=== PATIENT | male | born 1935 | race Caucasian/White ===

== ENCOUNTER → 2018-01-19 | Outpatient (CLI) | payer MEDICARE, BC ==
[2018-01-19 19:43] LABS: Protein, Total 7.3 g/dL (6.2-8.2); Rheumatoid Factor 72 IU/mL (0-15)
[2018-01-20 17:01] LABS: Hemoglobin A1C 5.8 % (4.0-6.0)
[2018-01-20 17:51] LABS: Gamma Globulin 1.04 g/dL (0.70-1.50)
== END | disposition home or self-care (01) ==
LOC: LABWHC1 13:29
PROVIDERS: ATTEND Psychiatry & Neurology Neurology
DX: G62.9 Polyneuropathy, unspecified (principal)
CPT/HCPCS: 36415; 82550; 83036; 84165; 85652; 86038; 86235; 86334; 86431

== ENCOUNTER 2022-11-09 16:01 | Inpatient (IN) | payer MEDICARE, BC ==
[2022-11-09] MEDS ORDERED: SODIUM CHLORIDE 0.9% 500 ML 500 ML IV STA (16:23)
--- NOTE | 2022-11-09 16:38 | ED ---
General Adult HPI - General Chief complaint: Altered Mental Status Stated complaint: Poss. sepsis Time Seen by Provider: 11/09/22 16:15 Source: patient, EMS, RN notes reviewed, old records reviewed Mode of arrival: EMS Limitations: altered mental status - History of Present Illness Initial comments: This is an 87-year-old male who presents to the emergency department from the long term they sent him because he was more lethargic than normal. They were concerned that he might have an infection but they did not indicate any possible source. Patient himself is a poor historian not giving us any history no family members or caregivers with the patient for any further history. - Related Data Home Medications Medication Instructions Recorded Confirmed Aspirin 81 mg PO DAILY@89912/09/13 11/09/22 Atenolol [Tenormin] 25 mg PO DAILY@89912/09/13 11/09/22 Finasteride 5 mg PO HS@209912/09/13 11/09/22 Cholecalciferol [Vitamin D3 (25 25 mcg PO DAILY@89911/09/22 11/09/22 Mcg = 1000 Iu)] EPINEPHrine (Auto Inject) [Epipen] 0.3 mg IM ONCE PRN 11/09/22 11/09/22 Famotidine [Pepcid] 20 mg PO DAILY@89911/09/22 11/09/22 Olanzapine Reconstituted 2.5 mg IM Q4H PRN 11/09/22 11/09/22 Simvastatin [Zocor] 20 mg PO HS@209911/09/22 11/09/22 Tamsulosin [Flomax] 0.4 mg PO HS@209911/09/22 11/09/22 risperiDONE [RisperDAL] 0.25 mg PO BID@0900,209911/09/22 11/09/22 Allergies Allergy/AdvReac Type Severity Reaction Status Date / Time acetaminophen [From Vicodin] Allergy Unknown Verified 11/09/22 16:56 atorvastatin [From Lipitor] Allergy Unknown, Verified 11/09/22 16:56 Information from [facility] [place] bee venom protein (honey bee) Allergy Unknown, Verified 11/09/22 16:56 Information from [facility] [place] ezetimibe [From Zetia] Allergy Unknown, Verified 11/09/22 16:56 Information from [facility] [place] hydrocodone bitartrate Allergy Unknown, Verified 11/09/22 16:56 [From Vicodin] Information from [facility] [place] metronidazole [From Flagyl] Allergy Unknown, Verified 11/09/22 16:56 Information from [facility] [place] nitrofurantoin Allergy Unknown, Verified 11/09/22 16:56 [From Macrodantin] Information from [facility] the [place] Review of Systems ROS Statement: Those systems with pertinent positive or pertinent negative responses have been documented in the HPI. ROS Other: All systems not noted in ROS Statement are negative. Past Medical History Past Medical History: Hyperlipidemia Additional Past Medical History / Comment(s): See Dr Weaver H&P,neuropathy, hx kidney stone History of Any Multi-Drug Resistant Organisms: None Reported Past Surgical History: Appendectomy, Heart Catheterization Past Anesthesia/Blood Transfusion Reactions: No Reported Reaction Past Psychological History: No Psychological Hx Reported Past Alcohol Use History: Occasional Past Drug Use History: None Reported - Past Family History Mother Family Medical History: Cancer General Exam - General Exam Comments Initial Comments: GENERAL: Patient is well-developed and well-nourished. Patient is nontoxic and well- hydrated and is in no acute distress. Patient is very fatigued. ENT: Neck is soft and supple. No significant lymphadenopathy is noted. Oropharynx is clear. Moist mucous membranes. Neck has full range of motion without eliciting any pain. EYES: The sclera were anicteric and conjunctiva were pink and moist. Extraocular movements were intact and pupils were equal round and reactive to light. Eyelids were unremarkable. PULMONARY: Unlabored respirations. Good breath sounds bilaterally. No audible rales rhonchi or wheezing was noted. CARDIOVASCULAR: There is a regular rate and rhythm without any murmurs gallops or rubs. ABDOMEN: Soft and nontender with normal bowel sounds. SKIN: Skin is clear with no lesions or rashes and otherwise unremarkable. NEUROLOGIC: Patient is alert and oriented 1. Cranial nerves II through XII are grossly intact. Motor and sensory are also intact. Normal speech, volume and content. Symmetrical smile. MUSCULOSKELETAL: Normal extremities with adequate strength and full range of motion. No lower extremity swelling or edema. No calf tenderness. LYMPHATICS: No significant lymphadenopathy is noted PSYCHIATRIC: Unable to assess Limitations: altered mental status Course Vital Signs 11/09/22 11/09/22 16:11 18:45 Temperature 98.3 F Pulse Rate 84 79 Respiratory 28 H 22 Rate Blood Pressure 88/54 95/50 O2 Sat by Pulse 96 95 Oximetry Medical Decision Making - Medical Decision Making EKG was interpreted by myself shows atrial fibrillation at 85 bpm QRS 101 Q-T intervals 443 QTC is 46. Patient's EKG shows no ST segment elevation or depression. Was pt. sent in by a medical professional or institution (, PA, HVAC INSTRUCTOR, urgent care, hospital, or long term...) When possible be specific @ -Patient was sent in by the long term Did you speak to anyone other than the patient for history (EMS, parent, family, police, friend...)? What history was obtained from this source @ -No Did you review nursing and triage notes (agree or disagree)? Why? @ -I reviewed and agree with nursing and triage notes Were old charts reviewed (outside hosp., previous admission, EMS record, old EKG, old radiological studies, urgent care reports/EKG's, long term records)? Report findings @ -I reviewed the long term charts lab work Differential Diagnosis (chest pain, altered mental status, abdominal pain women, abdominal pain men, vaginal bleeding, weakness, fever, dyspnea, syncope, headache, dizziness, GI bleed, back pain, seizure, CVA, palpatations, mental health, musculoskeletal)? @ -Differential Altered Mental Status: Hypoglycemia, DKA, hypercapnia, ETOH, overdose, CO poisoning, trauma, myxedema coma, HTN encephalopathy, infection, encephalitis, psychosis, intercranial hemorrhage, hepatic encephalopathy, meningitis, CVA, this is not meant to be an all-inclusive list EKG interpreted by me (3pts min.). @ -As above X-rays interpreted by me (1pt min.). @ -Chest x-ray showed no acute abnormality CT interpreted by me (1pt min.). @ -CT of the brain showed no acute abnormality U/S interpreted by me (1pt. min.). @ -None done What testing was considered but not performed or refused? (CT, X-rays, U/S, labs)? Why? @ -None What meds were considered but not given or refused? Why? @ -None Did you discuss the management of the patient with other professionals (professionals i.e. , ROSINA, HVAC INSTRUCTOR, lab, RT, psych nurse, social work case manager, cattle knocker, teacher, health promotion officer, case supervisor)? Give summary @ -I spoke with Dr. Almazan about this patient he agreed to admit the patient Was smoking cessation discussed for >3mins.? @ -No Was critical care preformed (if so, how long)? @ -No Were there social determinants of health that impacted care today? How? (Homelessness, low income, unemployed, alcoholism, drug addiction, transportation, low edu. Level, literacy, decrease access to med. care, senior living, rehab)? @ -No Was there de-escalation of care discussed even if they declined (Discuss DNR or withdrawal of care, Hospice)? DNR status @ -No What co-morbidities impacted this encounter? (DM, HTN, Smoking, COPD, CAD, Cancer, CVA, ARF, Chemo, Hep., AIDS, mental health diagnosis, sleep apnea, morbid obesity)? @ -None Was patient admitted / discharged? Hospital course, mention meds given and route, prescriptions, significant lab abnormalities, going to OR and other pertinent info. @ -Patient was started on antibiotics for the urinary tract infection patient will also have his Coumadin held troponin was mildly elevated at will be repeated. A hepatitis panel will be also added. Because the patient's bilirubin 6.6. Undiagnosed new problem with uncertain prognosis? @ -No Drug Therapy requiring intensive monitoring for toxicity (Heparin, Nitro, Insulin, Cardizem)? @ -No Were any procedures done? @ -No Diagnosis/symptom? @ -Urinary tract infection Acute, or Chronic, or Acute on Chronic? @ -Acute Uncomplicated (without systemic symptoms) or Complicated (systemic symptoms)? @ -Complicated Side effects of treatment? @ -No Exacerbation, Progression, or Severe Exacerbation? @ -No Poses a threat to life or bodily function? How? (Chest pain, USA, NC, pneumonia, PE, COPD, DKA, ARF, appy, cholecystitis, CVA, Diverticulitis, Homicidal, Suicidal, threat to staff... and all critical care pts) @ -Yes this could lead to sepsis and end organ dysfunction - Lab Data Result diagrams: 11/09/22 16:35 11/09/22 16:35 Lab Results 11/09/22 11/09/22 11/09/22 Range/Units 16:35 16:35 16:35 WBC 15.1 H (3.8-10.6) k/uL RBC 2.76 L (4.30-5.90) m/uL Hgb 8.9 L (13.0-17.5) gm/dL Hct 26.2 L (39.0-53.0) % MCV 94.8 (80.0-100.0) fL MCH 32.2 (25.0-35.0) pg MCHC 33.9 (31.0-37.0) g/dL RDW 14.3 (11.5-15.5) % Plt Count 266 (150-450) k/uL MPV 8.1 Neutrophils % 95 % Lymphocytes % 2 % Monocytes % 3 % Eosinophils % 0 % Basophils % 0 % Neutrophils # 14.3 H (1.3-7.7) k/uL Lymphocytes # 0.2 L (1.0-4.8) k/uL Monocytes # 0.4 (0-1.0) k/uL Eosinophils # 0.0 (0-0.7) k/uL Basophils # 0.0 (0-0.2) k/uL Hypochromasia Slight PT 46.0 H (9.0-12.0) sec INR 4.7 H (<1.2) APTT 32.0 H (22.0-30.0) sec Sodium 134 L (137-145) mmol/L Potassium 3.6 (3.5-5.1) mmol/L Chloride 107 (98-107) mmol/L Carbon Dioxide 16 L (22-30) mmol/L Anion Gap 11 mmol/L BUN 53 H (9-20) mg/dL Creatinine 1.73 H (0.66-1.25) mg/dL Est GFR (CKD-EPI)AfAm 40 (>60 ml/min/1.73 sqM) Est GFR (CKD-EPI)NonAf 35 (>60 ml/min/1.73 sqM) Glucose 162 H (74-99) mg/dL Plasma Lactic Acid Cameron (0.7-2.0) mmol/L Calcium 7.5 L (8.4-10.2) mg/dL Magnesium 2.1 (1.6-2.3) mg/dL Total Bilirubin 6.6 H (0.2-1.3) mg/dL AST 71 H (17-59) U/L ALT 35 (4-49) U/L Alkaline Phosphatase 86 (38-126) U/L Troponin I (0.000-0.034) ng/mL Total Protein 5.4 L (6.3-8.2) g/dL Albumin 2.4 L (3.5-5.0) g/dL Urine Color Urine Appearance (Clear) Urine pH (5.0-8.0) Ur Specific [place] (1.001-1.035) Urine Protein (Negative) Urine Glucose (UA) (Negative) Urine Ketones (Negative) Urine Blood (Negative) Urine Nitrite (Negative) Urine Bilirubin (Negative) Urine Urobilinogen (<2.0) mg/dL Ur Leukocyte Esterase (Negative) Urine RBC (0-5) /hpf Urine WBC (0-5) /hpf Urine Bacteria (None) /hpf Urine Mucus (None) /hpf 11/09/22 11/09/22 11/09/22 Range/Units 16:35 16:35 16:35 WBC (3.8-10.6) k/uL RBC (4.30-5.90) m/uL Hgb (13.0-17.5) gm/dL Hct (39.0-53.0) % MCV (80.0-100.0) fL MCH (25.0-35.0) pg MCHC (31.0-37.0) g/dL RDW (11.5-15.5) % Plt Count (150-450) k/uL MPV Neutrophils % % Lymphocytes % % Monocytes % % Eosinophils % % Basophils % % Neutrophils # (1.3-7.7) k/uL Lymphocytes # (1.0-4.8) k/uL Monocytes # (0-1.0) k/uL Eosinophils # (0-0.7) k/uL Basophils # (0-0.2) k/uL Hypochromasia PT (9.0-12.0) sec INR (<1.2) APTT (22.0-30.0) sec Sodium (137-145) mmol/L Potassium (3.5-5.1) mmol/L Chloride (98-107) mmol/L Carbon Dioxide (22-30) mmol/L Anion Gap mmol/L BUN (9-20) mg/dL Creatinine (0.66-1.25) mg/dL Est GFR (CKD-EPI)AfAm (>60 ml/min/1.73 sqM) Est GFR (CKD-EPI)NonAf (>60 ml/min/1.73 sqM) Glucose (74-99) mg/dL Plasma Lactic Acid Cameron 1.6 (0.7-2.0) mmol/L Calcium (8.4-10.2) mg/dL Magnesium (1.6-2.3) mg/dL Total Bilirubin (0.2-1.3) mg/dL AST (17-59) U/L ALT (4-49) U/L Alkaline Phosphatase (38-126) U/L Troponin I 0.037 H* (0.000-0.034) ng/mL Total Protein (6.3-8.2) g/dL Albumin (3.5-5.0) g/dL Urine Color Light [place] Urine Appearance Cloudy (Clear) Urine pH 5.5 (5.0-8.0) Ur Specific [place] 1.017 (1.001-1.035) Urine Protein 1+ H (Negative) Urine Glucose (UA) Negative (Negative) Urine Ketones Negative (Negative) Urine Blood Large H (Negative) Urine Nitrite Negative (Negative) Urine Bilirubin Negative (Negative) Urine Urobilinogen 3.0 (<2.0) mg/dL Ur Leukocyte Esterase Large H (Negative) Urine RBC 157 H (0-5) /hpf Urine WBC 74 H (0-5) /hpf Urine Bacteria Rare H (None) /hpf Urine Mucus Rare H (None) /hpf Disposition Clinical Impression: Urinary tract infection, Coagulopathy, Elevated troponin, Hyperbilirubinemia Disposition: ADMITTED IP TO THIS HOSP Referrals: Evan Strange MD [STAFF PHYSICIAN] - 1-2 days Time of Disposition: 20:25 Decision Time: 20:26
[2022-11-09 16:48] LABS: Basophils % (A) 0 %; Eosinophils % (A) 0 %; HCT 26.2 % (39.0-53.0); HGB 8.9 gm/dL (13.0-17.5); Hypochromasia Slight; Lymphocytes # (A) 0.2 k/uL (1.0-4.8); Lymphocytes % (A) 2 %; MCH 32.2 pg (25.0-35.0); MCHC 33.9 g/dL (31.0-37.0); MCV 94.8 fL (80.0-100.0); Mean Platelet Volume 8.1; Monocytes # (A) 0.4 k/uL (0-1.0); Monocytes % (A) 3 %; Neutrophils # (A) 14.3 k/uL (1.3-7.7); Neutrophils % (A) 95 %; Platelet Count 266 k/uL (150-450); RBC 2.76 m/uL (4.30-5.90); RDW 14.3 % (11.5-15.5); WBC 15.1 k/uL (3.8-10.6)
[2022-11-09 17:05] LABS: INR 4.7 (<1.2)
--- NOTE | 2022-11-09 17:20 | CT ---
EXAMINATION TYPE: CT brain wo con DATE OF EXAM: 11/09/2022 COMPARISON: None HISTORY: 87-year-old male weakness, fever TECHNIQUE: Examination was done in axial plane without intravenous contrast. Coronal and sagittal r econstructions performed. CT DLP: 1113.4 mGycm Automated exposure control for dose reduction was used. FINDINGS: There is no evidence of acute intracranial hemorrhage, acute ischemic changes, mass, mass-effect, or extra-axial fluid collection. There is no effacement of cerebral sulci or basal subarachnoid cister ns. There is no midline shift. Weems-white matter distinction is preserved. 1.0 cm mucosal retention cyst roof of the right maxillary sinus. Trace mucosal thickening ethmoid air cells. Mastoid air cells are well pneumatized. Orbits and globes are intact. There is moderate generalized supratentorial volume loss. Secondary mild prominence to the ventricula r system. Mild subinsular white matter hypodensity and postsurgical hemispheres. IMPRESSION: Moderate generalized atrophy and mild burden of chronic small vessel ischemic disease. No acute intra cranial abnormality seen.
--- NOTE | 2022-11-09 17:21 | XR ---
EXAMINATION TYPE: XR chest 2V DATE OF EXAM: 11/09/2022 COMPARISON: 12/16/2013 HISTORY: 87-year-old male with weakness TECHNIQUE: AP and lateral views FINDINGS: Left anterior chest wall pacemaker generator with right atrial and right ventricular leads. Heart upp er limits of normal in size. Mild interstitial prominence. Old healed right posterior rib fracture de formity fifth and sixth ribs. Chronic full-thickness rotator cuff tears on both sides. No consolidati on or pleural effusion. IMPRESSION: Chronic changes without acute cardiopulmonary process.
[2022-11-09 17:37] LABS: Appearance,Urine Cloudy (Clear); Bacteria,Urine Rare /hpf; Bilirubin,Urine Negative (Negative); Blood,Urine Large (Negative); Color,Urine Light Orange; Glucose,Urine (UA) Negative (Negative); Ketones,Urine Negative (Negative); Leukocyte Esterase,Urine Large (Negative); Mucus,Urine Rare /hpf; Nitrite,Urine Negative (Negative); PH, Urine 5.5 (5.0-8.0); Protein,Urine 1+ (Negative); RBC,Urine 157 /hpf (0-5); Specific Gravity,Urine 1.017 (1.001-1.035); WBC,Urine 74 /hpf (0-5)
[2022-11-09 17:51] LABS: ALT 35 U/L (4-49); AST 71 U/L (17-59); African American GFR (CKD) 40 (>60 ml/min/1.73 sqM); Albumin 2.4 g/dL (3.5-5.0); Alkaline Phosphatase 86 U/L (38-126); Anion Gap 11 mmol/L; Blood Urea Nitrogen 53 mg/dL (9-20); Calcium 7.5 mg/dL (8.4-10.2); Carbon Dioxide 16 mmol/L (22-30); Chloride 107 mmol/L (98-107); Glucose 162 mg/dL (74-99); Magnesium 2.1 mg/dL (1.6-2.3); Non-African American GFR(CKD) 35 (>60 ml/min/1.73 sqM); Sodium 134 mmol/L (137-145); Total Bilirubin 6.6 mg/dL (0.2-1.3); Total Protein 5.4 g/dL (6.3-8.2)
[2022-11-09 17:58] LABS: Potassium 3.6 mmol/L (3.5-5.1)
[2022-11-09] MEDS ORDERED: SODIUM CHLORIDE 0.9% 1,000 ML IV ONE (20:26)
[2022-11-09] MEDS: TAMSULOSIN 0.4 MG CAP.ER.24H PO SCH (22:44)
[2022-11-10] MEDS: FINASTERIDE 5 MG TAB PO SCH ×2 (00:44→21:09)
[2022-11-10] MEDS: NON FORMULARY DRUG (Simvastatin 20 MG Tab) PO SCH ×2 (00:45→20:09)
[2022-11-10] MEDS: risperiDONE 0.25 MG TAB PO SCH ×3 (00:45→21:10)
[2022-11-10] MEDS ORDERED: atenoloL 25 MG TAB PO SCH (09:00)
[2022-11-10] MEDS: FAMOTIDINE 20 MG TAB PO SCH (10:02)
[2022-11-10] MEDS: CHOLECALCIFEROL 25 MCG (1000 IU) TABLET PO SCH (10:02)
[2022-11-10] MEDS: ASPIRIN 81 MG PO SCH (10:02)
[2022-11-10] MEDS ORDERED: HYDROcodone/APAP 5-325MG 1 EACH TAB PO STA (12:48)
[2022-11-10] MEDS: SODIUM CHLORIDE 0.9% 1,000 ML IV SCH (17:07)
--- NOTE | 2022-11-10 17:41 | XR ---
EXAMINATION TYPE: XR shoulder complete BILAT DATE OF EXAM: 11/10/2022 COMPARISON: NONE HISTORY: 87-year-old male bilateral shoulder pain TECHNIQUE: 3 views each side FINDINGS: There are chronic full-thickness tears on both sides with abutment of the humeral heads to the unders urface of the acromion. Fragmentation of the left acromioclavicular degenerative chronic abutment str ess fracture. There is associated minimal joint osteoarthrosis with a marginal spurring. Moderate deg enerative change of the AC joints. Left anterior chest wall pacemaker generator noted. Old healed doug ateral rib fracture deformities. IMPRESSION: Bilateral chronic rotator cuff arthropathy. Possible chronic stress fracture left acromion from the o ngoing glenohumeral joint instability. Moderate bilateral AC joint OA.
--- NOTE | 2022-11-10 18:15 | P.HPIM ---
History of Present Illness H&P Date: 11/10/22 Chief Complaint: Tired 87-year-old patient, brought in from [facility] in the [place]/[facility]. Patient was noted by the nurses to have decreased mental status. 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 Was found to be more lethargic and difficult to arouse at times. EKG was paced rhythm. Initial blood pressure was 73/44. Pulse of 91. Pulse ox of 97%. Repeat blood pressure was 86/40. Patient himself is not able to give any much history. found a significant bruise in the left side of the body especially the flank going over the thigh. Patient is not sure if he hada fall. Patient not a good historian. Can only answer some simple questions. Nonambulatory. Weak in both the shoulders. Pain in the shoulder. Has a Tabares catheter with some blood in there. Review of systems: GEN.: Tired. Significant bruising on the left side EYES: None HEENT: None NECK: None RESPIRATORY: None CARDIOVASCULAR: None GASTROINTESTINAL: None GENITOURINARY: Only catheter MUSCULOSKELETAL: Joint pains LYMPHATICS: None HEMATOLOGICAL: None PSYCHIATRY: Forgetful NEUROLOGICAL: None Past medical history to include: Atrial fibrillation, stroke, hyperlipidemia, , kidney stones. 6 sinus syndrome with a pacemaker. Peripheral neuropathy Social history: Nonsmoker. Alcohol occasionally. Currently at [facility] in the [place] Physical examination: VITAL SIGNS: 98.3, 84, 26, 88/54, 96% room air upon presentation GENERAL: BMI 28.9, declining but awake not in distress. Significant bruising in the left flank going down to the left thigh. EYES: Pupils equal. Conjunctiva normal. HEENT: External appearance of nose and ears normal, oral cavity grossly normal. NECK: JVD not raised; masses not palpable. HEART: First and second heart sounds are normal; no edema. LUNGS: Respiratory rate normal; clear to auscultation. ABDOMEN: Soft, nontender, liver spleen not palpable, no masses palpable. PSYCH: Patient can't tell his name, he knows in the hospital. Does not know why he is here. Not sure about the season.l. MUSCULOSKELETAL: Very limited range of motion both the shoulders. Evidence of OA in other joints. NEUROLOGICAL: Cranial nerves grossly intact; no facial asymmetry, power and sensation grossly intact. LYMPHATICS: No lymph nodes palpable in the axilla and neck INVESTIGATIONS, reviewed in the clinical context: X-ray shoulders: Bilateral chronic rotator cuff arthropathy. Possible chronic stress fracture left acromion from the ongoing glenohumeral joint instability. 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 White count 15.1 hemoglobin 8.9 platelets 266 INR 4.7 sodium 134 potassium 3.6 BUN 53 creatinine 1.73 bicarb 16 Troponin I 0.037, 0.021 Total bilirubin 6.6 AST 71 ALT 35 UA: Blood: Large. Leukoesterase large. WBC 74. EKG tracing personally reviewed by me-atrial fibrillation. Rate 85 Chest x-ray film personally reviewed by me-some hyperinflation. Pacemaker. Possible chronic changes. Computed tomography scan brain without contrast: Moderate atrophy. Chronic small vessel ischemic changes. Assessment and plan: -Presented with increasing lethargy. Mental status changes. Likely metabolic encephalopathy. Exact cause unknown. Patient's creatinine is elevated. IV fluids. -Coumadin toxicity. No overt bleeding. significant bruising in the left flank going down to the left thigh. Rule out retroperitoneal bleed/bleeding around the source. Computed tomography scan abdomen and pelvis without contrast ordered. Vitamin K 2.5 mg by mouth. 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 Rate controlled. Stop atenolol for now follow blood pressure. We will use Lopressor 12.5 by mouth daily. Because of significant bruising stop Coumadin -Chronic medical debility -Abnormal renal function. Acute versus chronic. Urine showing 1+ protein. Order renal ultrasound. Consult nephrology. -Hypotension. Hold off atenolol. IV fluids -GERD Pepcid -BPH Finasteride 5 mg daily at bedtime. Flomax 0.4 mg daily at bedtime. -Bilateral shoulder very limited range of motion.Bilateral chronic rotator cuff arthropathy. Possible chronic stress fracture left acromion from the ongoing glenohumeral joint instability. 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 . Consult orthopedics. -DO NOT RESUSCITATE Past Medical History Past Medical History: Atrial Fibrillation, CVA/TIA, Hyperlipidemia Additional Past Medical History / Comment(s): See Dr Weaver H&P,neuropathy, hx kidney stone History of Any Multi-Drug Resistant Organisms: None Reported Past Surgical History: Appendectomy, Heart Catheterization Past Anesthesia/Blood Transfusion Reactions: No Reported Reaction Smoking Status: Never smoker - Past Family History Mother Family Medical History: Cancer Medications and Allergies Home Medications Medication Instructions Recorded Confirmed Type Aspirin 81 mg PO DAILY@89912/09/13 11/09/22 History Atenolol [Tenormin] 25 mg PO DAILY@89912/09/13 11/09/22 History Finasteride 5 mg PO HS@209912/09/13 11/09/22 History Cholecalciferol [Vitamin D3 (25 25 mcg PO DAILY@89911/09/22 11/09/22 History Mcg = 1000 Iu)] EPINEPHrine (Auto Inject) [Epipen] 0.3 mg IM ONCE PRN 11/09/22 11/09/22 History Famotidine [Pepcid] 20 mg PO DAILY@89911/09/22 11/09/22 History Olanzapine Reconstituted 2.5 mg IM Q4H PRN 11/09/22 11/09/22 History Simvastatin [Zocor] 20 mg PO HS@209911/09/22 11/09/22 History Tamsulosin [Flomax] 0.4 mg PO HS@209911/09/22 11/09/22 History risperiDONE [RisperDAL] 0.25 mg PO BID@0900,209911/09/22 11/09/22 History Allergies Allergy/AdvReac Type Severity Reaction Status Date / Time acetaminophen [From Vicodin] Allergy Unknown Verified 11/09/22 16:56 atorvastatin [From Lipitor] Allergy Unknown, Verified 11/09/22 16:56 Information from [facility] on the [place] bee venom protein (honey bee) Allergy Unknown, Verified 11/09/22 16:56 Information from [facility] [place] ezetimibe [From Zetia] Allergy Unknown, Verified 11/09/22 16:56 Information from [facility] on the [place] hydrocodone bitartrate Allergy Unknown, Verified 11/09/22 16:56 [From Vicodin] Information from [facility] [place] metronidazole [From Flagyl] Allergy Unknown, Verified 11/09/22 16:56 Information from [facility] on the [place] nitrofurantoin Allergy Unknown, Verified 11/09/22 16:56 [From Macrodantin] Information from [facility] on the [place] Physical Exam Vitals: Vital Signs Temp Pulse Pulse Resp BP BP Pulse Ox 11/10/22 12:01 100/59 07/16/23 11:57 97.5 F L 63 18 84/43 95 11/10/22 08:57 97.4 F L 79 18 109/62 96 11/10/22 08:36 98 11/10/22 04:00 97.8 F 68 18 97/54 98 11/10/22 01:59 68 18 11/09/22 23:40 97.4 F L 68 18 126/72 96 11/09/22 21:45 73 16 102/62 98 11/09/22 18:45 79 22 95/50 95 11/09/22 16:11 98.3 F 84 28 H 88/54 96 FiO2 11/10/22 12:01 11/10/22 11:57 11/10/22 08:57 11/10/22 08:36 21 11/10/22 04:00 11/10/22 01:59 11/09/22 23:40 11/09/22 21:45 11/09/22 18:45 11/09/22 16:11 Intake and Output 11/09/22 11/10/22 11/10/22 22:59 06:59 14:59 Output Total 1200 600 Balance -1200 -600 Output: Urine 1200 600 Other: Voiding Method Indwelling Catheter # Bowel Movements 1 Weight 86.183 kg 86.183 kg Results CBC & Chem 7: 11/09/22 16:35 11/09/22 16:35 Labs: Abnormal Lab Results - Last 24 Hours (Table) 11/09/22 11/09/22 11/09/22 Range/Units 16:35 16:35 16:35 WBC 15.1 H (3.8-10.6) k/uL RBC 2.76 L (4.30-5.90) m/uL Hgb 8.9 L (13.0-17.5) gm/dL Hct 26.2 L (39.0-53.0) % Neutrophils # 14.3 H (1.3-7.7) k/uL Lymphocytes # 0.2 L (1.0-4.8) k/uL PT 46.0 H (9.0-12.0) sec INR 4.7 H (<1.2) APTT 32.0 H (22.0-30.0) sec Sodium 134 L (137-145) mmol/L Carbon Dioxide 16 L (22-30) mmol/L BUN 53 H (9-20) mg/dL Creatinine 1.73 H (0.66-1.25) mg/dL Glucose 162 H (74-99) mg/dL Calcium 7.5 L (8.4-10.2) mg/dL Total Bilirubin 6.6 H (0.2-1.3) mg/dL AST 71 H (17-59) U/L Troponin I (0.000-0.034) ng/mL Total Protein 5.4 L (6.3-8.2) g/dL Albumin 2.4 L (3.5-5.0) g/dL Urine Protein (Negative) Urine Blood (Negative) Ur Leukocyte Esterase (Negative) Urine RBC (0-5) /hpf Urine WBC (0-5) /hpf Urine Bacteria (None) /hpf Urine Mucus (None) /hpf 11/09/22 11/09/22 Range/Units 16:35 16:35 WBC (3.8-10.6) k/uL RBC (4.30-5.90) m/uL Hgb (13.0-17.5) gm/dL Hct (39.0-53.0) % Neutrophils # (1.3-7.7) k/uL Lymphocytes # (1.0-4.8) k/uL PT (9.0-12.0) sec INR (<1.2) APTT (22.0-30.0) sec Sodium (137-145) mmol/L Carbon Dioxide (22-30) mmol/L BUN (9-20) mg/dL Creatinine (0.66-1.25) mg/dL Glucose (74-99) mg/dL Calcium (8.4-10.2) mg/dL Total Bilirubin (0.2-1.3) mg/dL AST (17-59) U/L Troponin I 0.037 H* (0.000-0.034) ng/mL Total Protein (6.3-8.2) g/dL Albumin (3.5-5.0) g/dL Urine Protein 1+ H (Negative) Urine Blood Large H (Negative) Ur Leukocyte Esterase Large H (Negative) Urine RBC 157 H (0-5) /hpf Urine WBC 74 H (0-5) /hpf Urine Bacteria Rare H (None) /hpf Urine Mucus Rare H (None) /hpf Thrombosis Risk Factor Assmnt - Choose All That Apply Any of the Below Risk Factors Present?: Yes Each Risk Factor Represents 3 Points: Age 75 years or older Thrombosis Risk Factor Assessment Total Risk Factor Score: 3 Thrombosis Risk Factor Assessment Level: Moderate Risk
[2022-11-10] MEDS ORDERED: PHYTONADIONE ORAL 5 MG/5 ML ORAL.SYRG PO STA (18:20)
--- NOTE | 2022-11-10 19:08 | CT ---
EXAMINATION TYPE: CT abdomen pelvis wo con DATE OF EXAM: 11/10/2022 COMPARISON: None HISTORY: 87-year-old male with pain, possible left retroperitoneal/retropsoas bleed CT DLP: 1073.7 mGycm. Automated exposure control for dose reduction was used. TECHNIQUE: Contiguous axial scanning of the abdomen and pelvis without IV contrast. Coronal and sagit mya reconstructions performed. FINDINGS: Right atrial and right ventricular pacer leads. Heart is borderline in size. No pericardial effusion. There are trace bilateral pleural effusions with adjacent atelectasis. Small hiatal hernia. Motion artifacts are present. Allowing for this limitation along with lack of IV contrast, the liver, adrenal glands, spleen, and p ancreas show no gross abnormality. The gallbladder is hydropic and 4.3 cm wide but without any surrounding inflammation, probably due to fasting state. Suspect extrarenal pelvis on both sides. Mild generalized anasarca change. No dilated small bowel, free fluid, or free air. No mesenteric retroperitoneal lymphadenopathy. There is a small indirect right inguinal hernia containing nonobstructed small bowel loops. No signif icant stool burden. Mild colonic diverticulosis. No pericolonic masses are seen. Moderate atherosclerotic calcification abdominal aorta and iliac arteries. Tabares catheter. Moderate circumferential bladder wall thickening. Prostate gland measures 6.3 cm wide . There is focal left inguinal perivascular hematoma or other fluid collection measuring 6.7 x 3.5 cm. Further Doppler ultrasound evaluation recommended to exclude pseudoaneurysm. Correlate for any cathet er procedure at the left groin. No pelvic lymphadenopathy. Bones: Moderate spondylotic change mid to lower cervical spine. IMPRESSION: 1. Focal left inguinal region heterogeneous soft tissue and fluid collection measuring 6.7 x 3.5 cm. Possible hematoma. Further Doppler ultrasound evaluation recommended to exclude pseudoaneurysm here. Correlate for any recent catheter procedure here. 2. Mild anasarca and trace pleural effusions. Correlate for third spacing. 3. Small right indirect hernia containing a couple nonobstructed small bowel loops. 4. Bilateral extra renal pelves. No danyell hydronephrosis. A Tabares catheter is present. Moderate irena dder wall thickening could represent chronic bladder wall hypertrophy or cystitis. Prostatomegaly/BPH at 6.3 cm wide.
--- NOTE | 2022-11-10 19:11 | US ---
EXAMINATION TYPE: US kidneys/renal and bladder DATE OF EXAM: 11/10/2022 COMPARISON: CT same day CLINICAL INDICATION: Male, 87 years old with history of Evaluate for CKD; UTI, CKD, patient is very c onfused EXAM MEASUREMENTS: Right Kidney: 11.3 x 5.7 x 6.7cm Left Kidney: 11.8 x 4.5 x 6.1cm Right Kidney: Dilation of the right renal pelvis. Left Kidney: No hydronephrosis or masses seen Bladder: umanzor There is no evidence for hydronephrosis at this point in time. No nephrolithiasis is seen. No rupesh s are identified. The urinary bladder is anechoic. Bilateral ureteral jets are seen. IMPRESSION: 1. Umanzor catheter in appropriate position. 2. Bilateral extrarenal pelves as seen on CT. No definitive hydronephrosis
[2022-11-10] MEDS: TAMSULOSIN 0.4 MG CAP.ER.24H PO SCH (21:08)
[2022-11-11] MEDS: SODIUM CHLORIDE 0.9% 1,000 ML IV SCH ×2 (07:03→15:49)
[2022-11-11] MEDS: risperiDONE 0.25 MG TAB PO SCH ×2 (08:54→20:52)
[2022-11-11] MEDS: FAMOTIDINE 20 MG TAB PO SCH (08:54)
[2022-11-11] MEDS: ASPIRIN 81 MG PO SCH (08:54)
[2022-11-11] MEDS: CHOLECALCIFEROL 25 MCG (1000 IU) TABLET PO SCH (08:54)
[2022-11-11 09:26] LABS: INR 1.7 (<1.2); Prothrombin Time 16.6 sec (9.0-12.0)
[2022-11-11 09:37] LABS: Basophils % (A) 0 %; Eosinophils % (A) 0 %; HCT 32.5 % (39.0-53.0); HGB 10.4 gm/dL (13.0-17.5); Hypochromasia Moderate; Lymphocytes # (A) 0.1 k/uL (1.0-4.8); Lymphocytes % (A) 1 %; MCH 30.6 pg (25.0-35.0); MCV 95.7 fL (80.0-100.0); Mean Platelet Volume 8.3; Monocytes # (A) 0.2 k/uL (0-1.0); Monocytes % (A) 2 %; Neutrophils # (A) 12.4 k/uL (1.3-7.7); Neutrophils % (A) 97 %; Platelet Count 177 k/uL (150-450); Poikilocytosis Slight; RBC 3.39 m/uL (4.30-5.90); RDW 14.2 % (11.5-15.5); WBC 12.9 k/uL (3.8-10.6)
[2022-11-11 10:06] LABS: African American GFR (CKD) >90 (>60 ml/min/1.73 sqM); Anion Gap 7 mmol/L; Blood Urea Nitrogen 33 mg/dL (9-20); Calcium 7.5 mg/dL (8.4-10.2); Carbon Dioxide 21 mmol/L (22-30); Chloride 114 mmol/L (98-107); Glucose 148 mg/dL (74-99); Non-African American GFR(CKD) 82 (>60 ml/min/1.73 sqM); Potassium 2.8 mmol/L (3.5-5.1); Sodium 142 mmol/L (137-145)
[2022-11-11] MEDS ORDERED: Potassium Replacement Protocol 1 EACH MISC MISCELLANE PRN (11:51)
[2022-11-11] MEDS ORDERED: POTASSIUM CHLORIDE 20 MEQ in WATER FOR INJECTION 1 100ML.BAG IVPB STA (11:51)
--- NOTE | 2022-11-11 12:16 | P.CNOR ---
History of Present Illness - [facility] Consult date: 11/11/22 Consult reason: joint pain (Bilateral shoulder pain) History of present illness: Patient is an 87-year-old male who was admitted to [facility] in hospital after being transferred from subacute rehab due to lethargy and altered mental status. Patient was found to have multiple lab abnormalities including very elevated INR. Patient was admitted to [facility] for further evaluation. 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 Patient was complaining of bilateral shoulder pain, x-rays were ordered. Our orthopedic team was then consulted. Patient was evaluated today at bedside, he is resting in his hospital bed. Obtaining a medical history and review of systems was difficult. Patient states that both shoulders have bothered him for a very long time, he denies any recent surgical intervention. Patient is unsure if he has had any recent falls. He notes most of the pain in the shoulders with movement. Review of Systems Constitutional: Reports as per [facility] Past Medical History Past Medical History: Atrial Fibrillation, CVA/TIA, Hyperlipidemia Additional Past Medical History / Comment(s): See Dr Weaver H&P,neuropathy, hx kidney stone History of Any Multi-Drug Resistant Organisms: None Reported Past Surgical History: Appendectomy, Heart Catheterization Past Anesthesia/Blood Transfusion Reactions: No Reported Reaction Smoking Status: Never smoker - Past Family History Mother Family Medical History: Cancer Medications and Allergies Home Medications Medication Instructions Recorded Confirmed Type Aspirin 81 mg PO DAILY@89912/09/13 11/09/22 History Atenolol [Tenormin] 25 mg PO DAILY@89912/09/13 11/09/22 History Finasteride 5 mg PO HS@2100 12/09/13 11/09/22 History Cholecalciferol [Vitamin D3 (25 25 mcg PO DAILY@89911/09/22 11/09/22 History Mcg = 1000 Iu)] EPINEPHrine (Auto Inject) [Epipen] 0.3 mg IM ONCE PRN 11/09/22 11/09/22 History Famotidine [Pepcid] 20 mg PO DAILY@89911/09/22 11/09/22 History Olanzapine Reconstituted 2.5 mg IM Q4H PRN 11/09/22 11/09/22 History Simvastatin [Zocor] 20 mg PO HS@2100 11/09/2211/09/23 History Tamsulosin [Flomax] 0.4 mg PO HS@209911/09/22 11/09/22 History risperiDONE [RisperDAL] 0.25 mg PO BID@09,209911/09/22 11/09/22 History Allergies Allergy/AdvReac Type Severity Reaction Status Date / Time acetaminophen [From Vicodin] Allergy Unknown Verified 11/09/22 16:56 atorvastatin [From Lipitor] Allergy Unknown, Verified 11/09/22 16:[address] [facility] on the [place] bee venom protein (honey bee) Allergy Unknown, Verified 11/09/22 16:[address] [facility] [place] ezetimibe [From Zetia] Allergy Unknown, Verified 11/09/22 16:[address] [facility] [place] hydrocodone bitartrate Allergy Unknown, Verified 11/09/22 16:56 [From Vicodin] Information from [facility] [place] metronidazole [From Flagyl] Allergy Unknown, Verified 11/09/22 16:[address] [facility] [place] nitrofurantoin Allergy Unknown, Verified 11/09/22 16:56 [From Macrodantin] Information from [facility] [place] Physical Examination Bilateral upper extremities: No obvious open lesions or sores are visualized throughout the extremity. There are multiple areas of ecchymosis throughout the bilateral upper extremities. Deformity is noted on the left shoulder compared to the right hand side with chronic migration of the humeral head Patient demonstrates obvious tenderness with palpation surrounding the shoulder, this including general joint line in the acromioclavicular joint. Patient is nontender with palpation throughout the elbow, and forearm. He does have some chronic deformities the right wrist which is painful surrounding. No tenderness with palpation surrounding the left elbow, left hand or wrist Range of motion of the shoulder is very limited due to pain, both actively and passively. Elbow extension and flexion both passively and actively reproduced minimal discomfort. Pain is reproduced with flexion and extension of the right wrist. Left wrist and hand have painless range of motion both actively and passively Strength testing was not assessed of the bilateral upper extremities Sensation to light touch throughout the extremity was intact bilaterally Radial nerve pulses are 2+ bilaterally Results - Labs Labs: Abnormal Lab Results - Last 24 Hours (Table) 11/11/22 11/11/22 11/11/22 Range/Units 08:49 08:49 08:49 WBC 12.9 H (3.8-10.6) k/uL RBC 3.39 L (4.30-5.90) m/uL Hgb 10.4 L (13.0-17.5) gm/dL Hct 32.5 L (39.0-53.0) % Neutrophils # 12.4 H (1.3-7.7) k/uL Lymphocytes # 0.1 L (1.0-4.8) k/uL PT 16.6 H (9.0-12.0) sec INR 1.7 H (<1.2) Potassium 2.8 L (3.5-5.1) mmol/L Chloride 114 H (98-107) mmol/L Carbon Dioxide 21 L (22-30) mmol/L BUN 33 H (9-20) mg/dL Glucose 148 H (74-99) mg/dL Calcium 7.5 L (8.4-10.2) mg/dL H & H 11/09/22 11/11/22 Range/Units 16:35 08:49 Hgb 8.9 L 10.4 L (13.0-17.5) gm/dL Hct 26.2 L 32.5 L (39.0-53.0) % Coagulation 11/09/22 11/11/22 Range/Units 16:35 08:49 INR 4.7 H 1.7 H (<1.2) Result Diagrams: 11/11/22 08:49 11/11/22 08:49 - Diagnostic results Shoulder x-ray: report reviewed, image reviewed (X-rays are reviewed of the bilateral shoulders. Chronic rotator cuff arthropathy noted bilaterally. S uperior migration of the humeral head noted of the bilateral shoulders. Osseous changes noted to the left acromion, this due to the rotator cuff arthropathy. No acute fractures or dislocations ) Assessment and Plan Assessment: Bilateral shoulder pain Bilateral shoulder rotator cuff arthropathy Chronic medical debility Other medical comorbidities Plan: I was able to discuss the case, was to include both physical exam findings and imaging studies my attending Dr. Wynn. No emergent orthopedic surgical intervention is recommended at this time Recommended conservative measures, this to include ice, Tylenol or NSAIDs, okay with low-dose narcotics due to the severity of both shoulders DVT prophylaxis per primary medical service Due to patient's current medical state, orthopedically he is not a candidate at this time for surgical intervention, patient would need bilateral reverse total shoulder arthroplasties. Please contact our service with any further questions regarding this patient Time with Patient: Less than 30
--- NOTE | 2022-11-11 12:17 | P.NPCON ---
History of Present Illness - Reason for Consult acute renal failure - History of Present Illness Patient is an 87-year-old male admitted from [facility] with history of decreased mentation. Patient does have previous history of CVA but there was deterioration of his mental status noted. On admission blood pressure was low with systolic at 73 mmHg. A Tabares catheter was placed with what appears to be 1200 mL of urine obtained on initial insertion. No significant hydronephrosis noted on ultrasound. Serum creatinine was 1.7 on initial admission and improved to 0.7 today. Currently maintained on IV fluids. Systolic blood pressure now 1 46 mmHg. Patient does not communicate much. Review of Systems As per HPI. Past Medical History Past Medical History: Atrial Fibrillation, CVA/TIA, Hyperlipidemia Additional Past Medical History / Comment(s): See Dr Weaver H&P,neuropathy, hx kidney stone History of Any Multi-Drug Resistant Organisms: None Reported Past Surgical History: Appendectomy, Heart Catheterization Past Anesthesia/Blood Transfusion Reactions: No Reported Reaction Smoking Status: Never smoker - Past Family History Mother Family Medical History: Cancer Medications and Allergies Home Medications Medication Instructions Recorded Confirmed Type Aspirin 81 mg PO DAILY@89912/09/13 11/09/22 History Atenolol [Tenormin] 25 mg PO DAILY@89912/09/13 11/09/22 History Finasteride 5 mg PO HS@209912/09/13 11/09/22 History Cholecalciferol [Vitamin D3 (25 25 mcg PO DAILY@89911/09/22 11/09/22 History Mcg = 1000 Iu)] EPINEPHrine (Auto Inject) [Epipen] 0.3 mg IM ONCE PRN 11/09/22 11/09/22 History Famotidine [Pepcid] 20 mg PO DAILY@89911/09/22 11/09/22 History Olanzapine Reconstituted 2.5 mg IM Q4H PRN 11/09/22 11/09/22 History Simvastatin [Zocor] 20 mg PO HS@209911/09/22 11/09/22 History Tamsulosin [Flomax] 0.4 mg PO HS@209911/09/22 11/09/22 History risperiDONE [RisperDAL] 0.25 mg PO BID@0900,209911/09/22 11/09/22 History Allergies Allergy/AdvReac Type Severity Reaction Status Date / Time acetaminophen [From Vicodin] Allergy Unknown Verified 11/09/22 16:56 atorvastatin [From Lipitor] Allergy Unknown, Verified 11/09/22 16:56 Information from [facility] [place] bee venom protein (honey bee) Allergy Unknown, Verified 11/09/22 16:56 Information from [facility] [place] ezetimibe [From Zetia] Allergy Unknown, Verified 11/09/22 16:56 Information from [facility] [place] hydrocodone bitartrate Allergy Unknown, Verified 11/09/22 16:56 [From Vicodin] Information from [facility] [place] metronidazole [From Flagyl] Allergy Unknown, Verified 11/09/22 16:56 Information from [facility] [place] nitrofurantoin Allergy Unknown, Verified 11/09/22 16:56 [From Macrodantin] Information from [facility] [place] Physical Exam Vitals: Vital Signs Temp Pulse Resp BP Pulse Ox FiO2 11/11/22 09:03 97 21 11/11/22 08:56 98.2 F 100 16 146/77 97 11/11/22 04:00 98.1 F 77 18 131/64 96 11/11/22 00:00 98.1 F 76 18 133/68 96 11/10/22 20:00 97.8 F 83 18 119/66 96 11/10/22 17:06 98.8 F 79 18 106/63 96 11/10/22 14:00 63 18 Intake and Output 11/10/22 11/11/22 11/11/22 22:59 06:59 14:59 Intake Total 0 35 Output Total 500 450 Balance -500 -450 35 Intake: IV 10 Invasive Line 1 10 Oral 0 25 Output: Urine 500 450 Other: Voiding Method Indwelling Catheter Indwelling Catheter Patient is awake, comfortable, no acute distress Examination of the heart S1 and S2 Examination the lungs decreased breath sounds at the bases Abdomen is soft mild tenderness noted Examination lower extremity shows no significant edema 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 He is able to move his upper extremities. Results - Lab Results Most recent lab results Calcium 7.5 mg/dL (8.4-10.2) L 11/11/22 08:49 Magnesium 2.1 mg/dL (1.6-2.3) 11/09/22 16:35 11/11/22 08:49 11/11/22 08:49 Assessment and Plan Assessment: 1. Acute kidney injury ATN secondary to low blood pressure as well as element of underlying urine retention. Currently with Tabares catheter and maintained on IV fluids with improved blood pressure. 2. Mental status changes secondary to volume depletion, metabolic encephalopathy. Patient has history of underlying dementia and previous history of CVA 3. Coumadin related coagulopathy 4. Chronic persistent A. fib 5. History of BPH 6. Hypokalemia secondary to decreased intake 7. Pyuria rule out underlying UTI Plan: Continue with Tabares catheter Continue with IV fluids Continue Flomax Check urine cultures Thank you for the consultation. We will continue to follow the patient with you during his hospitalization.
[2022-11-11] MEDS: POTASSIUM CHLORIDE 10 MEQ in WATER FOR INJECTION 1 100ML.BAG IVPB SCH ×9 (12:37→23:06)
[2022-11-11 12:51] LABS: Hepatitis A Antibody IgM Nonreactive; Hepatitis B Core IgM Nonreactive; Hepatitis B Surface Antigen Nonreactive; Hepatitis C IgG Antibody Nonreactive
[2022-11-11] MEDS: ACETAMINOPHEN TAB 325 MG TAB PO PRN (14:56)
--- NOTE | 2022-11-11 15:02 | P.PN ---
Subjective Progress Note Date: 11/11/22 87-year-old patient, brought in from [facility] [place]. Patient was noted by the nurses to have decreased mental status. 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 Was found to be more lethargic and difficult to arouse at times. EKG was paced rhythm. Initial blood pressure was 73/44. Pulse of 91. Pulse ox of 97%. Repeat blood pressure was 86/40. Patient himself is not able to give any much history. found a significant bruise in the left side of the body especially the flank going over the thigh. Patient is not sure if he hada fall. Patient not a good historian. Can only answer some simple questions. Nonambulatory. Weak in both the shoulders. Pain in the shoulder. Has a Tabares catheter with some blood in there. 11/11. Patient seen and examined. Patient is alert to self and person. Family at the bedside. PHYSICAL EXAMINATION: GENERAL: The patient is alert and oriented x1, not in any acute distress. Well developed, well nourished. HEENT: Pupils are round and equally reacting to light. EOMI. No scleral icterus. No conjunctival pallor. Normocephalic, atraumatic. No pharyngeal erythema. No thyromegaly. CARDIOVASCULAR: S1 and S2 present. No murmurs, rubs, or gallops. PULMONARY: Chest is clear to auscultation, no wheezing or crackles. ABDOMEN: Soft, nontender, nondistended, normoactive bowel sounds. No palpable organomegaly. MUSCULOSKELETAL: No joint swelling or deformity. EXTREMITIES: No cyanosis, clubbing, or pedal edema. NEUROLOGICAL: Gross neurological examination did not reveal any focal deficits. SKIN: Left sided bruising seen over the belly area Assessment and plan Acute metabolic encephalopathy. UTI Monitor vital signs Monitor CBC IV fluids. Continue Rocephin Consulted ID -Coumadin toxicity. 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 Rate controlled. Continue Lopressor 12.5 by mouth daily. Because of significant bruising stop Coumadin -Chronic medical debility -Abnormal renal function. Acute versus chronic. Urine showing 1+ protein. Follow-up in nephrology recommendations -Hypotension. Hold off atenolol. IV fluids -GERD Pepcid -BPH Finasteride 5 mg daily at bedtime. Flomax 0.4 mg daily at bedtime. -Bilateral shoulder very limited range of motion.Bilateral chronic rotator cuff arthropathy. Possible chronic stress fracture left acromion from the ongoing glenohumeral joint instability. 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 . Consult orthopedics. Labs and medication were reviewed.. Continue same treatment. Continue with symptomatic treatment. Resume home medication. Monitor labs and vitals. DVT and GI prophylaxis. Further recommendations as per clinical course of the patient Objective - Vital Signs Vital signs: Vital Signs Temp 98.2 F 11/11/22 08:56 Pulse 74 11/11/22 12:43 Resp 16 11/11/22 12:43 BP 116/53 11/11/22 12:43 Pulse Ox 97 11/11/22 12:43 FiO2 21 11/11/22 09:03 Intake & Output 11/10/22 11/11/22 11/11/22 18:59 06:59 18:59 Intake Total 50 145 Output Total 1000 550 Balance -950 -550 145 Intake: IV 20 Invasive Line 1 20 Oral 50 125 Output: Urine 1000 550 Other: Voiding Method Indwelling Catheter Indwelling Catheter Indwelling Catheter - Labs CBC & Chem 7: 11/11/22 08:49 11/11/22 08:49 Labs: Abnormal Lab Results - Last 24 Hours (Table) 11/11/22 11/11/22 11/11/22 Range/Units 08:49 08:49 08:49 WBC 12.9 H (3.8-10.6) k/uL RBC 3.39 L (4.30-5.90) m/uL Hgb 10.4 L (13.0-17.5) gm/dL Hct 32.5 L (39.0-53.0) % Neutrophils # 12.4 H (1.3-7.7) k/uL Lymphocytes # 0.1 L (1.0-4.8) k/uL PT 16.6 H (9.0-12.0) sec INR 1.7 H (<1.2) Potassium 2.8 L (3.5-5.1) mmol/L Chloride 114 H (98-107) mmol/L Carbon Dioxide 21 L (22-30) mmol/L BUN 33 H (9-20) mg/dL Glucose 148 H (74-99) mg/dL Calcium 7.5 L (8.4-10.2) mg/dL
[2022-11-11] MEDS: NON FORMULARY DRUG (Simvastatin 20 MG Tab) PO SCH (19:50)
--- NOTE | 2022-11-11 20:19 | P.CONS ---
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 patient was sent to the ER 2 days ago for evaluation of patient being more lethargic than normal and there was concern for possible infection patient on presentation to the hospital was lethargic and did not provide any reliable history patient was afebrile during this hospital stay patient was not tachycardic or hypoxic and is currently on room air patient did have a white count of 15.1 with a left shift empirically and has been mildly elevated patient did have a positive influenza RSV and COVID testing was negative patient did have a CT of the brain that was negative for any bleed chest x-ray with chronic changes without acute cardiopulmonary disease patient did have a abdominal bladder ultrasound bilateral extrarenal pelvis no definite hydronephrosis patient also have a CT of abdominal pelvis focal left inguinal region heterogeneous soft tissue and fluid collection possible hematoma mild anasarca bilateral extra renal pelvises moderate bladder wall thickening patient was started on Rocephin today infectious he was consulted for further management of antibiotic therapy, patient himself at the point of evaluation was lethargic she was arousable however did not answer any questions most information has been obtained from with the chart and talking to the nursing staff Past Medical History Past Medical History: Atrial Fibrillation, CVA/TIA, Hyperlipidemia Additional Past Medical History / Comment(s): See Dr Weaver H&P,neuropathy, hx kidney stone History of Any Multi-Drug Resistant Organisms: None Reported Past Surgical History: Appendectomy, Heart Catheterization Past Anesthesia/Blood Transfusion Reactions: No Reported Reaction Smoking Status: Never smoker - Past Family History Mother Family Medical History: Cancer Medications and Allergies Home Medications Medication Instructions Recorded Confirmed Type Aspirin 81 mg PO DAILY@89912/09/13 11/09/22 History Atenolol [Tenormin] 25 mg PO DAILY@89912/09/13 11/09/22 History Finasteride 5 mg PO HS@2100 12/09/13 11/09/22 History Cholecalciferol [Vitamin D3 (25 25 mcg PO DAILY@89911/09/22 11/09/22 History Mcg = 1000 Iu)] EPINEPHrine (Auto Inject) [Epipen] 0.3 mg IM ONCE PRN 11/09/22 11/09/22 History Famotidine [Pepcid] 20 mg PO DAILY@0900 11/09/22 11/09/22 History Olanzapine Reconstituted 2.5 mg IM Q4H PRN 11/09/22 11/09/22 History Simvastatin [Zocor] 20 mg PO HS@209911/09/22 11/09/22 History Tamsulosin [Flomax] 0.4 mg PO HS@209911/09/22 11/09/22 History risperiDONE [RisperDAL] 0.25 mg PO BID@0900,209911/09/22 11/09/22 History Allergies Allergy/AdvReac Type Severity Reaction Status Date / Time acetaminophen [From Vicodin] Allergy Unknown Verified 11/09/22 16:56 atorvastatin [From Lipitor] Allergy Unknown, Verified 11/09/22 16:56 Information from [facility] [place] bee venom protein (honey bee) Allergy Unknown, Verified 11/09/22 16:56 Information from [facility] [place] ezetimibe [From Zetia] Allergy Unknown, Verified 11/09/22 16:56 Information from [facility] [place] hydrocodone bitartrate Allergy Unknown, Verified 11/09/22 16:56 [From Vicodin] Information from [facility] [place] metronidazole [From Flagyl] Allergy Unknown, Verified 11/09/22 16:56 Information from [facility] [place] nitrofurantoin Allergy Unknown, Verified 11/09/22 16:56 [From Macrodantin] Information from [facility] [place] Physical Exam Vitals: Vital Signs Temp Pulse Resp BP Pulse Ox FiO2 11/11/22 15:19 71 16 115/55 97 11/11/22 15:02 101.4 F H 11/11/22 12:43 74 16 116/53 97 11/11/22 09:03 97 21 11/11/22 08:56 98.2 F 100 16 146/77 97 11/11/22 04:00 98.1 F 77 18 131/64 96 11/11/22 00:00 98.1 F 76 18 133/68 96 11/10/22 20:00 97.8 F 83 18 119/66 96 11/10/22 17:06 98.8 F 79 18 106/63 96 Intake and Output 11/11/22 11/11/22 11/11/22 06:59 14:59 22:59 Intake Total 145 Output Total 450 Balance -450 145 Intake: IV 20 Invasive Line 1 20 Oral 125 Output: Urine 450 Other: Voiding Method Indwelling Catheter Results CBC & Chem 7: 11/12/22 07:13 11/12/22 07:13 Labs: Abnormal Lab Results - Last 24 Hours (Table) 11/11/22 11/11/22 11/11/22 Range/Units 08:49 08:49 08:49 WBC 12.9 H (3.8-10.6) k/uL RBC 3.39 L (4.30-5.90) m/uL Hgb 10.4 L (13.0-17.5) gm/dL Hct 32.5 L (39.0-53.0) % Neutrophils # 12.4 H (1.3-7.7) k/uL Lymphocytes # 0.1 L (1.0-4.8) k/uL PT 16.6 H (9.0-12.0) sec INR 1.7 H (<1.2) Potassium 2.8 L (3.5-5.1) mmol/L Chloride 114 H (98-107) mmol/L Carbon Dioxide 21 L (22-30) mmol/L BUN 33 H (9-20) mg/dL Glucose 148 H (74-99) mg/dL Calcium 7.5 L (8.4-10.2) mg/dL Assessment and Plan Plan: 1patient was in the hospital with weakness lethargy which is likely multifactorial in this patient who did have evidence of cystitis bladder wall thickening on the CT also with a positive UA concerning for symptomatic urinary tract infection from what I gram-negative pathogen, patient also have a swelling seen to the groin area on the CT and concern for possible hematoma 2we will obtain blood cultures CRP and a procalcitonin 3continue with Rocephin 1 g daily while waiting for the culture to finalize We will follow on clinical condition and cultures to further adjust medication if needed Thank you for this consultation we will follow the patient along with you Dictation was produced using [employer] Softwareation software. please excuse any grammatical, word or spelling errors. Time with Patient: Greater than 30
[2022-11-11] MEDS: TAMSULOSIN 0.4 MG CAP.ER.24H PO SCH (20:52)
[2022-11-11] MEDS: FINASTERIDE 5 MG TAB PO SCH (20:52)
[2022-11-12] MEDS: POTASSIUM CHLORIDE 10 MEQ in WATER FOR INJECTION 1 100ML.BAG IVPB SCH (00:04)
[2022-11-12 07:33] LABS: Basophils % (A) 0 %; Eosinophils % (A) 0 %; HCT 30.3 % (39.0-53.0); HGB 9.8 gm/dL (13.0-17.5); Hypochromasia Slight; Lymphocytes # (A) 0.3 k/uL (1.0-4.8); Lymphocytes % (A) 3 %; MCH 30.1 pg (25.0-35.0); MCHC 32.2 g/dL (31.0-37.0); MCV 93.5 fL (80.0-100.0); Mean Platelet Volume 10.3; Monocytes # (A) 0.3 k/uL (0-1.0); Monocytes % (A) 3 %; Neutrophils # (A) 9.4 k/uL (1.3-7.7); Neutrophils % (A) 93 %; Platelet Count 121 k/uL (150-450); Poikilocytosis Slight; RBC 3.24 m/uL (4.30-5.90); RDW 14.7 % (11.5-15.5); WBC 10.1 k/uL (3.8-10.6)
[2022-11-12] MEDS: risperiDONE 0.25 MG TAB PO SCH ×2 (08:01→20:17)
[2022-11-12] MEDS: ACETAMINOPHEN TAB 325 MG TAB PO PRN (08:01)
[2022-11-12] MEDS: CHOLECALCIFEROL 25 MCG (1000 IU) TABLET PO SCH (08:01)
[2022-11-12] MEDS: ASPIRIN 81 MG PO SCH (08:01)
[2022-11-12] MEDS: FAMOTIDINE 20 MG TAB PO SCH (08:01)
[2022-11-12 09:21] LABS: Erythrocyte Sedimentation Rate 114 mm/hr (0-15)
[2022-11-12 09:27] LABS: ALT 23 U/L (4-49); AST 35 U/L (17-59); African American GFR (CKD) >90 (>60 ml/min/1.73 sqM); Albumin 1.9 g/dL (3.5-5.0); Alkaline Phosphatase 84 U/L (38-126); Anion Gap 5 mmol/L; Blood Urea Nitrogen 26 mg/dL (9-20); Calcium 7.4 mg/dL (8.4-10.2); Carbon Dioxide 21 mmol/L (22-30); Chloride 116 mmol/L (98-107); Glucose 119 mg/dL (74-99); Non-African American GFR(CKD) 84 (>60 ml/min/1.73 sqM); Potassium 3.7 mmol/L (3.5-5.1); Sodium 142 mmol/L (137-145); Total Protein 4.8 g/dL (6.3-8.2)
[2022-11-12 10:07] LABS: C Reactive Protein 31.2 mg/dL (<1.0)
--- NOTE | 2022-11-12 10:10 | US ---
EXAMINATION TYPE: US lower ext pseudo artery LT DATE OF EXAM: 11/12/2022 COMPARISON: NONE CLINICAL INDICATION: Male, 87 years old with history of left groin hematoma; R/O HEMATOMA EXAM PERFORMED: Grayscale and color Doppler duplex imaging performed of the groin, post cardiac christin ter to assess for pseudoaneurysm. SIDE PERFORMED: LT Color and Waveform Doppler performed to assess for the presence of pseudoaneurysm; Is there ultrasound evidence of a pseudoaneurysm: YES Is there evidence of AV shunting: YES Is there a fluid collection present: NO On the provided images, estimated size of the pseudoaneurysm is 3.9 x 3.0 x 2.0 cm. Narrowneck estima hortencia to measure 4 mm wide. IMPRESSION: Apparent left groin pseudoaneurysm measuring 3.9 x 2.0 x 2.0 cm. Short but narrow neck estimated at 4 mm wide.
[2022-11-12] MEDS: SODIUM CHLORIDE 0.9% 1,000 ML IV SCH (12:00)
--- NOTE | 2022-11-12 12:13 | P.GSCN ---
History of Present Illness Consult date: 11/12/22 Reason for Consult: Left groin hematoma Requesting physician: Lucio Logan History of present illness: This is a 87-year-old male who seems pleasantly confused with a history of dementia and hyperlipidemia who was brought in to the emergency department from the detention stating that patient was more lethargic and confused than normal. Patient is unable to give a history at this time. It was noted that the patient had bruising along the left flank and in his left groin. Nursing reports that they spoke to the patient's and last week he underwent carotid stenting through the left groin done at [facility]. Vascular surgery was consulted for concern of left groin hematoma. There was a CT of abdomen and pelvis without contrast that reported a focal left inguinal region heterogeneous soft tissue fluid collection measuring 6.7 x 3.5 cm possible hematoma. Further Doppler ultrasound evaluation recommended to exclude pseudoaneurysm here. Correlate for any recent catheter procedure here. Mild anasarca and trace pleural effusion. Correlate for third spacing. Small right indirect hernia containing a couple nonobstructed small bowel loops. Bilateral extrarenal pelves. No danyell hydronephrosis. Tabares catheter present. Moderate bladder wall thickening could represent chronic bladder wall hypertrophy or cystitis. Prostatomegaly/BPH at 6.3 cm wide Review of Systems ROS unobtainable: due to mental status Past Medical History Past Medical History: Atrial Fibrillation, CVA/TIA, Hyperlipidemia Additional Past Medical History / Comment(s): See Dr Weaver H&P,neuropathy, hx kidney stone History of Any Multi-Drug Resistant Organisms: None Reported Past Surgical History: Appendectomy, Heart Catheterization Past Anesthesia/Blood Transfusion Reactions: No Reported Reaction Smoking Status: Never smoker - Past Family History Mother Family Medical History: Cancer Medications and Allergies Home Medications Medication Instructions Recorded Confirmed Type Aspirin 81 mg PO DAILY@89912/09/13 11/09/22 History Atenolol [Tenormin] 25 mg PO DAILY@89912/09/13 11/09/22 History Finasteride 5 mg PO HS@2100 12/09/13 11/09/22 History Cholecalciferol [Vitamin D3 (25 25 mcg PO DAILY@89911/09/22 11/09/22 History Mcg = 1000 Iu)] EPINEPHrine (Auto Inject) [Epipen] 0.3 mg IM ONCE PRN 11/09/22 11/09/22 History Famotidine [Pepcid] 20 mg PO DAILY@0900 11/09/22 11/09/22 History Olanzapine Reconstituted 2.5 mg IM Q4H PRN 11/09/22 11/09/22 History Simvastatin [Zocor] 20 mg PO HS@2100 11/09/22 11/09/22 History Tamsulosin [Flomax] 0.4 mg PO HS@209911/09/22 11/09/22 History risperiDONE [RisperDAL] 0.25 mg PO BID@0900,2100 11/09/22 11/09/22 History Allergies Allergy/AdvReac Type Severity Reaction Status Date / Time acetaminophen [From Vicodin] Allergy Unknown Verified 11/09/22 16:56 atorvastatin [From Lipitor] Allergy Unknown, Verified 11/09/22 16:56 Information from [facility] [place] bee venom protein (honey bee) Allergy Unknown, Verified 11/09/22 16:56 Information from [facility] [place] ezetimibe [From Zetia] Allergy Unknown, Verified 11/09/22 16:56 Information from [facility] [place] hydrocodone bitartrate Allergy Unknown, Verified 11/09/22 16:56 [From Vicodin] Information from [facility] [place] metronidazole [From Flagyl] Allergy Unknown, Verified 11/09/22 16:56 Information from [facility] [place] nitrofurantoin Allergy Unknown, Verified 11/09/22 16:56 [From Macrodantin] Information from [facility] [place] Surgical - Exam Vital Signs Temp Pulse Resp BP Pulse Ox 98.3 F 84 28 H 88/54 96 11/09/22 16:11 11/09/22 16:11 11/09/22 16:11 11/09/22 16:11 11/09/22 16:11 General appearance: The patient is lethargic, appears in no acute distress. HET: Head is normocephalic and atraumatic. Neck: Supple. Heart: Regular. Lungs: Equal expansion, normal respiratory effort. Abdomen: Soft, nondistended. Left flank ecchymosis. Extremities: Left groin small palpable hematoma, with surrounding ecchymosis, no bleeding. Neurological: Lethargic, awakes with stimuli. Results - Labs 11/12/22 07:13 07/18/23 07:13 Abnormal Lab Results - Last 24 Hours (Table) 11/11/22 11/11/22 11/11/22 Range/Units 08:49 08:49 08:49 WBC 12.9 H (3.8-10.6) k/uL RBC 3.39 L (4.30-5.90) m/uL Hgb 10.4 L (13.0-17.5) gm/dL Hct 32.5 L (39.0-53.0) % Plt Count (150-450) k/uL Neutrophils # 12.4 H (1.3-7.7) k/uL Lymphocytes # 0.1 L (1.0-4.8) k/uL PT 16.6 H (9.0-12.0) sec INR 1.7 H (<1.2) Potassium 2.8 L (3.5-5.1) mmol/L Chloride 114 H (98-107) mmol/L Carbon Dioxide 21 L (22-30) mmol/L BUN 33 H (9-20) mg/dL Glucose 148 H (74-99) mg/dL Calcium 7.5 L (8.4-10.2) mg/dL 11/12/22 Range/Units 07:13 WBC (3.8-10.6) k/uL RBC 3.24 L (4.30-5.90) m/uL Hgb 9.8 L (13.0-17.5) gm/dL Hct 30.3 L (39.0-53.0) % Plt Count 121 L (150-450) k/uL Neutrophils # 9.4 H (1.3-7.7) k/uL Lymphocytes # 0.3 L (1.0-4.8) k/uL PT (9.0-12.0) sec INR (<1.2) Potassium (3.5-5.1) mmol/L Chloride (98-107) mmol/L Carbon Dioxide (22-30) mmol/L BUN (9-20) mg/dL Glucose (74-99) mg/dL Calcium (8.4-10.2) mg/dL Diabetes panel 11/11/22 Range/Units 08:49 Sodium 142 (137-145) mmol/L Potassium 2.8 L (3.5-5.1) mmol/L Chloride 114 H (98-107) mmol/L Carbon Dioxide 21 L (22-30) mmol/L BUN 33 H (9-20) mg/dL Creatinine 0.74 (0.66-1.25) mg/dL Glucose 148 H (74-99) mg/dL Calcium 7.5 L (8.4-10.2) mg/dL Calcium panel 11/11/22 Range/Units 08:49 Calcium 7.5 L (8.4-10.2) mg/dL Pituitary panel 11/11/22 Range/Units 08:49 Sodium 142 (137-145) mmol/L Potassium 2.8 L (3.5-5.1) mmol/L Chloride 114 H (98-107) mmol/L Carbon Dioxide 21 L (22-30) mmol/L BUN 33 H (9-20) mg/dL Creatinine 0.74 (0.66-1.25) mg/dL Glucose 148 H (74-99) mg/dL Calcium 7.5 L (8.4-10.2) mg/dL Adrenal panel 11/11/22 Range/Units 08:49 Sodium 142 (137-145) mmol/L Potassium 2.8 L (3.5-5.1) mmol/L Chloride 114 H (98-107) mmol/L Carbon Dioxide 21 L (22-30) mmol/L BUN 33 H (9-20) mg/dL Creatinine 0.74 (0.66-1.25) mg/dL Glucose 148 H (74-99) mg/dL Calcium 7.5 L (8.4-10.2) mg/dL Assessment and Plan Assessment: 1. Left groin pseudoaneurysm 2. Recent carotid stenting reportedly done last week at [facility] 3. Altered mental status changes 4. Coumadin toxicity 5. Urinary tract infection Plan: 1. Left lower extremity ultrasound ordered and reviewed for evaluation of pseudoaneurysm 2. Consult to interventional radiology for pseudoaneurysm compression, thrombin injection 3. Hold anticoagulation 4. Repeat daily CBC 5. Further recommendations forthcoming Thank you for this consultation, we will continue to follow. The impression and plan of care has been dictated as directed. I performed a history and examination of this patient, discussed the same with the dictator. I agree with the dictator's note ,documented as a scribe. Any additional findings or plans will be noted.
--- NOTE | 2022-11-12 12:53 | P.PN ---
Subjective Patient is seen for follow-up for acute kidney injury. Started on IV fluids and Tabares catheter was placed after admission. Serum creatinine has decreased to 0.7 mg/dL. It appears that patient did have urine retention. Patient is sleeping but arousable. No significant complaints today. UA shows significant pyuria Objective - Vital Signs Vital signs: Vital Signs Temp 98.5 F 11/12/22 11:24 Pulse 112 H 11/12/22 11:49 Resp 18 11/12/22 11:49 BP 116/75 11/12/22 11:49 Pulse Ox 96 11/12/22 11:49 FiO2 21 11/12/22 07:49 Intake & Output 11/11/22 11/12/22 11/12/22 18:59 06:59 18:59 Intake Total 145 10 Output Total 300 475 400 Balance -155 465 -400 Intake: IV 20 10 Invasive Line 1 20 10 Oral 125 Output: Urine 300 475 400 Other: Voiding Method Indwelling Catheter Indwelling Catheter Indwelling Catheter - Exam Patient is awake, comfortable, no acute distress Examination of the heart S1 and S2 Examination the lungs decreased breath sounds at the bases Abdomen is soft mild tenderness noted Examination lower extremity shows no significant edema PICK UP ATTENDANT exam shows patient does not communicate much. He is able to move his upper extremities. - Labs CBC & Chem 7: 11/12/22 07:13 11/12/22 07:13 Labs: Abnormal Lab Results - Last 24 Hours (Table) 11/12/22 11/12/22 Range/Units 07:13 07:13 RBC 3.24 L (4.30-5.90) m/uL Hgb 9.8 L (13.0-17.5) gm/dL Hct 30.3 L (39.0-53.0) % Plt Count 121 L (150-450) k/uL Neutrophils # 9.4 H (1.3-7.7) k/uL Lymphocytes # 0.3 L (1.0-4.8) k/uL ESR 114 H (0-15) mm/hr Chloride 116 H (98-107) mmol/L Carbon Dioxide 21 L (22-30) mmol/L BUN 26 H (9-20) mg/dL Glucose 119 H (74-99) mg/dL Calcium 7.4 L (8.4-10.2) mg/dL Total Bilirubin 4.0 H (0.2-1.3) mg/dL C-Reactive Protein 31.2 H (<1.0) mg/dL Total Protein 4.8 L (6.3-8.2) g/dL Albumin 1.9 L (3.5-5.0) g/dL Assessment and Plan Assessment: 1. Acute kidney injury ATN secondary to low blood pressure as well as element of underlying urine retention. Currently with Tabares catheter and maintained on IV fluids with improved blood pressure. 2. Mental status changes secondary to volume depletion, metabolic encephalopathy. Rule out underlying infection Patient has history of underlying dementia and previous history of CVA 3. Coumadin related coagulopathy 4. Chronic persistent A. fib 5. History of BPH 6. Hypokalemia secondary to decreased intake 7. Pyuria rule out underlying UTI Plan: Continue with Tabares catheter Continue with IV fluids Continue Flomax Check urine cultures
[2022-11-12] MEDS ORDERED: THROMBIN (BOVINE) 5,000 UNIT VIAL TOPICAL STA (13:16)
--- NOTE | 2022-11-12 14:05 | P.PN ---
Subjective Progress Note Date: 11/12/22 87-year-old patient, brought in from [facility] in the [place]. Patient was noted by the nurses to have decreased mental status. 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 Was found to be more lethargic and difficult to arouse at times. EKG was paced rhythm. Initial blood pressure was 73/44. Pulse of 91. Pulse ox of 97%. Repeat blood pressure was 86/40. Patient himself is not able to give any much history. found a significant bruise in the left side of the body especially the flank going over the thigh. Patient is not sure if he hada fall. Patient not a good historian. Can only answer some simple questions. Nonambulatory. Weak in both the shoulders. Pain in the shoulder. Has a Tabares catheter with some blood in there. 11/11. Patient seen and examined. Patient is alert to self and person. Family at the bedside. 11/12. Patient seen and examined. Hemoglobin this morning is 9.8, sodium 142, potassium 3.7, BUN 5, crit 26 PHYSICAL EXAMINATION: GENERAL: The patient is alert and oriented x1, not in any acute distress. Well developed, well nourished. HEENT: Pupils are round and equally reacting to light. EOMI. No scleral icterus. No conjunctival pallor. Normocephalic, atraumatic. No pharyngeal erythema. No thyromegaly. CARDIOVASCULAR: S1 and S2 present. No murmurs, rubs, or gallops. PULMONARY: Chest is clear to auscultation, no wheezing or crackles. ABDOMEN: Soft, nontender, nondistended, normoactive bowel sounds. No palpable organomegaly. MUSCULOSKELETAL: No joint swelling or deformity. EXTREMITIES: No cyanosis, clubbing, or pedal edema. NEUROLOGICAL: Gross neurological examination did not reveal any focal deficits. SKIN: Left sided bruising seen over the belly area Assessment and plan Acute metabolic encephalopathy. UTI Monitor vital signs Monitor CBC IV fluids. Continue Rocephin Follow-up in ID recommendations -Coumadin toxicity. 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 Rate controlled. Continue Lopressor 12.5 by mouth daily. Because of significant bruising and hematoma stop Coumadin -Chronic medical debility Acute kidney injury Strict I's and O's, daily weights Continue Tabares Continue IV fluids Follow-up in nephrology recommendations -Hypotension. Hold off atenolol. IV fluids -GERD Pepcid -BPH Finasteride 5 mg daily at bedtime. Flomax 0.4 mg daily at bedtime. -Bilateral shoulder very limited range of motion.Bilateral chronic rotator cuff arthropathy. Possible chronic stress fracture left acromion from the ongoing glenohumeral joint instability. 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 Orthopedic evaluated, no need for any surgical intervention Labs and medication were reviewed.. Continue same treatment. Continue with symptomatic treatment. Resume home medication. Monitor labs and vitals. DVT and GI prophylaxis. Further recommendations as per clinical course of the patient Objective - Vital Signs Vital signs: Vital Signs Temp 100.2 F H 11/12/22 10:10 Pulse 115 H 11/12/22 07:58 Resp 16 11/12/22 07:58 BP 115/67 11/12/22 07:58 Pulse Ox 95 11/12/22 07:58 FiO2 21 11/12/22 07:49 Intake & Output 11/11/22 11/12/22 11/12/22 18:59 06:59 18:59 Intake Total 145 10 Output Total 300 475 400 Balance -155 465 -400 Intake: IV 20 10 Invasive Line 1 20 10 Oral 125 Output: Urine 300 475 400 Other: Voiding Method Indwelling Catheter Indwelling Catheter Indwelling Catheter - Labs CBC & Chem 7: 11/12/22 07:13 11/12/22 07:13 Labs: Abnormal Lab Results - Last 24 Hours (Table) 11/12/22 11/12/22 Range/Units 07:13 07:13 RBC 3.24 L (4.30-5.90) m/uL Hgb 9.8 L (13.0-17.5) gm/dL Hct 30.3 L (39.0-53.0) % Plt Count 121 L (150-450) k/uL Neutrophils # 9.4 H (1.3-7.7) k/uL Lymphocytes # 0.3 L (1.0-4.8) k/uL ESR 114 H (0-15) mm/hr Chloride 116 H (98-107) mmol/L Carbon Dioxide 21 L (22-30) mmol/L BUN 26 H (9-20) mg/dL Glucose 119 H (74-99) mg/dL Calcium 7.4 L (8.4-10.2) mg/dL Total Bilirubin 4.0 H (0.2-1.3) mg/dL C-Reactive Protein 31.2 H (<1.0) mg/dL Total Protein 4.8 L (6.3-8.2) g/dL Albumin 1.9 L (3.5-5.0) g/dL
--- NOTE | 2022-11-12 15:48 | US ---
ULTRASOUND GUIDED LEFT GROIN PSEUDOANEURYSM THROMBIN INJECTION: CLINICAL HISTORY: Abnormal ultrasound demonstrating approximately 3 cm left groin pseudoaneurysm FINDINGS: The procedure was explained to the patient and patient's family. The risks, complications, benefits and alternatives were discussed and any questions were answered. Informed consent was obtained. Pat ient was placed supine on the ultrasound table and prepped and draped in the usual sterile fashion. Utilizing a 25 gauge needle, under direct ultrasound guidance access into the left pseudoaneurysm is achieved and there is injection of 100 cc of thrombin with complete thrombosis of the pseudoaneurysm. All pulses were unchanged before, during and postprocedure. Postprocedural imaging demonstrated wide patency of the common femoral artery and vein. Patient was stable throughout the procedure. Pathology is pending. All elements of maximal barrier sterile technique were utilized. IMPRESSION: 1. Successful ultrasound guided left groin thrombin pseudoaneurysm injection with complete thrombosi s post procedure..
--- NOTE | 2022-11-12 15:56 | P.PN ---
Subjective Progress Note Date: 11/12/22 Principal diagnosis: Urinary tract infection patient is a 87-[facility]-old male [facility] resident patient was sent to the ER for evaluation of patient being more lethargic than normal and there was concern for possible infection, patient did have elevated white count ad mission and he did spike a fever positive UA concerning for UTI and also have extensive bruising to the left groin and lower abdominal area being monitored by the vascular team and consult for possible pseudoaneurysm. On today's evaluation that is 11/12/2022, the patient did spike a fever of 101.4F yesterday afternoon and he did have a low-grade fever 100.2 this morning, the patient is currently lethargic though arousable and is breathing comfortably on room air did not provide any history and no vomiting or diarrhea has been noticed Objective - Vital Signs Vital signs: Vital Signs Temp 98.5 F 11/12/22 11:24 Pulse 112 H 11/12/22 11:49 Resp 18 11/12/22 11:49 BP 116/75 11/12/22 11:49 Pulse Ox 96 11/12/22 11:49 FiO2 21 11/12/22 07:49 Intake & Output 11/11/22 11/12/22 11/12/22 18:59 06:59 18:59 Intake Total 145 10 Output Total 300 475 400 Balance -155 -465 -400 Intake: IV 20 10 Invasive Line 1 20 10 Oral 125 Output: Urine 300 475 400 Other: Voiding Method Indwelling Catheter Indwelling Catheter Indwelling Catheter - Exam GENERAL DESCRIPTION: An elderly male lying in bed in no distress RESPIRATORY SYSTEM: Unlabored breathing , decreased breath sounds at bases HEART: S1 S2 regular rate and rhythm , ABDOMEN: Soft , no tenderness EXTREMITIES: Extensive bruising to the left lateral thigh and lower abdominal area no redness - Labs CBC & Chem 7: 11/12/22 07:13 11/12/22 07:13 Labs: Abnormal Lab Results - Last 24 Hours (Table) 11/12/22 11/12/22 Range/Units 07:13 07:13 RBC 3.24 L (4.30-5.90) m/uL Hgb 9.8 L (13.0-17.5) gm/dL Hct 30.3 L (39.0-53.0) % Plt Count 121 L (150-450) k/uL Neutrophils # 9.4 H (1.3-7.7) k/uL Lymphocytes # 0.3 L (1.0-4.8) k/uL ESR 114 H (0-15) mm/hr Chloride 116 H (98-107) mmol/L Carbon Dioxide 21 L (22-30) mmol/L BUN 26 H (9-20) mg/dL Glucose 119 H (74-99) mg/dL Calcium 7.4 L (8.4-10.2) mg/dL Total Bilirubin 4.0 H (0.2-1.3) mg/dL C-Reactive Protein 31.2 H (<1.0) mg/dL Total Protein 4.8 L (6.3-8.2) g/dL Albumin 1.9 L (3.5-5.0) g/dL Assessment and Plan (1) Fever Current Visit: Yes Status: Acute Code(s): R50.9 - FEVER, UNSPECIFIED SNOMED Code(s): 278716443 (2) Urinary tract infection Current Visit: Yes Status: Acute Code(s): N39.0 - URINARY TRACT INFECTION, SITE NOT SPECIFIED SNOMED Code(s): 60992666 Plan: 1patient was in the hospital with weakness lethargy which is likely multifactorial in this patient who did have evidence of cystitis bladder wall thickening on the CT also with a positive UA concerning for symptomatic urinary tract infection from enteric gram-negative pathogen, patient also have a swelling seen to the groin area on the CT and concern for possible hematoma, clinically behaving and cellulitis 2we will continue with Rocephin 1 g daily while waiting for the culture to fin eileen, marked the area of the bruise to the left lower abdominal and thigh area and watch his hemoglobin closely Family the bedside and multiple questions concerned were answered Dictation was produced using [employer]and[employer] software. please excuse any grammatical, word or spelling errors. Time with Patient: Less than 30
[2022-11-12] MEDS: NON FORMULARY DRUG (Simvastatin 20 MG Tab) PO SCH (20:11)
[2022-11-12] MEDS: FINASTERIDE 5 MG TAB PO SCH (20:17)
[2022-11-12] MEDS: TAMSULOSIN 0.4 MG CAP.ER.24H PO SCH (20:17)
[2022-11-13] MEDS: SODIUM CHLORIDE 0.9% 1,000 ML IV SCH ×3 (00:33→15:12)
[2022-11-13] MEDS: risperiDONE 0.25 MG TAB PO SCH ×2 (08:19→20:13)
[2022-11-13] MEDS: ASPIRIN 81 MG PO SCH (08:19)
[2022-11-13] MEDS: FAMOTIDINE 20 MG TAB PO SCH (08:19)
[2022-11-13] MEDS: CHOLECALCIFEROL 25 MCG (1000 IU) TABLET PO SCH (08:19)
--- NOTE | 2022-11-13 10:26 | P.CRDCN ---
History of Present Illness Consult date: 11/13/22 Consult reason: atrial fibrillation History of present illness: History of present illness: This is an 87-year-old male patient of Dr. Butler with past medical history of permanent atrial fibrillation, permanent pacemaker, hyperlipidemia, coronary artery disease. Patient underwent recent left carotid stent at [facility] was discharged to [facility] subsequently sent to [facility] due to mental status changes. Patient was brought into the hospital due to mental status changes and lethargy was diagnosed with acute metabolic encephalopathy and urinary tract infection as well as he presented with acute kidney injury, Coumadin toxicity with an initial INR 4.7. We have been asked to evaluate the patient for atrial fibrillation. Patient has been off Coumadin since arrival and INR today is at 1.7. Patient remains in atrial fibrillation with rate controlled in the 80s to low 100. Patient denies having any chest pain, shortness of breath, palpitations. Patient is somewhat confused. Patient was also found to have a pseudoaneurysm in the left groin is status post ultrasound-guided injection of thrombin with complete thrombosis. EKG atrial fibrillation with ventricular rate of 85 Chest x-ray: Chronic changes without acute cardiopulmonary process. CAT scan of the abdomen and pelvis revealed left inguinal region soft tissue collection possible hematoma. Mild anasarca and trace pleural effusions. Small right indirect hernia. Bilateral extrarenal pelvises no danyell hydronephrosis. Ultrasound of the left groin revealed left groin pseudoaneurysm measuring 3.9 x 2.0, 2.0. Initial WBC 15.1, now 10.1. Hemoglobin 9.8, platelet count 121. Sodium 142, potassium 3.7, chloride 116, CO2 21, BUN 26 and creatinine 0.71. Blood sugar 119. Troponin 0.037 and 0.0-1. Ammonia level less than 9. C-reactive protein 31.2. Albumin 1.9. Hepatitis panel negative. Blood culture positive for gram- positive cocci in clusters Home cardiac medications: Aspirin 81 mg daily, atenolol 25 mg daily, simvastatin 40 mg at bedtime. Echocardiogram 2018 revealed normal EF, mild MR, mild to moderate AR, mild TR. Wallace catheterization in 2002 revealed minimal coronary artery disease Lexiscan stress test in 2019 revealed normal EF, probably normal study. Review Of Systems: At the time of my evaluation: Constitutional: No fever, no chills. Noted weakness, and fatigue. EENT: No headache. No dizziness. Lungs: No shortness of breath, cough, no sputum production. No wheezing. Cardiovascular: No chest pain, no lower extremity edema. No palpitations. No paroxysmal nocturnal dyspnea. No orthopnea. No lightheadedness or dizziness. No syncopal episodes. Abdominal: No abdominal pain. No nausea, vomiting. No diarrhea. Genitourinary: umanzor Musculoskeletal: No myalgias. reported muscle weaknessIntegumentary: No wounds. No rash. Neurologic: Noted change in mentation. No head injury. No headache. Physical examination: Gen: This is an 87-year-old male patient resting in bed and appears to be comfortable. VS: reviewed. Blood pressure 136/79, heart rate in the 80s to 104. HEENT: Head is atraumatic, normocephalic. Pupils equal, round. Sclerae is anicteric. NECK: Supple. No JVD. . LUNGS: Clear to auscultation. No wheezes or rhonchi. No intercostal retractions. HEART: Irregular rate and rhythm. 2/6 systolic ejection murmur at the base. ABDOMEN: Soft No tenderness. EXTREMITIES: No pedal edema. No calf tenderness. NEUROLOGICAL: Patient is awake, alert, confused. Assessment: Permanent atrial fibrillation Hypercoagulopathy Hypokalemia Metabolic encephalopathy Acute urinary tract infection Right groin pseudoaneurysm status post thrombin injection Acute kidney injury ATN secondary to hypotension Nonobstructive coronary artery disease Permanent pacemaker Hyperlipidemia Plan: Continue patient's home cardiac medications Resume Coumadin if okay with vascular surgery Obtain 2-D echocardiogram and Doppler study to assess cardiac structure and function Obtain records from [facility] regarding left carotid stent Further recommendations to follow based upon clinical course Thank you kindly for this consultation. Nurse practitioner note has been reviewed, I agree with documented findings and plan of care. Patient was seen and examined. Past Medical History Past Medical History: Atrial Fibrillation, CVA/TIA, Hyperlipidemia Additional Past Medical History / Comment(s): See Dr Weaver H&P,neuropathy, hx kidney stone History of Any Multi-Drug Resistant Organisms: None Reported Past Surgical History: Appendectomy, Heart Catheterization Past Anesthesia/Blood Transfusion Reactions: No Reported Reaction Smoking Status: Never smoker - Past Family History Mother Family Medical History: Cancer Medications and Allergies Home Medications Medication Instructions Recorded Confirmed Type Aspirin 81 mg PO DAILY@0900 12/09/13 11/09/22 History Atenolol [Tenormin] 25 mg PO DAILY@0900 12/09/13 11/09/22 History Finasteride 5 mg PO HS@2100 12/09/13 11/09/22 History Cholecalciferol [Vitamin D3 (25 25 mcg PO DAILY@0900 11/09/22 11/09/22 History Mcg = 1000 Iu)] EPINEPHrine (Auto Inject) [Epipen] 0.3 mg IM ONCE PRN 11/09/22 11/09/22 History Famotidine [Pepcid] 20 mg PO DAILY@0900 11/09/22 11/09/22 History Olanzapine Reconstituted 2.5 mg IM Q4H PRN 11/09/22 11/09/22 History Simvastatin [Zocor] 20 mg PO HS@209911/09/22 11/09/22 History Tamsulosin [Flomax] 0.4 mg PO HS@209911/09/22 11/09/22 History risperiDONE [RisperDAL] 0.25 mg PO BID@0900,2100 11/09/22 11/09/22 History Allergies Allergy/AdvReac Type Severity Reaction Status Date / Time acetaminophen [From Vicodin] Allergy Unknown Verified 11/09/22 16:56 atorvastatin [From Lipitor] Allergy Unknown, Verified 11/09/22 16:56 Information from [facility] bee venom protein (honey bee) Allergy Unknown, Verified 11/09/22 16:56 Information from [facility] ezetimibe [From Zetia] Allergy Unknown, Verified 11/09/22 16:56 Information from [facility] hydrocodone bitartrate Allergy Unknown, Verified 11/09/22 16:56 [From Vicodin] Information from [facility] metronidazole [From Flagyl] Allergy Unknown, Verified 11/09/22 16:56 Information from [facility] nitrofurantoin Allergy Unknown, Verified 11/09/22 16:56 [From Macrodantin] Information from [facility] Physical Exam Vitals: Vital Signs Temp Pulse Resp BP Pulse Ox 11/13/22 04:00 94 16 136/79 94 L 11/13/22 02:00 84 18 11/13/22 00:00 84 18 166/82 97 11/12/22 20:00 98.1 F 104 H 16 151/80 96 11/12/22 17:17 98.8 F 111 H 18 115/64 96 11/12/22 15:51 102 H 114/56 97 11/12/22 15:37 107 H 16 128/59 96 11/12/22 15:22 104 H 114/58 97 11/12/22 15:07 99 18 121/56 95 11/12/22 11:49 112 H 18 116/75 96 11/12/22 11:24 98.5 F 11/12/22 10:10 100.2 F H Intake and Output 11/12/22 11/13/22 11/13/22 22:59 06:59 14:59 Intake Total 0 Output Total 475 0 Balance -475 0 0 Intake: Oral 0 Output: Urine 475 0 Other: Voiding Method Indwelling Catheter Indwelling Catheter Results 11/12/22 07:13 11/12/22 07:13 Cardiac Enzymes 11/12/22 Range/Units 07:13 AST 35 (17-59) U/L Comprehensive Metabolic Panel 11/12/22 Range/Units 07:13 Sodium 142 (137-145) mmol/L Potassium 3.7 (3.5-5.1) mmol/L Chloride 116 H (98-107) mmol/L Carbon Dioxide 21 L (22-30) mmol/L BUN 26 H (9-20) mg/dL Creatinine 0.71 (0.66-1.25) mg/dL Glucose 119 H (74-99) mg/dL Calcium 7.4 L (8.4-10.2) mg/dL AST 35 (17-59) U/L ALT 23 (4-49) U/L Alkaline Phosphatase 84 (38-126) U/L Total Protein 4.8 L (6.3-8.2) g/dL Albumin 1.9 L (3.5-5.0) g/dL Current Medications Generic Name Dose Route Start Last Admin Trade Name Freq PRN Reason Stop Dose Admin Acetaminophen 650 mg 11/11/22 14:36 11/12/22 08:01 Acetaminophen Tab 325 Mg Tab PO 650 mg Q6HR PRN Administration Fever and/ or Mild Pain Aspirin 81 mg 11/10/22 09:00 11/13/22 08:19 Aspirin 81 Mg PO 81 mg DAILY@0900 NOL[place] Administration Cholecalciferol 25 mcg 11/10/22 09:00 11/13/22 08:19 Cholecalciferol 25 Mcg (1000 Iu) Tablet PO 25 mcg DAILY@0900 N[place] Administration Famotidine 20 mg 11/10/22 09:00 11/13/22 08:19 Famotidine 20 Mg Tab PO 20 mg DAILY@0900 N[place] Administration Finasteride 5 mg 11/09/22 21:00 11/12/22 20:17 Finasteride 5 Mg Tab PO 5 mg HS@2100 N[place] Administration Sodium Chloride 1,000 mls @ 75 mls/hr 11/10/22 16:30 11/13/22 00:33 Saline 0.9% IV Not Given .[id number] N[place] Ceftriaxone Sodium 2 gm/ 50 mls @ 100 mls/hr 11/12/22 21:00 11/12/22 21:57 Sodium Chloride IVPB 100 mls/hr Q24HR@2100 N[place]A Administration Miscellaneous Information 1 each 11/11/22 11:51 Potassium Replacement Protocol 1 Each Misc MISCELLANE DAILY PRN Per Protocol Protocol Non-Formulary Medication 20 mg 11/09/22 21:00 11/12/22 20:11 Simvastatin PO Not Given HS@2100 N[place]A Risperidone 0.25 mg 11/09/22 21:00 11/13/22 08:19 Risperidone 0.25 Mg Tab PO 0.25 mg BID@0900,2100 [place] Administration Tamsulosin HCl 0.4 mg 11/09/22 21:00 11/12/22 20:17 Tamsulosin 0.4 Mg Cap.Er.24h PO 0.4 mg HS@2100 [place] Administration Intake and Output 11/12/22 11/13/22 11/13/22 22:59 06:59 14:59 Intake Total 0 Output Total 475 0 Balance -475 0 0 Intake: Oral 0 Output: Urine 475 0 Other: Voiding Method Indwelling Catheter Indwelling Catheter 11/12/22 07:13 11/12/22 07:13
--- NOTE | 2022-11-13 10:54 | P.PN ---
Subjective Progress Note Date: 11/13/22 Principal diagnosis: Pseudoaneurysm Patient was seen and examined today as follow-up. Yesterday he underwent pseudoaneurysm compression with thrombin with interventional radiology. They reported complete thrombosis post procedure. Patient denies any pain in the left hip or groin. Denies any acute changes through the night. Objective - Vital Signs Vital signs: Vital Signs Temp 98.1 F 11/12/22 20:00 Pulse 94 11/13/22 04:00 Resp 16 11/13/22 04:00 BP 136/79 11/13/22 04:00 Pulse Ox 94 L 11/13/22 04:00 FiO2 21 11/12/22 07:49 Intake & Output 11/12/22 11/13/22 11/13/22 18:59 06:59 18:59 Intake Total 0 Output Total 750 125 Balance -750 -125 0 Intake: Oral 0 Output: Urine 750 125 Other: Voiding Method Indwelling Catheter Indwelling Catheter - Exam General appearance: The patient is alert, oriented, appears in no acute distress. HET: Head is normocephalic and atraumatic. Neck: Supple. Abdomen: Soft, nontender, nondistended. Ecchymosis to left flank. Extremities: Normal skin color and turgor. Left groin with ecchymosis, small hematoma noted. Neurological: No focal deficits. - Labs CBC & Chem 7: 11/12/22 07:13 11/12/22 07:13 Labs: Abnormal Lab Results - Last 24 Hours (Table) 11/12/22 11/12/22 Range/Units 07:13 07:13 ESR 114 H (0-15) mm/hr Chloride 116 H (98-107) mmol/L Carbon Dioxide 21 L (22-30) mmol/L BUN 26 H (9-20) mg/dL Glucose 119 H (74-99) mg/dL Calcium 7.4 L (8.4-10.2) mg/dL Total Bilirubin 4.0 H (0.2-1.3) mg/dL C-Reactive Protein 31.2 H (<1.0) mg/dL Total Protein 4.8 L (6.3-8.2) g/dL Albumin 1.9 L (3.5-5.0) g/dL Microbiology - Last 24 Hours (Table) 11/11/22 20:29 Blood Culture Gram Stain - Preliminary Blood 11/09/22 16:35 Urine Culture - Preliminary Urine,Catheterized Presumptive Staph aureus Group D Enterococcus Assessment and Plan Assessment: 1. Left groin pseudoaneurysm status post thrombin injection with documented complete thrombosis 2. Recent carotid stenting reportedly done last week at [facility] 3. Altered mental status changes 4. Coumadin toxicity 5. Urinary tract infection Plan: 1. May resume anticoagulation 2. No indication for any further vascular surgical intervention Thank you for this consultation, we will sign off at this time. The impression and plan of care has been dictated as directed. Dr. Tabares I performed a history and examination of this patient, discussed the same with the dictator. I agree with the dictator's note ,documented as a scribe. Any additional findings or plans will be noted.
--- NOTE | 2022-11-13 13:06 | P.PN ---
Subjective Progress Note Date: 11/13/22 87-year-old patient, brought in from [facility] in the [place]. Patient was noted by the nurses to have decreased mental status. 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 Was found to be more lethargic and difficult to arouse at times. EKG was paced rhythm. Initial blood pressure was 73/44. Pulse of 91. Pulse ox of 97%. Repeat blood pressure was 86/40. Patient himself is not able to give any much history. found a significant bruise in the left side of the body especially the flank going over the thigh. Patient is not sure if he hada fall. Patient not a good historian. Can only answer some simple questions. Nonambulatory. Weak in both the shoulders. Pain in the shoulder. Has a Tabares catheter with some blood in there. 11/11. Patient seen and examined. Patient is alert to self and person. Family at the bedside. 11/12. Patient seen and examined. Hemoglobin this morning is 9.8, sodium 142, potassium 3.7, BUN 5, crit 26 11/13. Patient seen and examined. Still is confused. Does not look in acute distress PHYSICAL EXAMINATION: GENERAL: The patient is alert and oriented x1, not in any acute distress. Well developed, well nourished. HEENT: Pupils are round and equally reacting to light. EOMI. No scleral icterus. No conjunctival pallor. Normocephalic, atraumatic. No pharyngeal erythema. No thyromegaly. CARDIOVASCULAR: S1 and S2 present. No murmurs, rubs, or gallops. PULMONARY: Chest is clear to auscultation, no wheezing or crackles. ABDOMEN: Soft, nontender, nondistended, normoactive bowel sounds. No palpable organomegaly. MUSCULOSKELETAL: No joint swelling or deformity. EXTREMITIES: No cyanosis, clubbing, or pedal edema. NEUROLOGICAL: Gross neurological examination did not reveal any focal deficits. SKIN: Left sided bruising seen over the belly area Assessment and plan Acute metabolic encephalopathy. UTI Bacteremia Monitor vital signs Monitor CBC IV fluids. Continue Rocephin Follow-up in ID recommendations -Coumadin toxicity. 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 Rate controlled. Continue Lopressor 12.5 twice a day. Because of significant bruising and hematoma stop Coumadin Follow-up on cardiology recommendations -Chronic medical debility Acute kidney injury Strict I's and O's, daily weights Continue Tabares Continue IV fluids Follow-up in nephrology recommendations -Hypotension. Hold off atenolol. IV fluids -GERD Pepcid -BPH Finasteride 5 mg daily at bedtime. Flomax 0.4 mg daily at bedtime. -Bilateral shoulder very limited range of motion.Bilateral chronic rotator cuff arthropathy. Possible chronic stress fracture left acromion from the ongoing glenohumeral joint instability. 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 Orthopedic evaluated, no need for any surgical intervention Labs and medication were reviewed.. Continue same treatment. Continue with symptomatic treatment. Resume home medication. Monitor labs and vitals. DVT and GI prophylaxis. Further recommendations as per clinical course of the patient Objective - Vital Signs Vital signs: Vital Signs Temp 98.3 F 11/13/22 08:00 Pulse 99 11/13/22 08:00 Resp 18 11/13/22 08:00 BP 136/63 11/13/22 08:00 Pulse Ox 96 11/13/22 08:00 FiO2 21 11/12/22 07:49 Intake & Output 11/12/22 11/13/22 11/13/22 18:59 06:59 18:59 Intake Total 0 Output Total 750 125 Balance -750 -125 0 Intake: Oral 0 Output: Urine 750 125 Other: Voiding Method Indwelling Catheter Indwelling Catheter Indwelling Catheter - Labs CBC & Chem 7: 11/12/22 07:13 11/12/22 07:13 Labs: Microbiology - Last 24 Hours (Table) 11/11/22 20:29 Blood Culture Gram Stain - Preliminary Blood 11/09/22 16:35 Urine Culture - Preliminary Urine,Catheterized Presumptive Staph aureus Group D Enterococcus
[2022-11-13 15:08] LABS: INR 1.8 (<1.2); Prothrombin Time 17.6 sec (9.0-12.0)
[2022-11-13] MEDS ORDERED: WARFARIN 2.5 MG TAB PO ONE (18:30)
[2022-11-13] MEDS: FINASTERIDE 5 MG TAB PO SCH (20:13)
[2022-11-13] MEDS: METOPROLOL TARTRATE 12.5 MG TAB PO SCH (20:13)
[2022-11-13] MEDS: TAMSULOSIN 0.4 MG CAP.ER.24H PO SCH (20:13)
[2022-11-13] MEDS: NON FORMULARY DRUG (Simvastatin 20 MG Tab) PO SCH (20:14)
[2022-11-14] MEDS: CHOLECALCIFEROL 25 MCG (1000 IU) TABLET PO SCH (08:55)
[2022-11-14] MEDS: ASPIRIN 81 MG PO SCH (08:55)
[2022-11-14] MEDS: risperiDONE 0.25 MG TAB PO SCH ×2 (08:55→21:37)
[2022-11-14] MEDS: METOPROLOL TARTRATE 12.5 MG TAB PO SCH ×2 (08:55→20:01)
[2022-11-14] MEDS: FAMOTIDINE 20 MG TAB PO SCH (08:55)
[2022-11-14 09:11] LABS: Basophils % (A) 0 %; Eosinophils % (A) 0 %; HCT 33.1 % (39.0-53.0); HGB 10.4 gm/dL (13.0-17.5); Hypochromasia Moderate; Lymphocytes # (A) 0.5 k/uL (1.0-4.8); Lymphocytes % (A) 6 %; MCHC 31.5 g/dL (31.0-37.0); MCV 95.2 fL (80.0-100.0); Mean Platelet Volume 9.9; Monocytes # (A) 0.2 k/uL (0-1.0); Monocytes % (A) 3 %; Neutrophils # (A) 7.2 k/uL (1.3-7.7); Neutrophils % (A) 90 %; Platelet Count 139 k/uL (150-450); Poikilocytosis Slight; RBC 3.47 m/uL (4.30-5.90); RDW 15.1 % (11.5-15.5)
[2022-11-14 09:23] LABS: Prothrombin Time 19.6 sec (9.0-12.0)
[2022-11-14 09:34] LABS: ALT 21 U/L (4-49); AST 46 U/L (17-59); African American GFR (CKD) >90 (>60 ml/min/1.73 sqM); Albumin 1.9 g/dL (3.5-5.0); Alkaline Phosphatase 86 U/L (38-126); Anion Gap 8 mmol/L; Blood Urea Nitrogen 24 mg/dL (9-20); Calcium 7.2 mg/dL (8.4-10.2); Carbon Dioxide 19 mmol/L (22-30); Chloride 122 mmol/L (98-107); Glucose 112 mg/dL (74-99); Non-African American GFR(CKD) >90 (>60 ml/min/1.73 sqM); Potassium 2.8 mmol/L (3.5-5.1); Sodium 149 mmol/L (137-145); Total Bilirubin 2.2 mg/dL (0.2-1.3); Total Protein 4.7 g/dL (6.3-8.2)
[2022-11-14] MEDS ORDERED: Potassium Replacement Protocol 1 EACH MISC MISCELLANE PRN (09:55)
--- NOTE | 2022-11-14 10:00 | US ---
EXAMINATION TYPE: US lower ext pseudo artery LT DATE OF EXAM: 11/13/2022 COMPARISON: NONE CLINICAL INDICATION: Male, 87 years old with history of post thrombin injection; thrombin injection y EXAM PERFORMED: Grayscale and color Doppler duplex imaging performed of the groin, post cardiac christin ter to assess for pseudoaneurysm. SIDE PERFORMED: left Is there ultrasound evidence of a pseudoaneurysm: Appears to be thrombosed. IMPRESSION: Thrombosed pseudoaneurysm.
--- NOTE | 2022-11-14 12:30 | P.PN ---
Subjective Patient is seen for follow-up for acute kidney injury. Started on IV fluids and Tabares catheter was placed after admission. Noted to have significant urine retention Gulshan at Serum creatinine has decreased to 0.6 mg/dL. sodium increased to 149. P otassium was 2.8 Patient is awake but confused. Objective - Vital Signs Vital signs: Vital Signs Temp 98.1 F 11/14/22 08:55 Pulse 102 H 11/14/22 08:55 Resp 18 11/14/22 08:55 BP 119/91 11/14/22 08:55 Pulse Ox 97 11/14/22 08:55 FiO2 21 11/12/22 07:49 Intake & Output 11/13/22 11/14/22 11/14/22 18:59 06:59 18:59 Intake Total 270 Output Total 575 450 200 Balance -305 -450 -200 Intake: Oral 270 Output: Urine 575 450 200 Other: Voiding Method Indwelling Catheter Indwelling Catheter Indwelling Catheter - Exam Patient is awake, comfortable, no acute distress Examination of the heart S1 and S2 Examination the lungs decreased breath sounds at the bases Abdomen is soft mild tenderness noted Examination lower extremity shows no significant edema [employer] exam shows patient does not communicate much. He is able to move his upper extremities. - Labs CBC & Chem 7: 11/14/22 08:14 11/14/22 08:14 Labs: Abnormal Lab Results - Last 24 Hours (Table) 11/13/22 11/14/22 11/14/22 Range/Units 14:25 08:14 08:14 RBC 3.47 L (4.30-5.90) m/uL Hgb 10.4 L (13.0-17.5) gm/dL Hct 33.1 L (39.0-53.0) % Plt Count 139 L (150-450) k/uL Lymphocytes # 0.5 L (1.0-4.8) k/uL PT 17.6 H (9.0-12.0) sec INR 1.8 H (<1.2) Sodium 149 H (137-145) mmol/L Potassium 2.8 L (3.5-5.1) mmol/L Chloride 122 H (98-107) mmol/L Carbon Dioxide 19 L (22-30) mmol/L BUN 24 H (9-20) mg/dL Creatinine 0.60 L (0.66-1.25) mg/dL Glucose 112 H (74-99) mg/dL Calcium 7.2 L (8.4-10.2) mg/dL Total Bilirubin 2.2 H (0.2-1.3) mg/dL Total Protein 4.7 L (6.3-8.2) g/dL Albumin 1.9 L (3.5-5.0) g/dL 11/14/22 Range/Units 08:14 RBC (4.30-5.90) m/uL Hgb (13.0-17.5) gm/dL Hct (39.0-53.0) % Plt Count (150-450) k/uL Lymphocytes # (1.0-4.8) k/uL PT 19.6 H (9.0-12.0) sec INR 2.0 H (<1.2) Sodium (137-145) mmol/L Potassium (3.5-5.1) mmol/L Chloride (98-107) mmol/L Carbon Dioxide (22-30) mmol/L BUN (9-20) mg/dL Creatinine (0.66-1.25) mg/dL Glucose (74-99) mg/dL Calcium (8.4-10.2) mg/dL Total Bilirubin (0.2-1.3) mg/dL Total Protein (6.3-8.2) g/dL Albumin (3.5-5.0) g/dL Microbiology - Last 24 Hours (Table) 11/09/22 16:35 Urine Culture - Final Urine,Catheterized Staphylococcus aureus Enterococcus faecalis 11/11/22 20:29 Blood Culture Gram Stain - Preliminary Blood Blood Culture - Preliminary Presumptive Staph aureus Assessment and Plan Assessment: 1. Acute kidney injury ATN secondary to low blood pressure as well as urine retention. Currently with Tabares catheter and maintained on IV fluids with improved blood pressure. 2. Mental status changes secondary to volume depletion, metabolic encephalopathy. Rule out underlying infection. Patient has history of underlying dementia and previous history of CVA 3. Coumadin related coagulopathy 4. Chronic persistent A. fib 5. History of BPH 6. Hypokalemia secondary to decreased intake 7. UTI with urine culture growing staph aureus and Enterococcus faecalis. Being followed by ID. 8. Staph aureus bacteremia Plan: Continue with Tabares catheter Change IV fluids to D5W Continue Flomax Continue antibiotics as per ID Repeat labs in a.m.
[2022-11-14] MEDS: POTASSIUM CHLORIDE ER 20 MEQ TAB.ER PO SCH ×3 (12:42→15:46)
[2022-11-14] MEDS: DEXTROSE 5% IN WATER 1,000 ML IV SCH (12:43)
[2022-11-14 13:08] VITALS: BMI 28.8
--- NOTE | 2022-11-14 13:23 | P.PN ---
Subjective Progress Note Date: 11/14/22 87-year-old patient, brought in from [facility] in the [place]/[facility]. Patient was noted by the nurses to have decreased mental status. 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 Was found to be more lethargic and difficult to arouse at times. EKG was paced rhythm. Initial blood pressure was 73/44. Pulse of 91. Pulse ox of 97%. Repeat blood pressure was 86/40. Patient himself is not able to give any much history. found a significant bruise in the left side of the body especially the flank going over the thigh. Patient is not sure if he hada fall. Patient not a good historian. Can only answer some simple questions. Nonambulatory. Weak in both the shoulders. Pain in the shoulder. Has a Tabares catheter with some blood in there. 11/11. Patient seen and examined. Patient is alert to self and person. Family at the bedside. 11/12. Patient seen and examined. Hemoglobin this morning is 9.8, sodium 142, potassium 3.7, BUN 5, crit 26 11/13. Patient seen and examined. Still is confused. Does not look in acute distress 11/14. Patient seen and examined. Patient is alert, sodium level this morning is 149, potassium is 2.8. Patient resumed back on Coumadin per vascular surgery PHYSICAL EXAMINATION: GENERAL: The patient is alert and oriented x1, not in any acute distress. Well developed, well nourished. HEENT: Pupils are round and equally reacting to light. EOMI. No scleral icterus. No conjunctival pallor. Normocephalic, atraumatic. No pharyngeal erythema. No thyromegaly. CARDIOVASCULAR: S1 and S2 present. No murmurs, rubs, or gallops. PULMONARY: Chest is clear to auscultation, no wheezing or crackles. ABDOMEN: Soft, nontender, nondistended, normoactive bowel sounds. No palpable organomegaly. MUSCULOSKELETAL: No joint swelling or deformity. EXTREMITIES: No cyanosis, clubbing, or pedal edema. NEUROLOGICAL: Gross neurological examination did not reveal any focal deficits. SKIN: Left sided bruising seen over the belly area Assessment and plan Acute metabolic encephalopathy. UTI Bacteremia Monitor vital signs Monitor CBC IV fluids. Switch to D5 W Continue IV cefazolin Follow-up in ID recommendations -Coumadin toxicity. 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 Rate controlled. Continue Lopressor 12.5 twice a day. Continue pharmacy dose Coumadin Follow-up on cardiology recommendations -Chronic medical debility Acute kidney injury Strict I's and O's, daily weights Continue Tabares Continue IV fluids Follow-up in nephrology recommendations -Hypotension. Resolved -GERD Pepcid -BPH Finasteride 5 mg daily at bedtime. Flomax 0.4 mg daily at bedtime. -Bilateral shoulder very limited range of motion.Bilateral chronic rotator cuff arthropathy. Possible chronic stress fracture left acromion from the ongoing gl enohumeral joint instability. 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 Orthopedic evaluated, no need for any surgical intervention Labs and medication were reviewed.. Continue same treatment. Continue with symptomatic treatment. Resume home medication. Monitor labs and vitals. DVT and GI prophylaxis. Further recommendations as per clinical course of the patient Objective - Vital Signs Vital signs: Vital Signs Temp 98.3 F 11/14/22 12:40 Pulse 103 H 11/14/22 12:40 Resp 16 11/14/22 12:40 BP 120/74 11/14/22 12:40 Pulse Ox 98 11/14/22 12:40 FiO2 21 11/12/22 07:49 Intake & Output 11/13/22 11/14/22 11/14/22 18:59 06:59 18:59 Intake Total 270 Output Total 575 450 200 Balance -305 -450 -200 Weight 86.183 kg Intake: Oral 270 Output: Urine 575 450 200 Other: Voiding Method Indwelling Catheter Indwelling Catheter Indwelling Catheter - Labs CBC & Chem 7: 11/14/22 08:14 11/14/22 08:14 Labs: Abnormal Lab Results - Last 24 Hours (Table) 11/13/22 11/14/22 11/14/22 Range/Units 14:25 08:14 08:14 RBC 3.47 L (4.30-5.90) m/uL Hgb 10.4 L (13.0-17.5) gm/dL Hct 33.1 L (39.0-53.0) % Plt Count 139 L (150-450) k/uL Lymphocytes # 0.5 L (1.0-4.8) k/uL PT 17.6 H (9.0-12.0) sec INR 1.8 H (<1.2) Sodium 149 H (137-145) mmol/L Potassium 2.8 L (3.5-5.1) mmol/L Chloride 122 H (98-107) mmol/L Carbon Dioxide 19 L (22-30) mmol/L BUN 24 H (9-20) mg/dL Creatinine 0.60 L (0.66-1.25) mg/dL Glucose 112 H (74-99) mg/dL Calcium 7.2 L (8.4-10.2) mg/dL Total Bilirubin 2.2 H (0.2-1.3) mg/dL Total Protein 4.7 L (6.3-8.2) g/dL Albumin 1.9 L (3.5-5.0) g/dL 11/14/22 Range/Units 08:14 RBC (4.30-5.90) m/uL Hgb (13.0-17.5) gm/dL Hct (39.0-53.0) % Plt Count (150-450) k/uL Lymphocytes # (1.0-4.8) k/uL PT 19.6 H (9.0-12.0) sec INR 2.0 H (<1.2) Sodium (137-145) mmol/L Potassium (3.5-5.1) mmol/L Chloride (98-107) mmol/L Carbon Dioxide (22-30) mmol/L BUN (9-20) mg/dL Creatinine (0.66-1.25) mg/dL Glucose (74-99) mg/dL Calcium (8.4-10.2) mg/dL Total Bilirubin (0.2-1.3) mg/dL Total Protein (6.3-8.2) g/dL Albumin (3.5-5.0) g/dL Microbiology - Last 24 Hours (Table) 11/09/22 16:35 Urine Culture - Final Urine,Catheterized Staphylococcus aureus Enterococcus faecalis 11/11/22 20:29 Blood Culture Gram Stain - Preliminary Blood Blood Culture - Preliminary Presumptive Staph aureus
--- NOTE | 2022-11-14 14:49 | P.PN ---
Subjective Progress Note Date: 11/14/22 History of present illness: This is an 87-year-old male patient of Dr. Butler with past medical history of permanent atrial fibrillation, permanent pacemaker, hyperlipidemia, coronary artery disease. Patient underwent recent left carotid stent at [facility] was discharged to [facility] subsequently sent to [facility] due to mental status changes. Patient was brought into the hospital due to mental status changes and lethargy was diagnosed with acute metabolic encephalopathy and urinary tract infection as well as he presented with acute kidney injury, Coumadin toxicity with an initial INR 4.7. We have been asked to evaluate the patient for atrial fibrillation. Patient has been off Coumadin since arrival and INR today is at 1.7. Patient remains in atrial fibrillation with rate controlled in the 80s to low 100. Patient denies having any chest pain, shortness of breath, palpitations. Patient is somewhat confused. Patient was also found to have a pseudoaneurysm in the left groin is status post ultrasound-guided injection of thrombin with complete thrombosis. EKG atrial fibrillation with ventricular rate of 85 Chest x-ray: Chronic changes without acute cardiopulmonary process. CAT scan of the abdomen and pelvis revealed left inguinal region soft tissue collection possible hematoma. Mild anasarca and trace pleural effusions. Small right indirect hernia. Bilateral extrarenal pelvises no danyell hydronephrosis. Ultrasound of the left groin revealed left groin pseudoaneurysm measuring 3.9 x 2.0, 2.0. Initial WBC 15.1, now 10.1. Hemoglobin 9.8, platelet count 121. Sodium 142, potassium 3.7, chloride 116, CO2 21, BUN 26 and creatinine 0.71. Blood sugar 119. Troponin 0.037 and 0.0-1. Ammonia level less than 9. C-reactive protein 31.2. Albumin 1.9. Hepatitis panel negative. Blood culture positive for gram- positive cocci in clusters Home cardiac medications: Aspirin 81 mg daily, atenolol 25 mg daily, simvastatin 40 mg at bedtime. Echocardiogram 2018 revealed normal EF, mild MR, mild to moderate AR, mild TR. Wallace catheterization in 2001 revealed minimal coronary artery disease Lexiscan stress test in 2019 revealed normal EF, probably normal study. 11/14 Patient is seen today in follow-up. He remains in atrial fibrillation. Echocardiogram is pending. We did resume Coumadin yesterday as this was cleared by vascular surgery. INR is 2. Heart rate is 103, blood pressure 120/74, pulse ox 90% on room air. Repeat blood work reveals potassium of 2.8, BUN 24 creatinine 0.6. Potassium replacement has been ordered. Physical examination: Gen: This is an 87-year-old male patient resting in bed and appears to be comfortable. VS: reviewed. Blood pressure 136/79, heart rate in the 80s to 104. HEENT: Head is atraumatic, normocephalic. Pupils equal, round. Sclerae is anicteric. NECK: Supple. No JVD. . LUNGS: Clear to auscultation. No wheezes or rhonchi. No intercostal retractions. HEART: Irregular rate and rhythm. 2/6 systolic ejection murmur at the base. ABDOMEN: Soft No tenderness. EXTREMITIES: No pedal edema. No calf tenderness. NEUROLOGICAL: Patient is awake, alert, confused. Assessment: Permanent atrial fibrillation Hypercoagulopathy Hypokalemia Metabolic encephalopathy Acute urinary tract infection Right groin pseudoaneurysm status post thrombin injection Acute kidney injury ATN secondary to hypotension Nonobstructive coronary artery disease Permanent pacemaker Hyperlipidemia Plan: Continue patient's home cardiac medications Continue Coumadin Obtain 2-D echocardiogram and Doppler study to assess cardiac structure and function Obtain records from [facility] regarding left carotid stent Further recommendations to follow based upon clinical course Thank you kindly for this consultation. Nurse practitioner note has been reviewed, I agree with documented findings and plan of care. Patient was seen and examined. Objective - Vital Signs Vital signs: Vital Signs Temp 98.3 F 11/14/22 12:40 Pulse 103 H 11/14/22 12:40 Resp 16 11/14/22 12:40 BP 120/74 11/14/22 12:40 Pulse Ox 98 11/14/22 12:40 FiO2 21 11/12/22 07:49 Intake & Output 11/13/22 11/14/22 11/14/22 18:59 06:59 18:59 Intake Total 270 Output Total 575 450 200 Balance -305 -450 -200 Weight 86.183 kg Intake: Oral 270 Output: Urine 575 450 200 Other: Voiding Method Indwelling Catheter Indwelling Catheter Indwelling Catheter - Labs CBC & Chem 7: 11/14/22 08:14 11/14/22 08:14 Labs: Abnormal Lab Results - Last 24 Hours (Table) 11/13/22 11/14/22 11/14/22 Range/Units 14:25 08:14 08:14 RBC 3.47 L (4.30-5.90) m/uL Hgb 10.4 L (13.0-17.5) gm/dL Hct 33.1 L (39.0-53.0) % Plt Count 139 L (150-450) k/uL Lymphocytes # 0.5 L (1.0-4.8) k/uL PT 17.6 H (9.0-12.0) sec INR 1.8 H (<1.2) Sodium 149 H (137-145) mmol/L Potassium 2.8 L (3.5-5.1) mmol/L Chloride 122 H (98-107) mmol/L Carbon Dioxide 19 L (22-30) mmol/L BUN 24 H (9-20) mg/dL Creatinine 0.60 L (0.66-1.25) mg/dL Glucose 112 H (74-99) mg/dL Calcium 7.2 L (8.4-10.2) mg/dL Total Bilirubin 2.2 H (0.2-1.3) mg/dL Total Protein 4.7 L (6.3-8.2) g/dL Albumin 1.9 L (3.5-5.0) g/dL 11/14/22 Range/Units 08:14 RBC (4.30-5.90) m/uL Hgb (13.0-17.5) gm/dL Hct (39.0-53.0) % Plt Count (150-450) k/uL Lymphocytes # (1.0-4.8) k/uL PT 19.6 H (9.0-12.0) sec INR 2.0 H (<1.2) Sodium (137-145) mmol/L Potassium (3.5-5.1) mmol/L Chloride (98-107) mmol/L Carbon Dioxide (22-30) mmol/L BUN (9-20) mg/dL Creatinine (0.66-1.25) mg/dL Glucose (74-99) mg/dL Calcium (8.4-10.2) mg/dL Total Bilirubin (0.2-1.3) mg/dL Total Protein (6.3-8.2) g/dL Albumin (3.5-5.0) g/dL Microbiology - Last 24 Hours (Table) 11/09/22 16:35 Urine Culture - Final Urine,Catheterized Staphylococcus aureus Enterococcus faecalis 11/11/22 20:29 Blood Culture Gram Stain - Preliminary Blood Blood Culture - Preliminary Presumptive Staph aureus
[2022-11-14] MEDS ORDERED: WARFARIN 2.5 MG TAB PO ONE (18:00)
[2022-11-14] MEDS: NON FORMULARY DRUG (Simvastatin 20 MG Tab) PO SCH (19:59)
[2022-11-14] MEDS: FINASTERIDE 5 MG TAB PO SCH (20:01)
[2022-11-14] MEDS: TAMSULOSIN 0.4 MG CAP.ER.24H PO SCH (20:01)
--- NOTE | 2022-11-14 20:36 | P.PN ---
Subjective Progress Note Date: 11/13/22 Principal diagnosis: Urinary tract infection patient is a 87-year-old male [facility] resident patient was sent to the ER for evaluation of patient being more lethargic than normal and there was concern for possible infection, patient did have elevated white count ad mission and he did spike a fever positive UA concerning for UTI and also have extensive bruising to the left groin and lower abdominal area being monitored by the vascular team and consult for possible pseudoaneurysm. On today's evaluation that is 11/13/2022 the patient is afebrile today the patient is breathing comfortably on room air patient remains to be lethargic and not a very good historian no vomiting diarrhea or any other changes reported by the family at the bedside Objective - Vital Signs Vital signs: Vital Signs Temp 98.3 F 11/13/22 08:00 Pulse 99 11/13/22 08:00 Resp 18 11/13/22 08:00 BP 136/63 11/13/22 08:00 Pulse Ox 96 11/13/22 08:00 FiO2 21 11/12/22 07:49 Intake & Output 11/12/22 11/13/22 11/13/22 18:59 06:59 18:59 Intake Total 240 Output Total 750 125 300 Balance -750 -125 -60 Intake: Oral 240 Output: Urine 750 125 300 Other: Voiding Method Indwelling Catheter Indwelling Catheter Indwelling Catheter - Exam GENERAL DESCRIPTION: An elderly male lying in bed in no distress RESPIRATORY SYSTEM: Unlabored breathing , decreased breath sounds at bases HEART: S1 S2 regular rate and rhythm , ABDOMEN: Soft , no tenderness EXTREMITIES: Extensive bruising to the left lateral thigh and lower abdominal area no redness - Labs CBC & Chem 7: 11/14/22 08:14 11/14/22 08:14 Labs: Microbiology - Last 24 Hours (Table) 11/11/22 20:29 Blood Culture Gram Stain - Preliminary Blood Blood Culture - Preliminary Presumptive Staph aureus 11/09/22 16:35 Urine Culture - Preliminary Urine,Catheterized Presumptive Staph aureus Group D Enterococcus Assessment and Plan (1) Fever Current Visit: Yes Status: Acute Code(s): R50.9 - FEVER, UNSPECIFIED SNOMED Code(s): 665897371 (2) Urinary tract infection Current Visit: Yes Status: Acute Code(s): N39.0 - URINARY TRACT INFECTION, SITE NOT SPECIFIED SNOMED Code(s): 84429753 Plan: 1patient was in the hospital with weakness lethargy which is likely multifactorial in this patient who did have evidence of cystitis bladder wall thickening on the CT also with a positive UA concerning for symptomatic urinary tract infection from enteric gram-negative pathogen, patient also have a swell ing seen to the groin area on the CT and concern for possible hematoma, clinically behaving and cellulitis 2Patient did have a positive blood culture with MSSA psoas source possibly urinary we will discontinue Rocephin and start the patient on cefazolin 2 g every 8 hours blood culture repeated to document clearance of his bacteremia Family at the bedside questions were answered Dictation was produced using [employer] dictation software. please excuse any grammatical, word or spelling errors. Time with Patient: Less than 30
--- NOTE | 2022-11-14 20:37 | P.PN ---
Subjective Progress Note Date: 11/14/22 Principal diagnosis: Urinary tract infection patient is a 87-year-old male assisted resident patient was sent to the ER for evaluation of patient being more lethargic than normal and there was concern for possible infection, patient did have elevated white count ad mission and he did spike a fever positive UA concerning for UTI and also have extensive bruising to the left groin and lower abdominal area being monitored by the vascular team and consult for possible pseudoaneurysm. On today's evaluation that is 11/14/2022 patient continues to be afebrile and has a patient is breathing comfortably on room air patient slightly more awake but not a very good historian no vomiting diarrhea or any other changes reported Objective - Vital Signs Vital signs: Vital Signs Temp 98.3 F 11/14/22 12:40 Pulse 106 H 11/14/22 15:50 Resp 18 11/14/22 15:50 BP 118/85 11/14/22 15:50 Pulse Ox 98 11/14/22 15:50 FiO2 21 11/12/22 07:49 Intake & Output 11/14/22 11/14/22 11/15/22 06:59 18:59 06:59 Output Total 450 500 Balance -450 -500 Weight 86.183 kg Output: Urine 450 500 Other: Voiding Method Indwelling Catheter Indwelling Catheter - Exam GENERAL DESCRIPTION: An elderly male lying in bed in no distress RESPIRATORY SYSTEM: Unlabored breathing , decreased breath sounds at bases HEART: S1 S2 regular rate and rhythm , ABDOMEN: Soft , no tenderness EXTREMITIES: Extensive bruising to the left lateral thigh and lower abdominal area no redness - Labs CBC & Chem 7: 11/14/22 08:14 11/14/22 08:14 Labs: Abnormal Lab Results - Last 24 Hours (Table) 11/14/22 11/14/22 11/14/22 Range/Units 08:14 08:14 08:14 RBC 3.47 L (4.30-5.90) m/uL Hgb 10.4 L (13.0-17.5) gm/dL Hct 33.1 L (39.0-53.0) % Plt Count 139 L (150-450) k/uL Lymphocytes # 0.5 L (1.0-4.8) k/uL PT 19.6 H (9.0-12.0) sec INR 2.0 H (<1.2) Sodium 149 H (137-145) mmol/L Potassium 2.8 L (3.5-5.1) mmol/L Chloride 122 H (98-107) mmol/L Carbon Dioxide 19 L (22-30) mmol/L BUN 24 H (9-20) mg/dL Creatinine 0.60 L (0.66-1.25) mg/dL Glucose 112 H (74-99) mg/dL Calcium 7.2 L (8.4-10.2) mg/dL Total Bilirubin 2.2 H (0.2-1.3) mg/dL Total Protein 4.7 L (6.3-8.2) g/dL Albumin 1.9 L (3.5-5.0) g/dL Microbiology - Last 24 Hours (Table) 11/11/22 20:29 Blood Culture Gram Stain - Final Blood Blood Culture - Final Staphylococcus aureus 11/09/22 16:35 Urine Culture - Final Urine,Catheterized Staphylococcus aureus Enterococcus faecalis Assessment and Plan (1) Fever Current Visit: Yes Status: Acute Code(s): R50.9 - FEVER, UNSPECIFIED SNOMED Code(s): 185162845 (2) Urinary tract infection Current Visit: Yes Status: Acute Code(s): N39.0 - URINARY TRACT INFECTION, SITE NOT SPECIFIED SNOMED Code(s): 45851496 (3) Bacteremia due to methicillin susceptible Staphylococcus aureus (MSSA) Current Visit: Yes Status: Acute Code(s): R78.81 - BACTEREMIA; B95.61 - METHICILLIN SUSCEP STAPH INFCT CAUSING DIS CLASSD [id number] SNOMED Code(s): 292745000 Plan: Patient presented to the hospital with weakness noticed to have positive UA now with evidence of MSSA bacteremia possible urinary source patient to continue with cefazolin blood culture repeated to be document clearance of bacteremia CT abdominal pelvis done on admission did not show any hydronephrosis or structural damage to the kidneys Time with Patient: Less than 30
[2022-11-15] MEDS: DEXTROSE 5% IN WATER 1,000 ML IV SCH ×2 (06:26→23:11)
[2022-11-15 07:24] LABS: INR 2.8 (<1.2); Prothrombin Time 27.2 sec (9.0-12.0)
[2022-11-15 07:50] LABS: ALT 24 U/L (4-49); AST 76 U/L (17-59); African American GFR (CKD) >90 (>60 ml/min/1.73 sqM); Albumin 1.8 g/dL (3.5-5.0); Alkaline Phosphatase 89 U/L (38-126); Anion Gap 7 mmol/L; Blood Urea Nitrogen 27 mg/dL (9-20); Calcium 7.4 mg/dL (8.4-10.2); Carbon Dioxide 19 mmol/L (22-30); Chloride 123 mmol/L (98-107); Glucose 161 mg/dL (74-99); Non-African American GFR(CKD) >90 (>60 ml/min/1.73 sqM); Potassium 3.2 mmol/L (3.5-5.1); Sodium 149 mmol/L (137-145)
[2022-11-15 07:56] LABS: Basophils % (A) 0 %; Eosinophils % (A) 0 %; HCT 31.8 % (39.0-53.0); HGB 10.5 gm/dL (13.0-17.5); Hypochromasia Marked; Lymphocytes # (A) 0.6 k/uL (1.0-4.8); Lymphocytes % (A) 7 %; MCV 97.1 fL (80.0-100.0); Mean Platelet Volume 9.9; Monocytes # (A) 0.3 k/uL (0-1.0); Monocytes % (A) 3 %; Neutrophils # (A) 7.3 k/uL (1.3-7.7); Neutrophils % (A) 88 %; Platelet Count 156 k/uL (150-450); Poikilocytosis Slight; RBC 3.27 m/uL (4.30-5.90); RDW 15.2 % (11.5-15.5); WBC 8.3 k/uL (3.8-10.6)
[2022-11-15] MEDS: CHOLECALCIFEROL 25 MCG (1000 IU) TABLET PO SCH (09:25)
[2022-11-15] MEDS: METOPROLOL TARTRATE 12.5 MG TAB PO SCH ×2 (09:26→20:24)
[2022-11-15] MEDS: FAMOTIDINE 20 MG TAB PO SCH (09:26)
[2022-11-15] MEDS: ASPIRIN 81 MG PO SCH (09:26)
[2022-11-15] MEDS: POTASSIUM CHLORIDE ER 20 MEQ TAB.ER PO SCH ×2 (09:26→11:24)
[2022-11-15] MEDS: risperiDONE 0.25 MG TAB PO SCH ×2 (09:26→20:24)
--- NOTE | 2022-11-15 14:39 | P.PN ---
Subjective Progress Note Date: 11/15/22 87-year-old patient, brought in from [facility] in the [place]/[facility]. Patient was noted by the nurses to have decreased mental status. 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 Was found to be more lethargic and difficult to arouse at times. EKG was paced rhythm. Initial blood pressure was 73/44. Pulse of 91. Pulse ox of 97%. Repeat blood pressure was 86/40. Patient himself is not able to give any much history. found a significant bruise in the left side of the body especially the flank going over the thigh. Patient is not sure if he hada fall. Patient not a good historian. Can only answer some simple questions. Nonambulatory. Weak in both the shoulders. Pain in the shoulder. Has a Tabares catheter with some blood in there. 11/11. Patient seen and examined. Patient is alert to self and person. Family at the bedside. 11/12. Patient seen and examined. Hemoglobin this morning is 9.8, sodium 142, potassium 3.7, BUN 5, crit 26 11/13. Patient seen and examined. Still is confused. Does not look in acute distress 11/14. Patient seen and examined. Patient is alert, sodium level this morning is 149, potassium is 2.8. Patient resumed back on Coumadin per vascular surgery 11/15. Patient seen and examined with hemoglobin this morning is 10.5, sodium is 149, potassium is 3.2, BUN is 27, creatinine 0.59,. Patient continues to have poor appetite, discussed with patient's and daughter regarding alternative form of nutrition, PHYSICAL EXAMINATION: GENERAL: The patient is alert and oriented x1, not in any acute distress. Well developed, well nourished. HEENT: Pupils are round and equally reacting to light. EOMI. No scleral icterus. No conjunctival pallor. Normocephalic, atraumatic. No pharyngeal erythema. No thyromegaly. CARDIOVASCULAR: S1 and S2 present. No murmurs, rubs, or gallops. PULMONARY: Chest is clear to auscultation, no wheezing or crackles. ABDOMEN: Soft, nontender, nondistended, normoactive bowel sounds. No palpable organomegaly. MUSCULOSKELETAL: No joint swelling or deformity. EXTREMITIES: 1Plus pitting edema lower extremities bilaterally NEUROLOGICAL: Gross neurological examination did not reveal any focal deficits. SKIN: Left sided bruising seen over the belly area Assessment and plan Acute metabolic encephalopathy. UTI Bacteremia Monitor vital signs Monitor CBC Continue D5 W Continue IV cefazolin Follow-up in ID recommendations -Coumadin toxicity. 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 Rate controlled. Continue Lopressor 12.5 twice a day. Continue pharmacy dose Coumadin Follow-up on cardiology recommendations -Chronic medical debility Acute kidney injury Strict I's and O's, daily weights Continue Tabraes Continue IV fluids Follow-up in nephrology recommendations -Hypotension. Resolved -GERD Pepcid -BPH Finasteride 5 mg daily at bedtime. Flomax 0.4 mg daily at bedtime. -Bilateral shoulder very limited range of motion.Bilateral chronic rotator cuff arthropathy. Possible chronic stress fracture left acromion from the ongoing glenohumeral joint instability. 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 Orthopedic evaluated, no need for any surgical intervention Labs and medication were reviewed.. Continue same treatment. Continue with symptomatic treatment. Resume home medication. Monitor labs and vitals. DVT and GI prophylaxis. Further recommendations as per clinical course of the patient Objective - Vital Signs Vital signs: Vital Signs Temp 98.3 F 11/14/22 12:40 Pulse 94 11/15/22 09:25 Resp 16 11/15/22 09:25 BP 133/65 11/15/22 09:25 Pulse Ox 97 11/15/22 09:25 FiO2 21 11/12/22 07:49 Intake & Output 11/14/22 11/15/22 11/15/22 18:59 06:59 18:59 Output Total 500 875 Balance -500 -875 Weight 86.183 kg Output: Urine 500 875 Other: Voiding Method Indwelling Catheter Indwelling Catheter Indwelling Catheter - Labs CBC & Chem 7: 11/15/22 07:00 11/15/22 07:00 Labs: Abnormal Lab Results - Last 24 Hours (Table) 0711/15/22 11/15/22 Range/Units 07:00 07:00 07:00 RBC 3.27 L (4.30-5.90) m/uL Hgb 10.5 L (13.0-17.5) gm/dL Hct 31.8 L (39.0-53.0) % Lymphocytes # 0.6 L (1.0-4.8) k/uL PT 27.2 H (9.0-12.0) sec INR 2.8 H (<1.2) Sodium 149 H (137-145) mmol/L Potassium 3.2 L (3.5-5.1) mmol/L Chloride 123 H (98-107) mmol/L Carbon Dioxide 19 L (22-30) mmol/L BUN 27 H (9-20) mg/dL Creatinine 0.59 L (0.66-1.25) mg/dL Glucose 161 H (74-99) mg/dL Calcium 7.4 L (8.4-10.2) mg/dL Total Bilirubin 2.0 H (0.2-1.3) mg/dL AST 76 H (17-59) U/L Total Protein 5.0 L (6.3-8.2) g/dL Albumin 1.8 L (3.5-5.0) g/dL Microbiology - Last 24 Hours (Table) 11/11/22 20:29 Blood Culture Gram Stain - Final Blood Blood Culture - Final Staphylococcus aureus
--- NOTE | 2022-11-15 15:49 | P.PN ---
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 On today's evaluation that is 11/15/2022 patient remains to be afebrile and has a patient is breathing comfortably on room air , the patient is more awake and alert today and is being fed by the family denies any chest pain or cough no abdominal pain and no diarrhea has been reported Objective - Vital Signs Vital signs: Vital Signs Temp 98.3 F 11/14/22 12:40 Pulse 101 H 11/15/22 11:24 Resp 16 11/15/22 11:24 BP 115/83 11/15/22 11:24 Pulse Ox 97 11/15/22 11:24 FiO2 21 11/12/22 07:49 Intake & Output 11/14/22 11/15/22 11/15/22 18:59 06:59 18:59 Output Total 500 875 Balance -500 -875 Weight 86.183 kg 86.183 kg Output: Urine 500 875 Other: Voiding Method Indwelling Catheter Indwelling Catheter Indwelling Catheter - Exam GENERAL DESCRIPTION: An elderly male lying in bed in no distress RESPIRATORY SYSTEM: Unlabored breathing , decreased breath sounds at bases HEART: S1 S2 regular rate and rhythm , ABDOMEN: Soft , no tenderness EXTREMITIES: Extensive bruising to the left lateral thigh and lower abdominal area no redness - Labs CBC & Chem 7: 11/15/22 07:00 11/15/22 14:09 Labs: Abnormal Lab Results - Last 24 Hours (Table) 11/15/22 11/15/22 11/15/22 Range/Units 07:00 07:00 07:00 RBC 3.27 L (4.30-5.90) m/uL Hgb 10.5 L (13.0-17.5) gm/dL Hct 31.8 L (39.0-53.0) % Lymphocytes # 0.6 L (1.0-4.8) k/uL PT 27.2 H (9.0-12.0) sec INR 2.8 H (<1.2) Sodium 149 H (137-145) mmol/L Potassium 3.2 L (3.5-5.1) mmol/L Chloride 123 H (98-107) mmol/L Carbon Dioxide 19 L (22-30) mmol/L BUN 27 H (9-20) mg/dL Creatinine 0.59 L (0.66-1.25) mg/dL Glucose 161 H (74-99) mg/dL Calcium 7.4 L (8.4-10.2) mg/dL Total Bilirubin 2.0 H (0.2-1.3) mg/dL AST 76 H (17-59) U/L Total Protein 5.0 L (6.3-8.2) g/dL Albumin 1.8 L (3.5-5.0) g/dL Microbiology - Last 24 Hours (Table) 11/11/22 20:29 Blood Culture Gram Stain - Final Blood Blood Culture - Final Staphylococcus aureus Assessment and Plan (1) Fever Current Visit: Yes Status: Acute Code(s): R50.9 - FEVER, UNSPECIFIED SNOMED Code(s): 217853017 (2) Urinary tract infection Current Visit: Yes Status: Acute Code(s): N39.0 - URINARY TRACT INFECTION, SITE NOT SPECIFIED SNOMED Code(s): 78530425 (3) Bacteremia due to methicillin susceptible Staphylococcus aureus (MSSA) Current Visit: Yes Status: Acute Code(s): R78.81 - BACTEREMIA; B95.61 - METHICILLIN SUSCEP STAPH INFCT CAUSING DIS CLASSD [id number] SNOMED Code(s): 428979905 Plan: Patient presented to the hospital with weakness noticed to have positive UA now with evidence of MSSA bacteremia possible urinary source, blood culture has been repeated to document clearance of bacteremia seeded abdominal pelvis did not show any obstructive uropathy or abscess 2-we will continue the patient on cefazolin and monitor clinical course closely Time with Patient: Less than 30
--- NOTE | 2022-11-15 15:49 | P.PN ---
Subjective Progress Note Date: 11/15/22 History of present illness: This is an 87-year-old male patient of Dr. Butler with past medical history of permanent atrial fibrillation, permanent pacemaker, hyperlipidemia, coronary artery disease. Patient underwent recent left carotid stent at [facility] was discharged to [facility] subsequently sent to [facility] due to mental status changes. Patient was brought into the hospital due to mental status changes and lethargy was diagnosed with acute metabolic encephalopathy and urinary tract infection as well as he presented with acute kidney injury, Coumadin toxicity with an initial INR 4.7. We have been asked to evaluate the patient for atrial fibrillation. Patient has been off Coumadin since arrival and INR today is at 1.7. Patient remains in atrial fibrillation with rate controlled in the 80s to low 100. Patient denies having any chest pain, shortness of breath, palpitations. Patient is somewhat confused. Patient was also found to have a pseudoaneurysm in the left groin is status post ultrasound-guided injection of thrombin with complete thrombosis. EKG atrial fibrillation with ventricular rate of 85 Chest x-ray: Chronic changes without acute cardiopulmonary process. CAT scan of the abdomen and pelvis revealed left inguinal region soft tissue collection possible hematoma. Mild anasarca and trace pleural effusions. Small right indirect hernia. Bilateral extrarenal pelvises no danyell hydronephrosis. Ultrasound of the left groin revealed left groin pseudoaneurysm measuring 3.9 x 2.0, 2.0. Initial WBC 15.1, now 10.1. Hemoglobin 9.8, platelet count 121. Sodium 142, potassium 3.7, chloride 116, CO2 21, BUN 26 and creatinine 0.71. Blood sugar 119. Troponin 0.037 and 0.0-1. Ammonia level less than 9. C-reactive protein 31.2. Albumin 1.9. Hepatitis panel negative. Blood culture positive for gram- positive cocci in clusters Home cardiac medications: Aspirin 81 mg daily, atenolol 25 mg daily, simvastatin 40 mg at bedtime. Echocardiogram 2018 revealed normal EF, mild MR, mild to moderate AR, mild TR. Wallace catheterization in 2001 revealed minimal coronary artery disease Lexiscan stress test in 2019 revealed normal EF, probably normal study. 11/14 Patient is seen today in follow-up. He remains in atrial fibrillation. Echocardiogram is pending. We did resume Coumadin yesterday as this was cleared by vascular surgery. INR is 2. Heart rate is 103, blood pressure 120/74, pulse ox 90% on room air. Repeat blood work reveals potassium of 2.8, BUN 24 creatinine 0.6. Potassium replacement has been ordered. 11/15 Patient denies having any chest pain or shortness of breath. Repeat blood work reveals uterus 2.8. Patient's been resumed on Coumadin and managed by pharmacy. Sodium 149, potassium 3.2 and repeat 3.5, BUN 27 creatinine 0.59. Patient is [facility] 60-65%, mild AR. Physical examination: Gen: This is an 87-year-old male patient resting in bed and appears to be comfortable. VS: reviewed. HEENT: Head is atraumatic, normocephalic. Pupils equal, round. Sclerae is anicteric. NECK: Supple. No JVD. . LUNGS: Clear to auscultation. No wheezes or rhonchi. No intercostal retractions. HEART: Irregular rate and rhythm. 2/6 systolic ejection murmur at the base. ABDOMEN: Soft No tenderness. EXTREMITIES: No pedal edema. No calf tenderness. NEUROLOGICAL: Patient is awake, alert, confused. Assessment: Permanent atrial fibrillation Hypercoagulopathy Hypokalemia Metabolic encephalopathy Acute urinary tract infection Right groin pseudoaneurysm status post thrombin injection Acute kidney injury ATN secondary to hypotension Nonobstructive coronary artery disease Permanent pacemaker Hyperlipidemia Plan: Continue patient's home cardiac medications Continue Coumadin Cardiology will sign off this case and follow on an as-needed basis. Please reconsult for any new concerns. Patient may follow-up in the office in one to 2 weeks. Nurse practitioner note has been reviewed, I agree with documented findings and plan of care. Patient was seen and examined. Objective - Vital Signs Vital signs: Vital Signs Temp 98.3 F 11/14/22 12:40 Pulse 101 H 11/15/22 11:24 Resp 16 11/15/22 11:24 BP 115/83 11/15/22 11:24 Pulse Ox 97 11/15/22 11:24 FiO2 21 11/12/22 07:49 Intake & Output 11/14/22 11/15/22 11/15/22 18:59 06:59 18:59 Output Total 500 875 Balance -500 -875 Weight 86.183 kg 86.183 kg Output: Urine 500 875 Other: Voiding Method Indwelling Catheter Indwelling Catheter Indwelling Catheter - Labs CBC & Chem 7: 11/15/22 07:00 11/15/22 14:09 Labs: Abnormal Lab Results - Last 24 Hours (Table) 11/15/22 11/15/22 11/15/22 Range/Units 07:00 07:00 07:00 RBC 3.27 L (4.30-5.90) m/uL Hgb 10.5 L (13.0-17.5) gm/dL Hct 31.8 L (39.0-53.0) % Lymphocytes # 0.6 L (1.0-4.8) k/uL PT 27.2 H (9.0-12.0) sec INR 2.8 H (<1.2) Sodium 149 H (137-145) mmol/L Potassium 3.2 L (3.5-5.1) mmol/L Chloride 123 H (98-107) mmol/L Carbon Dioxide 19 L (22-30) mmol/L BUN 27 H (9-20) mg/dL Creatinine 0.59 L (0.66-1.25) mg/dL Glucose 161 H (74-99) mg/dL Calcium 7.4 L (8.4-10.2) mg/dL Total Bilirubin 2.0 H (0.2-1.3) mg/dL AST 76 H (17-59) U/L Total Protein 5.0 L (6.3-8.2) g/dL Albumin 1.8 L (3.5-5.0) g/dL Microbiology - Last 24 Hours (Table) 11/11/22 20:29 Blood Culture Gram Stain - Final Blood Blood Culture - Final Staphylococcus aureus
--- NOTE | 2022-11-15 16:10 | CDI ---
Documentation Clarification Form Date: 11/15/2022 03:50:16 PM From: Isatu Edgar RN CCDS Phone: [phone] Admit Date: 11/09/2022 08:26:00 PM Patient Name: Agustín Bryan Visit Number: [id number] Discharge Date: ATTENTION: The Clinical Documentation Specialists (CDI) and [facility] Coding Staff appreciate your assistance in clarifying documentation. Please respond to the clarification below the line at the bottom and electronically sign. The CDI & [facility] Coding staff will review the response and follow-up if needed. Please note: Queries are made part of the Legal Health Record. If you have any questions, please contact the author of this message via ITS. Dr. Lucio Logan There is documentation of bacteremia is noted in the Medicine progress note, 11/13. Bacteremia is considered a lab finding. Additional clarification regarding bacteremia is requested. Patient history/risk factors: 87-year-old male presents to the ED from [facility] for concerns of being more lethargic then normal and possible infection. Medical History: Atrial Fibrillation, CVA/TIA and HLD. Consult ID, 11/11. Clinical Indicators: WBC, 11/09: 15.1 Neutrophils, 11/09: 14.3 VSS, 11/09 16:11 : B/P 88/54; HR 84; Temp 98.3F Axillary; RR 28; SpO2 96% room air Temperature, 11/11 15:02: 101.4F Axillary; 17:24 99.0 F Oral; 11/12 07:58 100.1F Oral Blood Culture, 11/11: Staphylococcus aureus Urine Culture, 11/09: Staphylococcus aureus Enterococcus faecalis Consult:ID, 11/14, Note: Patient presented to the hospital with weakness noticed to have positive UA now with evidence of MSSA bacteremia possible urinary source. Treatment: 11/09 0.9NS 500cc IV bolus; Antibiotics: 11/11 11/12 Ceftriaxone IVPB Q24HR; 11/13 Cefazolin IVPB Q8HR Please provide additional clarification regarding the etiology/cause and/or clinical significance of the bacteremia: [ x ] Sepsis with bacteremia due to Staphylococcus aureus UTI [ ] Other, please specify [ ] Unable to determine (Template Last Revised: June 2020) MTDD
--- NOTE | 2022-11-15 16:59 | P.PN ---
Subjective Patient is seen for follow-up for acute kidney injury. Started on IV fluids and Tabares catheter was placed after admission. Noted to have significant urine retention Gulshan at Serum creatinine has decreased to 0.59 mg/dL. sodium was elevated at 149 and started on D5W yesterday. It is 149 today as well. Patient is sleeping but arousable. Objective - Vital Signs Vital signs: Vital Signs Temp 98.3 F 11/14/22 12:40 Pulse 101 H 11/15/22 15:54 Resp 18 11/15/22 15:54 BP 122/66 11/15/22 15:54 Pulse Ox 99 11/15/22 15:54 FiO2 21 11/12/22 07:49 Intake & Output 11/14/22 11/15/22 11/15/22 18:59 06:59 18:59 Output Total 500 875 Balance -500 -875 Weight 86.183 kg 86.183 kg Output: Urine 500 875 Other: Voiding Method Indwelling Catheter Indwelling Catheter Indwelling Catheter - Exam Patient is sleeping but arousable, comfortable, no acute distress Examination of the heart S1 and S2 Examination the lungs decreased breath sounds at the bases Abdomen is soft mild tenderness noted Examination lower extremity shows no significant edema [employer] exam shows patient does not communicate much. He is able to move his upper extremities. - Labs CBC & Chem 7: 11/15/22 07:00 11/15/22 14:09 Labs: Abnormal Lab Results - Last 24 Hours (Table) 11/15/22 11/15/22 11/15/22 Range/Units 07:00 07:00 07:00 RBC 3.27 L (4.30-5.90) m/uL Hgb 10.5 L (13.0-17.5) gm/dL Hct 31.8 L (39.0-53.0) % Lymphocytes # 0.6 L (1.0-4.8) k/uL PT 27.2 H (9.0-12.0) sec INR 2.8 H (<1.2) Sodium 149 H (137-145) mmol/L Potassium 3.2 L (3.5-5.1) mmol/L Chloride 123 H (98-107) mmol/L Carbon Dioxide 19 L (22-30) mmol/L BUN 27 H (9-20) mg/dL Creatinine 0.59 L (0.66-1.25) mg/dL Glucose 161 H (74-99) mg/dL Calcium 7.4 L (8.4-10.2) mg/dL Total Bilirubin 2.0 H (0.2-1.3) mg/dL AST 76 H (17-59) U/L Total Protein 5.0 L (6.3-8.2) g/dL Albumin 1.8 L (3.5-5.0) g/dL Microbiology - Last 24 Hours (Table) 11/11/22 20:29 Blood Culture Gram Stain - Final Blood Blood Culture - Final Staphylococcus aureus Assessment and Plan Assessment: 1. Acute kidney injury ATN secondary to low blood pressure as well as urine retention. Currently with Tabares catheter and maintained on IV fluids with improved blood pressure. 2. Mental status changes secondary to volume depletion, metabolic encephalopathy from underlying underlying infection. Patient has history of underlying dementia and previous history of CVA 3. Coumadin related coagulopathy 4. Chronic persistent A. fib 5. History of BPH 6. Hypokalemia secondary to decreased intake 7. UTI with urine culture growing staph aureus and Enterococcus faecalis. Being followed by ID. 8. Staph aureus bacteremia Plan: Continue with Tabares catheter [id number] to 75ml/hr Continue Flomax Continue antibiotics as per ID Repeat labs in a.m.
[2022-11-15] MEDS ORDERED: WARFARIN 0.5 MG TAB PO ONE (18:00)
[2022-11-15] MEDS: TAMSULOSIN 0.4 MG CAP.ER.24H PO SCH (20:24)
[2022-11-15] MEDS: FINASTERIDE 5 MG TAB PO SCH (20:24)
[2022-11-15] MEDS: NON FORMULARY DRUG (Simvastatin 20 MG Tab) PO SCH (20:25)
[2022-11-16] MEDS: CHOLECALCIFEROL 25 MCG (1000 IU) TABLET PO SCH (08:04)
[2022-11-16] MEDS: ASPIRIN 81 MG PO SCH (08:04)
[2022-11-16] MEDS: risperiDONE 0.25 MG TAB PO SCH ×2 (08:05→20:07)
[2022-11-16] MEDS: METOPROLOL TARTRATE 12.5 MG TAB PO SCH ×2 (08:05→20:07)
[2022-11-16] MEDS: FAMOTIDINE 20 MG TAB PO SCH (08:05)
[2022-11-16 08:47] LABS: Basophils % (A) 0 %; Eosinophils # (A) 0.1 k/uL (0-0.7); Eosinophils % (A) 1 %; HCT 30.8 % (39.0-53.0); Hypochromasia Marked; Lymphocytes # (A) 0.7 k/uL (1.0-4.8); Lymphocytes % (A) 8 %; MCH 31.4 pg (25.0-35.0); MCHC 32.5 g/dL (31.0-37.0); MCV 96.6 fL (80.0-100.0); Mean Platelet Volume 10.3; Monocytes # (A) 0.2 k/uL (0-1.0); Monocytes % (A) 2 %; Neutrophils # (A) 7.3 k/uL (1.3-7.7); Neutrophils % (A) 88 %; Platelet Count 188 k/uL (150-450); Poikilocytosis Slight; RBC 3.18 m/uL (4.30-5.90); RDW 14.9 % (11.5-15.5); WBC 8.4 k/uL (3.8-10.6)
[2022-11-16 08:49] LABS: INR 3.2 (<1.2); Prothrombin Time 30.8 sec (9.0-12.0)
[2022-11-16 09:04] LABS: ALT 22 U/L (4-49); AST 73 U/L (17-59); African American GFR (CKD) >90 (>60 ml/min/1.73 sqM); Albumin 1.8 g/dL (3.5-5.0); Alkaline Phosphatase 93 U/L (38-126); Anion Gap 5 mmol/L; Blood Urea Nitrogen 22 mg/dL (9-20); Calcium 7.1 mg/dL (8.4-10.2); Carbon Dioxide 22 mmol/L (22-30); Chloride 121 mmol/L (98-107); Glucose 124 mg/dL (74-99); Non-African American GFR(CKD) >90 (>60 ml/min/1.73 sqM); Potassium 3.3 mmol/L (3.5-5.1); Sodium 148 mmol/L (137-145); Total Bilirubin 1.3 mg/dL (0.2-1.3); Total Protein 4.7 g/dL (6.3-8.2)
[2022-11-16] MEDS: DEXTROSE 5% IN WATER 1,000 ML IV SCH (09:30)
[2022-11-16] MEDS ORDERED: POTASSIUM CHLORIDE ER 20 MEQ TAB.ER PO STA (11:32)
--- NOTE | 2022-11-16 13:26 | P.PN ---
Subjective Patient is seen for follow-up for acute kidney injury. Started on IV fluids and Tabares catheter was placed after admission. Noted to have significant urine retention. Serum creatinine has decreased to 0.59 mg/dL. sodium was elevated at [address] arted on D5W Patient is awake and able to communicate quite well today. Family is present at bedside. Objective - Vital Signs Vital signs: Vital Signs Temp 98.4 F 11/16/22 12:00 Pulse 101 H 11/16/22 12:00 Resp 18 11/16/22 12:00 BP 109/65 11/16/22 12:00 Pulse Ox 99 11/16/22 12:00 FiO2 21 11/12/22 07:49 Intake & Output 11/15/22 11/16/22 11/16/22 18:59 06:59 18:59 Intake Total 240 Output Total 400 300 Balance -160 -300 Weight 86.183 kg Intake: Oral 240 Output: Urine 400 300 Other: Voiding Method Indwelling Catheter Indwelling Catheter Indwelling Catheter - Exam Patient is awake, comfortable, no acute distress Able to communicate fairly well today Examination of the heart S1 and S2 Examination the lungs decreased breath sounds at the bases Abdomen is soft mild tenderness noted Examination lower extremity shows no significant edema No gross motor deficits noted. - Labs CBC & Chem 7: 11/16/22 07:50 11/16/22 07:50 Labs: Abnormal Lab Results - Last 24 Hours (Table) 11/16/22 11/16/22 11/16/22 Range/Units 07:50 07:50 07:50 RBC 3.18 L (4.30-5.90) m/uL Hgb 10.0 L (13.0-17.5) gm/dL Hct 30.8 L (39.0-53.0) % Lymphocytes # 0.7 L (1.0-4.8) k/uL PT 30.8 H (9.0-12.0) sec INR 3.2 H (<1.2) Sodium 148 H (137-145) mmol/L Potassium 3.3 L (3.5-5.1) mmol/L Chloride 121 H (98-107) mmol/L BUN 22 H (9-20) mg/dL Creatinine 0.53 L (0.66-1.25) mg/dL Glucose 124 H (74-99) mg/dL Calcium 7.1 L (8.4-10.2) mg/dL AST 73 H (17-59) U/L Total Protein 4.7 L (6.3-8.2) g/dL Albumin 1.8 L (3.5-5.0) g/dL Microbiology - Last 24 Hours (Table) 11/15/22 07:00 Blood Culture Gram Stain - Preliminary Blood 11/14/22 21:14 Blood Culture Gram Stain - Preliminary Blood Blood Culture - Preliminary Presumptive Staph aureus Assessment and Plan Assessment: 1. Acute kidney injury ATN secondary to low blood pressure as well as urine retention. Currently with Tabares catheter and maintained on IV fluids with improved blood pressure. 2. Mental status changes secondary to volume depletion, metabolic encephalopathy from underlying underlying infection. Patient has history of underlying dementia and previous history of CVA 3. Coumadin related coagulopathy 4. Chronic persistent A. fib 5. History of BPH 6. Hypokalemia secondary to decreased intake 7. UTI with urine culture growing staph aureus and Enterococcus faecalis. Being followed by ID. 8. Staph aureus bacteremia Plan: Continue with Tabares catheter Continue D5W Continue Flomax Continue antibiotics as per ID Repeat labs in a.m. Replace potassium
--- NOTE | 2022-11-16 13:40 | P.PN ---
Subjective Progress Note Date: 11/16/22 87-year-old patient, brought in from [facility] in the [place]. Patient was noted by the nurses to have decreased mental status. 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 Was found to be more lethargic and difficult to arouse at times. EKG was paced rhythm. Initial blood pressure was 73/44. Pulse of 91. Pulse ox of 97%. Repeat blood pressure was 86/40. Patient himself is not able to give any much history. found a significant bruise in the left side of the body especially the flank going over the thigh. Patient is not sure if he hada fall. Patient not a good historian. Can only answer some simple questions. Nonambulatory. Weak in both the shoulders. Pain in the shoulder. Has a Tabares catheter with some blood in there. 11/11. Patient seen and examined. Patient is alert to self and person. Family at the bedside. 11/12. Patient seen and examined. Hemoglobin this morning is 9.8, sodium 142, potassium 3.7, BUN 5, crit 26 11/13. Patient seen and examined. Still is confused. Does not look in acute distress 11/14. Patient seen and examined. Patient is alert, sodium level this morning is 149, potassium is 2.8. Patient resumed back on Coumadin per vascular surgery 11/15. Patient seen and examined with hemoglobin this morning is 10.5, sodium is 149, potassium is 3.2, BUN is 27, creatinine 0.59,. Patient continues to have poor appetite, discussed with patient's and daughter regarding alternative form of nutrition, 11/16. Patient seen and examined. Labs done this morning, sodium 148, potassium 3.3, BUN 22, creatinine 0.53, glucose 124. Family at the bedside, states he is doing better today PHYSICAL EXAMINATION: GENERAL: The patient is alert and oriented x1, not in any acute distress. Well developed, well nourished. HEENT: Pupils are round and equally reacting to light. EOMI. No scleral icterus. No conjunctival pallor. Normocephalic, atraumatic. No pharyngeal erythema. No thyromegaly. CARDIOVASCULAR: S1 and S2 present. No murmurs, rubs, or gallops. PULMONARY: Chest is clear to auscultation, no wheezing or crackles. ABDOMEN: Soft, nontender, nondistended, normoactive bowel sounds. No palpable organomegaly. MUSCULOSKELETAL: No joint swelling or deformity. EXTREMITIES: 1Plus pitting edema lower extremities bilaterally NEUROLOGICAL: Gross neurological examination did not reveal any focal deficits. SKIN: Left sided bruising seen over the belly area Assessment and plan Acute metabolic encephalopathy. UTI Bacteremia Monitor vital signs Monitor CBC Continue D5 W Continue IV cefazolin Follow-up in ID recommendations -Coumadin toxicity. 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 Rate controlled. Continue Lopressor 12.5 twice a day. Continue pharmacy dose Coumadin Follow-up on cardiology recommendations -Chronic medical debility Acute kidney injury Strict I's and O's, daily weights Continue Tabares Continue IV fluids Follow-up in nephrology recommendations -Hypotension. Resolved -GERD Pepcid -BPH Finasteride 5 mg daily at bedtime. Flomax 0.4 mg daily at bedtime. -Bilateral shoulder very limited range of motion.Bilateral chronic rotator cuff arthropathy. Possible chronic stress fracture left acromion from the ongoing glenohumeral joint instability. 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 Orthopedic evaluated, no need for any surgical intervention Labs and medication were reviewed.. Continue same treatment. Continue with symptomatic treatment. Resume home medication. Monitor labs and vitals. DVT and GI prophylaxis. Further recommendations as per clinical course of the patient Objective - Vital Signs Vital signs: Vital Signs Temp 98.6 F 11/16/22 08:00 Pulse 81 11/16/22 08:00 Resp 16 11/16/22 08:00 BP 112/65 11/16/22 08:00 Pulse Ox 97 11/16/22 08:00 FiO2 21 11/12/22 07:49 Intake & Output 11/15/22 11/16/22 11/16/22 18:59 06:59 18:59 Intake Total 240 Output Total 400 300 Balance -160 -300 Weight 86.183 kg Intake: Oral 240 Output: Urine 400 300 Other: Voiding Method Indwelling Catheter Indwelling Catheter Indwelling Catheter - Labs CBC & Chem 7: 11/16/22 07:50 11/16/22 07:50 Labs: Abnormal Lab Results - Last 24 Hours (Table) 11/16/22 11/16/22 11/16/22 Range/Units 07:50 07:50 07:50 RBC 3.18 L (4.30-5.90) m/uL Hgb 10.0 L (13.0-17.5) gm/dL Hct 30.8 L (39.0-53.0) % Lymphocytes # 0.7 L (1.0-4.8) k/uL PT 30.8 H (9.0-12.0) sec INR 3.2 H (<1.2) Sodium 148 H (137-145) mmol/L Potassium 3.3 L (3.5-5.1) mmol/L Chloride 121 H (98-107) mmol/L BUN 22 H (9-20) mg/dL Creatinine 0.53 L (0.66-1.25) mg/dL Glucose 124 H (74-99) mg/dL Calcium 7.1 L (8.4-10.2) mg/dL AST 73 H (17-59) U/L Total Protein 4.7 L (6.3-8.2) g/dL Albumin 1.8 L (3.5-5.0) g/dL Microbiology - Last 24 Hours (Table) 11/14/22 21:14 Blood Culture Gram Stain - Preliminary Blood Blood Culture - Preliminary Presumptive Staph aureus
--- NOTE | 2022-11-16 16:01 | P.PN ---
Subjective Progress Note Date: 11/16/22 Principal diagnosis: Urinary tract infection patient is a 87-year-old male assisted resident patient was sent to the ER for evaluation of patient being more lethargic than normal and there was concern for possible infection, patient did have elevated white count ad mission and he did spike a fever positive UA concerning for UTI and also have extensive bruising to the left groin and lower abdominal area being monitored by the vascular team and consult for possible pseudoaneurysm. On today's evaluation that is 11/16/2022 patient continues to be afebrile and has a patient is breathing comfortably on room air , the patient is sleepy lethargic and did not answer any question or vomiting diarrhea or any other changes reported by the nursing staff Patient white count has normalized however the patient did have a positive blood culture from 11/14/2022 as well as 11/15/2022 Objective - Vital Signs Vital signs: Vital Signs Temp 98.4 F 11/16/22 12:00 Pulse 101 H 11/16/22 14:00 Resp 18 11/16/22 14:00 BP 109/65 11/16/22 12:00 Pulse Ox 99 11/16/22 12:00 FiO2 21 11/12/22 07:49 Intake & Output 11/15/22 11/16/22 11/16/22 18:59 06:59 18:59 Intake Total 240 180 Output Total 400 300 Balance -160 -300 180 Weight 86.183 kg Intake: Oral 240 180 Output: Urine 400 300 Other: Voiding Method Indwelling Catheter Indwelling Catheter Indwelling Catheter - Exam GENERAL DESCRIPTION: An elderly male lying in bed in no distress RESPIRATORY SYSTEM: Unlabored breathing , decreased breath sounds at bases HEART: S1 S2 regular rate and rhythm , ABDOMEN: Soft , no tenderness EXTREMITIES: Extensive bruising to the left lateral thigh and lower abdominal area no redness - Labs CBC & Chem 7: 11/16/22 07:50 11/16/22 07:50 Labs: Abnormal Lab Results - Last 24 Hours (Table) 11/16/22 11/16/22 11/16/22 Range/Units 07:50 07:50 07:50 RBC 3.18 L (4.30-5.90) m/uL Hgb 10.0 L (13.0-17.5) gm/dL Hct 30.8 L (39.0-53.0) % Lymphocytes # 0.7 L (1.0-4.8) k/uL PT 30.8 H (9.0-12.0) sec INR 3.2 H (<1.2) Sodium 148 H (137-145) mmol/L Potassium 3.3 L (3.5-5.1) mmol/L Chloride 121 H (98-107) mmol/L BUN 22 H (9-20) mg/dL Creatinine 0.53 L (0.66-1.25) mg/dL Glucose 124 H (74-99) mg/dL Calcium 7.1 L (8.4-10.2) mg/dL AST 73 H (17-59) U/L Total Protein 4.7 L (6.3-8.2) g/dL Albumin 1.8 L (3.5-5.0) g/dL Microbiology - Last 24 Hours (Table) 11/15/22 07:00 Blood Culture Gram Stain - Preliminary Blood 11/14/22 21:14 Blood Culture Gram Stain - Preliminary Blood Blood Culture - Preliminary Presumptive Staph aureus Assessment and Plan (1) Fever Current Visit: Yes Status: Acute Code(s): R50.9 - FEVER, UNSPECIFIED SNOMED Code(s): 770515322 (2) Urinary tract infection Current Visit: Yes Status: Acute Code(s): N39.0 - URINARY TRACT INFECTION, SITE NOT SPECIFIED SNOMED Code(s): 78768872 (3) Bacteremia due to methicillin susceptible Staphylococcus aureus (MSSA) Current Visit: Yes Status: Acute Code(s): R78.81 - BACTEREMIA; B95.61 - METHICILLIN SUSCEP STAPH INFCT CAUSING DIS CLASSD ELSWHR SNOMED Code(s): 905535085 Plan: Patient presented to the hospital with weakness noticed to have positive UA now with evidence of MSSA bacteremia possible urinary source, blood culture has been repeated to document clearance of bacteremia seeded abdominal pelvis did not show any obstructive uropathy or abscess 2-patient did have evidence of persistent bacteremia concerning for possible endovascular source echocardiogram will be ordered 3-we will repeat blood cultures to document clearance of his bacteremia 4-discontinue cefazolin and start the patient on naficilin and monitor clinical course closely
[2022-11-16] MEDS: NAFCILLIN 2 GM in DEXTROSE 5% IN WATER 100 ML IVPB SCH ×6 (17:01→23:54)
[2022-11-16] MEDS ORDERED: WARFARIN 0.5 MG TAB PO ONE (18:00)
[2022-11-16] MEDS: NON FORMULARY DRUG (Simvastatin 20 MG Tab) PO SCH (19:57)
[2022-11-16] MEDS: FINASTERIDE 5 MG TAB PO SCH (20:07)
[2022-11-16] MEDS: TAMSULOSIN 0.4 MG CAP.ER.24H PO SCH (20:07)
[2022-11-17] MEDS: NAFCILLIN 2 GM in DEXTROSE 5% IN WATER 100 ML IVPB SCH ×12 (04:39→23:26)
[2022-11-17] MEDS: DEXTROSE 5% IN WATER 1,000 ML IV SCH ×3 (06:23→21:01)
[2022-11-17] MEDS: risperiDONE 0.25 MG TAB PO SCH ×2 (10:30→21:00)
[2022-11-17] MEDS: ASPIRIN 81 MG PO SCH (10:30)
[2022-11-17] MEDS: FAMOTIDINE 20 MG TAB PO SCH (10:30)
[2022-11-17] MEDS: CHOLECALCIFEROL 25 MCG (1000 IU) TABLET PO SCH (10:30)
[2022-11-17] MEDS: METOPROLOL TARTRATE 12.5 MG TAB PO SCH ×2 (10:30→21:00)
--- NOTE | 2022-11-17 10:50 | P.PN ---
Subjective Patient is seen for follow-up for acute kidney injury. Started on IV fluids and Tabares catheter was placed after admission. Noted to have significant urine retention. Serum creatinine has decreased to 0.59 mg/dL. sodium was elevated at [address] arted on D5W. It was down to 148 yesterday. Labs are pending from today. Patient is sleeping but arousable today. No significant complaints. Objective - Vital Signs Vital signs: Vital Signs Temp 98.4 F 11/17/22 08:00 Pulse 96 11/17/22 08:00 Resp 16 11/17/22 08:00 BP 104/58 11/17/22 08:00 Pulse Ox 96 11/17/22 08:00 FiO2 21 11/12/22 07:49 Intake & Output 11/16/22 11/17/22 11/17/22 18:59 06:59 18:59 Intake Total 180 Output Total 325 600 300 Balance -145 -600 -300 Intake: Oral 180 Output: Urine 325 600 300 Uretheral (Tabares) 300 300 Other: Voiding Method Indwelling Catheter Indwelling Catheter Indwelling Catheter - Exam Patient is awake, comfortable, no acute distress Able to communicate fairly well Examination of the heart S1 and S2 Examination the lungs decreased breath sounds at the bases Abdomen is soft mild tenderness noted Examination lower extremity shows no significant edema No gross motor deficits noted. - Labs CBC & Chem 7: 11/16/22 07:50 11/16/22 07:50 Labs: Microbiology - Last 24 Hours (Table) 11/15/22 07:00 Blood Culture Gram Stain - Preliminary Blood 11/14/22 21:14 Blood Culture Gram Stain - Preliminary Blood Blood Culture - Preliminary Presumptive Staph aureus Assessment and Plan Assessment: 1. Acute kidney injury ATN secondary to low blood pressure as well as urine retention. Currently with Tabares catheter and maintained on IV fluids with improved renal function. 2. Mental status changes secondary to volume depletion, metabolic encephalopathy from underlying underlying infection. Patient has history of underlying dementia and previous history of CVA 3. Coumadin related coagulopathy 4. Chronic persistent A. fib 5. History of BPH 6. Hypokalemia secondary to decreased intake 7. UTI with urine culture growing staph aureus and Enterococcus faecalis. Being followed by ID. 8. Staph aureus bacteremia Plan: Continue with Tabares catheter Continue D5W Continue Flomax Continue antibiotics as per ID Repeat labs in a.m. Replace potassium Follow-up on labs from today
[2022-11-17 13:04] LABS: ALT 20 U/L (4-49); AST 60 U/L (17-59); African American GFR (CKD) >90 (>60 ml/min/1.73 sqM); Albumin 1.7 g/dL (3.5-5.0); Alkaline Phosphatase 96 U/L (38-126); Anion Gap 4 mmol/L; Blood Urea Nitrogen 24 mg/dL (9-20); Calcium 7.1 mg/dL (8.4-10.2); Carbon Dioxide 19 mmol/L (22-30); Chloride 123 mmol/L (98-107); Glucose 120 mg/dL (74-99); Non-African American GFR(CKD) 82 (>60 ml/min/1.73 sqM); Potassium 3.4 mmol/L (3.5-5.1); Prothrombin Time 49.7 sec (9.0-12.0); Sodium 146 mmol/L (137-145); Total Bilirubin 2.2 mg/dL (0.2-1.3); Total Protein 4.6 g/dL (6.3-8.2)
[2022-11-17 14:55] LABS: HCT 30.9 % (39.0-53.0); HGB 9.9 gm/dL (13.0-17.5); Hypochromasia Marked; MCH 31.2 pg (25.0-35.0); MCV 97.3 fL (80.0-100.0); Mean Platelet Volume 9.8; Platelet Count 156 k/uL (150-450); Poikilocytosis Slight; RBC 3.18 m/uL (4.30-5.90); WBC 7.5 k/uL (3.8-10.6)
[2022-11-17 15:34] LABS: Band Neutrophils % 1 %; Lymphocytes # (M) 0.45 k/uL (1.0-4.8); Monocytes # (M) 0.23 k/uL (0-1.0); Myelocytes # (M) 0.08 k/uL (0); Myelocytes % 1 %; Neutrophils % (M) 91 %; Nucleated Red Blood Cells 0 /100 WBC (0-0); Total Cells Counted 200
--- NOTE | 2022-11-17 16:08 | P.PN ---
Subjective Progress Note Date: 11/17/22 Principal diagnosis: Urinary tract infection patient is a 87-year-old male correction resident patient was sent to the ER for evaluation of patient being more lethargic than normal and there was concern for possible infection, patient did have elevated white count ad mission and he did spike a fever positive UA concerning for UTI and also have extensive bruising to the left groin and lower abdominal area being monitored by the vascular team and consult for possible pseudoaneurysm. On today's evaluation that is 11/17/2022 patient remains to be afebrile and has a patient is breathing comfortably on room air , the patient is slightly more awake and alert today patient denies any chest pain or cough no abdominal pain and no diarrhea has been reported Objective - Vital Signs Vital signs: Vital Signs Temp 98.1 F 11/17/22 14:57 Pulse 84 11/17/22 14:57 Resp 18 11/17/22 14:57 BP 105/55 11/17/22 14:57 Pulse Ox 98 11/17/22 14:57 FiO2 21 11/12/22 07:49 Intake & Output 11/16/22 11/17/22 11/17/22 18:59 06:59 18:59 Intake Total 180 Output Total 325 600 600 Balance -145 -600 -600 Intake: Oral 180 Output: Urine 325 600 600 Uretheral (Tabares) 300 600 Other: Voiding Method Indwelling Catheter Indwelling Catheter Indwelling Catheter - Exam GENERAL DESCRIPTION: An elderly male lying in bed in no distress RESPIRATORY SYSTEM: Unlabored breathing , decreased breath sounds at bases HEART: S1 S2 regular rate and rhythm , ABDOMEN: Soft , no tenderness EXTREMITIES: Extensive bruising to the left lateral thigh and lower abdominal area no redness - Labs CBC & Chem 7: 11/17/22 12:07 11/17/22 12:07 Labs: Abnormal Lab Results - Last 24 Hours (Table) 11/17/22 11/17/22 11/17/22 Range/Units 12:07 12:07 12:07 RBC 3.18 L (4.30-5.90) m/uL Hgb 9.9 L (13.0-17.5) gm/dL Hct 30.9 L (39.0-53.0) % PT 49.7 H (9.0-12.0) sec INR 5.0 H (<1.2) Sodium 146 H (137-145) mmol/L Potassium 3.4 L (3.5-5.1) mmol/L Chloride 123 H (98-107) mmol/L Carbon Dioxide 19 L (22-30) mmol/L BUN 24 H (9-20) mg/dL Glucose 120 H (74-99) mg/dL Calcium 7.1 L (8.4-10.2) mg/dL Total Bilirubin 2.2 H (0.2-1.3) mg/dL AST 60 H (17-59) U/L Total Protein 4.6 L (6.3-8.2) g/dL Albumin 1.7 L (3.5-5.0) g/dL Microbiology - Last 24 Hours (Table) 11/15/22 07:00 Blood Culture Gram Stain - Final Blood Blood Culture - Final Staphylococcus aureus 11/14/22 21:14 Blood Culture Gram Stain - Final Blood Blood Culture - Final Staphylococcus aureus Assessment and Plan (1) Fever Current Visit: Yes Status: Acute Code(s): R50.9 - FEVER, UNSPECIFIED SNOMED Code(s): 825457639 (2) Urinary tract infection Current Visit: Yes Status: Acute Code(s): N39.0 - URINARY TRACT INFECTION, SITE NOT SPECIFIED SNOMED Code(s): 75826569 (3) Bacteremia due to methicillin susceptible Staphylococcus aureus (MSSA) Current Visit: Yes Status: Acute Code(s): R78.81 - BACTEREMIA; B95.61 - METHICILLIN SUSCEP STAPH INFCT CAUSING DIS CLASSD ELSWHR SNOMED Code(s): 985294283 Plan: Patient presented to the hospital with weakness noticed to have positive UA now with evidence of MSSA bacteremia possible urinary source, blood culture has been repeated to document clearance of bacteremia seeded abdominal pelvis did not show any obstructive uropathy or abscess 2-patient did have evidence of persistent bacteremia concerning for possible endovascular source echocardiogram has been ordered 3- blood cultures will be repeated daily to document clearance of his bacteremia 4Continue the patient on naficilin and monitor clinical course closely
--- NOTE | 2022-11-17 16:21 | P.PN ---
Subjective Progress Note Date: 11/17/22 87-year-old patient, brought in from [facility] in the [place]. Patient was noted by the nurses to have decreased mental status. 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 Was found to be more lethargic and difficult to arouse at times. EKG was paced rhythm. Initial blood pressure was 73/44. Pulse of 91. Pulse ox of 97%. Repeat blood pressure was 86/40. Patient himself is not able to give any much history. found a significant bruise in the left side of the body especially the flank going over the thigh. Patient is not sure if he hada fall. Patient not a good historian. Can only answer some simple questions. Nonambulatory. Weak in both the shoulders. Pain in the shoulder. Has a Tabares catheter with some blood in there. 11/11. Patient seen and examined. Patient is alert to self and person. Family at the bedside. 11/12. Patient seen and examined. Hemoglobin this morning is 9.8, sodium 142, potassium 3.7, BUN 5, crit 26 11/13. Patient seen and examined. Still is confused. Does not look in acute distress 11/14. Patient seen and examined. Patient is alert, sodium level this morning is 149, potassium is 2.8. Patient resumed back on Coumadin per vascular surgery 11/15. Patient seen and examined with hemoglobin this morning is 10.5, sodium is 149, potassium is 3.2, BUN is 27, creatinine 0.59,. Patient continues to have poor appetite, discussed with patient's and daughter regarding alternative form of nutrition, 11/16. Patient seen and examined. Labs done this morning, sodium 148, potassium 3.3, BUN 22, creatinine 0.53, glucose 124. Family at the bedside, states he is doing better today 11/17. Patient seen and examined. Sodium this morning is 146, potassium 3.4, BUN 24, creatinine 0.75. INR was 5 PHYSICAL EXAMINATION: GENERAL: The patient is alert and oriented x1, not in any acute distress. Well developed, well nourished. HEENT: Pupils are round and equally reacting to light. EOMI. No scleral icterus. No conjunctival pallor. Normocephalic, atraumatic. No pharyngeal erythema. No thyromegaly. CARDIOVASCULAR: S1 and S2 present. No murmurs, rubs, or gallops. PULMONARY: Chest is clear to auscultation, no wheezing or crackles. ABDOMEN: Soft, nontender, nondistended, normoactive bowel sounds. No palpable organomegaly. MUSCULOSKELETAL: No joint swelling or deformity. EXTREMITIES: 1Plus pitting edema lower extremities bilaterally NEUROLOGICAL: Gross neurological examination did not reveal any focal deficits. SKIN: Left sided bruising seen over the belly area Assessment and plan Acute metabolic encephalopathy. UTI Bacteremia Monitor vital signs Monitor CBC Continue D5 W Continue IV nafcillin Follow-up in ID recommendations -Coumadin toxicity. 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 Rate controlled. Continue Lopressor 12.5 twice a day. Continue pharmacy dose Coumadin, hold Coumadin for today Follow-up on cardiology recommendations -Chronic medical debility Acute kidney injury Strict I's and O's, daily weights Continue Tabares Continue IV fluids Follow-up in nephrology recommendations -Hypotension. Resolved -GERD Pepcid -BPH Finasteride 5 mg daily at bedtime. Flomax 0.4 mg daily at bedtime. -Bilateral shoulder very limited range of motion.Bilateral chronic rotator cuff arthropathy. Possible chronic stress fracture left acromion from the ongoing glenohumeral joint instability. 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 Orthopedic evaluated, no need for any surgical intervention Labs and medication were reviewed.. Continue same treatment. Continue with symptomatic treatment. Resume home medication. Monitor labs and vitals. DVT and GI prophylaxis. Further recommendations as per clinical course of the patient Objective - Vital Signs Vital signs: Vital Signs Temp 98.1 F 11/17/22 14:57 Pulse 84 11/17/22 14:57 Resp 18 11/17/22 14:57 BP 105/55 11/17/22 14:57 Pulse Ox 98 11/17/22 14:57 FiO2 21 11/12/22 07:49 Intake & Output 11/16/22 11/17/22 11/17/22 18:59 06:59 18:59 Intake Total 180 Output Total 325 600 600 Balance -145 -600 -600 Intake: Oral 180 Output: Urine 325 600 600 Uretheral (Tabares) 300 600 Other: Voiding Method Indwelling Catheter Indwelling Catheter Indwelling Catheter - Labs CBC & Chem 7: 11/17/22 12:07 11/17/22 12:07 Labs: Abnormal Lab Results - Last 24 Hours (Table) 11/17/22 11/17/22 11/17/22 Range/Units 12:07 12:07 12:07 RBC 3.18 L (4.30-5.90) m/uL Hgb 9.9 L (13.0-17.5) gm/dL Hct 30.9 L (39.0-53.0) % Lymphocytes # (Manual) 0.45 L (1.0-4.8) k/uL Myelocytes # (Manual) 0.08 H (0) k/uL PT 49.7 H (9.0-12.0) sec INR 5.0 H (<1.2) Sodium 146 H (137-145) mmol/L Potassium 3.4 L (3.5-5.1) mmol/L Chloride 123 H (98-107) mmol/L Carbon Dioxide 19 L (22-30) mmol/L BUN 24 H (9-20) mg/dL Glucose 120 H (74-99) mg/dL Calcium 7.1 L (8.4-10.2) mg/dL Total Bilirubin 2.2 H (0.2-1.3) mg/dL AST 60 H (17-59) U/L Total Protein 4.6 L (6.3-8.2) g/dL Albumin 1.7 L (3.5-5.0) g/dL Microbiology - Last 24 Hours (Table) 11/15/22 07:00 Blood Culture Gram Stain - Final Blood Blood Culture - Final Staphylococcus aureus 11/14/22 21:14 Blood Culture Gram Stain - Final Blood Blood Culture - Final Staphylococcus aureus
[2022-11-17 17:01] LABS: Basophils % (A) 0 %; Eosinophils % (A) 1 %; HGB 10.4 gm/dL (13.0-17.5); Hypochromasia Moderate; Lymphocytes # (A) 0.7 k/uL (1.0-4.8); Lymphocytes % (A) 8 %; MCH 31.5 pg (25.0-35.0); MCHC 32.6 g/dL (31.0-37.0); MCV 96.6 fL (80.0-100.0); Mean Platelet Volume 9.6; Monocytes # (A) 0.3 k/uL (0-1.0); Monocytes % (A) 3 %; Neutrophils # (A) 6.8 k/uL (1.3-7.7); Neutrophils % (A) 87 %; Platelet Count 178 k/uL (150-450); Poikilocytosis Slight; RBC 3.31 m/uL (4.30-5.90); RDW 15.2 % (11.5-15.5); WBC 7.8 k/uL (3.8-10.6)
[2022-11-17] MEDS ORDERED: WARFARIN 0.5 MG TAB PO ONE (18:00)
[2022-11-17] MEDS: FINASTERIDE 5 MG TAB PO SCH (21:00)
[2022-11-17] MEDS: NON FORMULARY DRUG (Simvastatin 20 MG Tab) PO SCH (21:00)
[2022-11-17] MEDS: TAMSULOSIN 0.4 MG CAP.ER.24H PO SCH (21:01)
[2022-11-18] MEDS: NAFCILLIN 2 GM in DEXTROSE 5% IN WATER 100 ML IVPB SCH ×12 (04:06→23:13)
[2022-11-18 08:10] LABS: Prothrombin Time 68.5 sec (9.0-12.0)
[2022-11-18 08:13] LABS: HCT 30.7 % (39.0-53.0); HGB 9.8 gm/dL (13.0-17.5); Hypochromasia Marked; MCHC 31.9 g/dL (31.0-37.0); Mean Platelet Volume 9.6; Platelet Count 191 k/uL (150-450); RBC 3.17 m/uL (4.30-5.90); RDW 14.9 % (11.5-15.5); WBC 8.2 k/uL (3.8-10.6)
[2022-11-18 08:31] LABS: INR 6.8 (<1.2)
[2022-11-18] MEDS: METOPROLOL TARTRATE 12.5 MG TAB PO SCH ×2 (09:34→20:28)
[2022-11-18] MEDS: ASPIRIN 81 MG PO SCH (09:34)
[2022-11-18] MEDS: risperiDONE 0.25 MG TAB PO SCH ×2 (09:34→20:28)
[2022-11-18] MEDS: FAMOTIDINE 20 MG TAB PO SCH (09:34)
[2022-11-18] MEDS: CHOLECALCIFEROL 25 MCG (1000 IU) TABLET PO SCH (09:34)
[2022-11-18 10:02] LABS: Band Neutrophils % 1 %; Eosinophils # (M) 0.08 k/uL (0-0.7); Lymphocytes # (M) 0.74 k/uL (1.0-4.8); Metamyelocytes # (M) 0.08 k/uL (0); Metamyelocytes % 1 %; Monocytes # (M) 0.08 k/uL (0-1.0); Neutrophils % (M) 89 %; Nucleated Red Blood Cells 0 /100 WBC (0-0); Total Cells Counted 200
[2022-11-18] MEDS ORDERED: PHYTONADIONE ORAL 5 MG/5 ML ORAL.SYRG PO STA (12:44)
--- NOTE | 2022-11-18 12:55 | P.PN ---
Subjective Patient is seen in follow-up for acute kidney injury and hypernatremia. GFR back to baseline. Sodium level CXLVI yesterday. Receiving D5W. On dysphagia 3 chopped diet. Blood pressure stable. Nonoliguric. Vital signs are stable. General: No acute distress. HEENT: Head exam is unremarkable. LUNGS: No audible rhonchi or wheezes. HEART: Rate and Rhythm are regular. ABDOMEN: Nontender. EXTREMITITES: No edema. Objective - Vital Signs Vital signs: Vital Signs Temp 98 F 11/18/22 08:00 Pulse 100 11/18/22 08:00 Resp 18 11/18/22 08:00 BP 106/65 11/18/22 08:00 Pulse Ox 97 11/18/22 08:00 FiO2 21 11/12/22 07:49 Intake & Output 11/17/22 11/18/22 11/18/22 18:59 06:59 18:59 Intake Total 120 Output Total 600 1550 300 Balance -600 -1550 -180 Intake: Oral 120 Output: Urine 600 1550 300 Uretheral (Tabares) 600 Other: Voiding Method Indwelling Catheter Indwelling Catheter Indwelling Catheter - Labs CBC & Chem 7: 11/18/22 07:15 11/17/22 12:07 Labs: Abnormal Lab Results - Last 24 Hours (Table) 11/17/22 11/17/22 11/17/22 Range/Units 12:07 12:07 12:07 RBC 3.18 L (4.30-5.90) m/uL Hgb 9.9 L (13.0-17.5) gm/dL Hct 30.9 L (39.0-53.0) % Lymphocytes # (1.0-4.8) k/uL Lymphocytes # (Manual) 0.45 L (1.0-4.8) k/uL Metamyelocytes # (Man) (0) k/uL Myelocytes # (Manual) 0.08 H (0) k/uL PT 49.7 H (9.0-12.0) sec INR 5.0 H (<1.2) Sodium 146 H (137-145) mmol/L Potassium 3.4 L (3.5-5.1) mmol/L Chloride 123 H (98-107) mmol/L Carbon Dioxide 19 L (22-30) mmol/L BUN 24 H (9-20) mg/dL Glucose 120 H (74-99) mg/dL Calcium 7.1 L (8.4-10.2) mg/dL Total Bilirubin 2.2 H (0.2-1.3) mg/dL AST 60 H (17-59) U/L Total Protein 4.6 L (6.3-8.2) g/dL Albumin 1.7 L (3.5-5.0) g/dL 11/17/22 11/18/22 11/18/22 Range/Units 16:36 07:15 07:15 RBC 3.31 L 3.17 L (4.30-5.90) m/uL Hgb 10.4 L 9.8 L (13.0-17.5) gm/dL Hct 32.0 L 30.7 L (39.0-53.0) % Lymphocytes # 0.7 L (1.0-4.8) k/uL Lymphocytes # (Manual) 0.74 L (1.0-4.8) k/uL Metamyelocytes # (Man) 0.08 H (0) k/uL Myelocytes # (Manual) (0) k/uL PT 68.5 H (9.0-12.0) sec INR 6.8 H* (<1.2) Sodium (137-145) mmol/L Potassium (3.5-5.1) mmol/L Chloride (98-107) mmol/L Carbon Dioxide (22-30) mmol/L BUN (9-20) mg/dL Glucose (74-99) mg/dL Calcium (8.4-10.2) mg/dL Total Bilirubin (0.2-1.3) mg/dL AST (17-59) U/L Total Protein (6.3-8.2) g/dL Albumin (3.5-5.0) g/dL Microbiology - Last 24 Hours (Table) 11/15/22 07:00 Blood Culture Gram Stain - Final Blood Blood Culture - Final Staphylococcus aureus 11/14/22 21:14 Blood Culture Gram Stain - Final Blood Blood Culture - Final Staphylococcus aureus Assessment and Plan Plan: Assessment: 1. Acute kidney injury secondary to ATN secondary to hypotension and urinary retention. Resolved. 2. Staph aureus and enterococcus UTI and staph bacteremia on antibiotics. ID following. 3. Urinary retention. On Flomax. Has Tabares catheter. 4. Hypernatremia from lack of oral water intake. On D5W. 5. Hypokalemia from poor intake. Rule out magnesium deficiency. Plan: Maintain D5W. Follow-up morning labs. Check magnesium level. Follow-up echocardiogram.
[2022-11-18 13:25] LABS: African American GFR (CKD) 85 (>60 ml/min/1.73 sqM); Anion Gap 4 mmol/L; Blood Urea Nitrogen 27 mg/dL (9-20); Calcium 6.9 mg/dL (8.4-10.2); Carbon Dioxide 21 mmol/L (22-30); Chloride 120 mmol/L (98-107); Glucose 115 mg/dL (74-99); Magnesium 2.3 mg/dL (1.6-2.3); Non-African American GFR(CKD) 73 (>60 ml/min/1.73 sqM); Potassium 3.1 mmol/L (3.5-5.1); Sodium 145 mmol/L (137-145)
[2022-11-18] MEDS: POTASSIUM CHLORIDE ER 20 MEQ TAB.ER PO SCH ×2 (13:32→15:39)
[2022-11-18] MEDS: DEXTROSE 5% IN WATER 1,000 ML IV SCH (15:39)
[2022-11-18] MEDS ORDERED: WARFARIN 0.5 MG TAB PO ONE (18:00)
[2022-11-18] MEDS: FINASTERIDE 5 MG TAB PO SCH (20:28)
[2022-11-18] MEDS: TAMSULOSIN 0.4 MG CAP.ER.24H PO SCH (20:28)
[2022-11-18] MEDS: NON FORMULARY DRUG (Simvastatin 20 MG Tab) PO SCH (21:43)
[2022-11-19] MEDS: NAFCILLIN 2 GM in DEXTROSE 5% IN WATER 100 ML IVPB SCH ×12 (03:41→23:25)
[2022-11-19] MEDS: DEXTROSE 5% IN WATER 1,000 ML IV SCH ×2 (05:55→23:33)
--- NOTE | 2022-11-19 06:02 | P.PN ---
Subjective Progress Note Date: 11/18/22 87-year-old patient, brought in from [facility] in the [place]/[facility]. Patient was noted by the nurses to have decreased mental status. 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 Was found to be more lethargic and difficult to arouse at times. EKG was paced rhythm. Initial blood pressure was 73/44. Pulse of 91. Pulse ox of 97%. Repeat blood pressure was 86/40. Patient himself is not able to give any much history. found a significant bruise in the left side of the body especially the flank going over the thigh. Patient is not sure if he hada fall. Patient not a good historian. Can only answer some simple questions. Nonambulatory. Weak in both the shoulders. Pain in the shoulder. Has a Tabares catheter with some blood in there. 11/11. Patient seen and examined. Patient is alert to self and person. Family at the bedside. 11/12. Patient seen and examined. Hemoglobin this morning is 9.8, sodium 142, potassium 3.7, BUN 5, crit 26 11/13. Patient seen and examined. Still is confused. Does not look in acute distress 11/14. Patient seen and examined. Patient is alert, sodium level this morning is 149, potassium is 2.8. Patient resumed back on Coumadin per vascular surgery 11/15. Patient seen and examined with hemoglobin this morning is 10.5, sodium is 149, potassium is 3.2, BUN is 27, creatinine 0.59,. Patient continues to have poor appetite, discussed with patient's and daughter regarding alternative form of nutrition, 11/16. Patient seen and examined. Labs done this morning, sodium 148, potassium 3.3, BUN 22, creatinine 0.53, glucose 124. Family at the bedside, states he is doing better today 11/17. Patient seen and examined. Sodium this morning is 146, potassium 3.4, BUN 24, creatinine 0.75. INR was 5 11/18/2022 Patient seen and evaluated and follow-up lethargic although arousable. Patient's INR elevated at 6.8 and will give a dose of vitamin K and recommend holding Coumadin. Multiple medical consultations following including infectious disease and patient is maintained on IV antibiotics for MSSA bacteremia and will continue nafcillin. 2-D echo has been ordered and pending read at this time. Culture showing staph aureus and will discuss further with infectious disease about antibiotic treatment for discharge. Patient is currently afebrile with no reported chest pain or shortness of breath. Dietitian following recommending speech evaluation as patient was cheeking foods and is high risk for aspiration. Recommend aspiration precautions. PHYSICAL EXAMINATION: GENERAL: The patient is alert and oriented x1, not in any acute distress. Well developed, appears ill and elderly HEENT: Pupils are round and equally reacting to light. EOMI. No scleral icterus. No conjunctival pallor. Normocephalic, atraumatic. No pharyngeal erythema. No thyromegaly. CARDIOVASCULAR: S1 and S2 muffled PULMONARY: Diminished breath sounds bilaterally to auscultation, no wheezing or crackles. Coarse rhonchi noted. ABDOMEN: Soft, thin, nontender, nondistended, normoactive bowel sounds. No palpable organomegaly. MUSCULOSKELETAL: No joint swelling or deformity. EXTREMITIES: 1Plus pitting edema lower extremities bilaterally NEUROLOGICAL: Gross neurological examination did not reveal any focal deficits. Diffusely weak SKIN: Left sided bruising seen over the belly area Assessment: Acute urinary tract infection with bacteremia with staph aureus, present on admission Urinary retention requiring indwelling Tabares catheter Acute kidney injury, acute tubular necrosis, improving Acute metabolic encephalopathy possibly secondary to UTI Coumadin toxicity. 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 Currently Rate controlled. Chronic medical debility Hypotension, resolved GERD BPH History of Bilateral chronic rotator cuff arthropathy. Possible chronic stress fracture left acromion from the ongoing glenohumeral joint instability. Moderate bilateral AC joint OA. GI prophylaxis DVT prophylaxis No code Plan: Recommend continue with current medications and management with multiple medical consultations following. Infectious disease following an culture showing MSSA bacteremia staph aureus. Awaiting repeat blood cultures for clearance of bacteremia Recommend continue with indwelling Tabares catheter and nephrology following as well Patient is high risk for aspiration and would recommend aspiration precautions with head of the bed elevated 30-45 at all times and supervision with meals Speech therapy consulted as dietitian feels patient is pocketing foods and will await evaluation. Recommend repeat labs in the a.m. Plans are for going to ECF once cleared by consultations in stabilized Vascular surgery has evaluated the patient recommending resuming Coumadin although INR is 6.8 today and will give a dose of vitamin K and follow-up with repeat labs Patient with significant comorbidities The impression and plan of care has been dictated by Michelle Nash, Nurse Practitioner as directed. Dr. Yonathan MD I have performed a history and examination and MDM of this patient, discussed the same with the dictator, and agree with the dictator's assessment and plan as written ,documented as a scribe. Based on total visit time, I have performed more than 50% of the visit. Objective - Vital Signs Vital signs: Vital Signs Temp 98.7 F 11/18/22 04:15 Pulse 95 11/18/22 04:15 Resp 16 11/18/22 04:15 BP 112/65 11/18/22 04:15 Pulse Ox 96 11/18/22 04:15 FiO2 21 11/12/22 07:49 Intake & Output 11/17/22 11/18/22 11/18/22 18:59 06:59 18:59 Output Total 600 1550 Balance -600 -1550 Output: Urine 600 1550 Uretheral (Tabares) 600 Other: Voiding Method Indwelling Catheter Indwelling Catheter - Labs CBC & Chem 7: 11/18/22 07:15 11/18/22 07:15 Labs: Abnormal Lab Results - Last 24 Hours (Table) 11/17/22 11/17/22 11/17/22 Range/Units 12:07 12:07 12:07 RBC 3.18 L (4.30-5.90) m/uL Hgb 9.9 L (13.0-17.5) gm/dL Hct 30.9 L (39.0-53.0) % Lymphocytes # (1.0-4.8) k/uL Lymphocytes # (Manual) 0.45 L (1.0-4.8) k/uL Metamyelocytes # (Man) (0) k/uL Myelocytes # (Manual) 0.08 H (0) k/uL PT 49.7 H (9.0-12.0) sec INR 5.0 H (<1.2) Sodium 146 H (137-145) mmol/L Potassium 3.4 L (3.5-5.1) mmol/L Chloride 123 H (98-107) mmol/L Carbon Dioxide 19 L (22-30) mmol/L BUN 24 H (9-20) mg/dL Glucose 120 H (74-99) mg/dL Calcium 7.1 L (8.4-10.2) mg/dL Total Bilirubin 2.2 H (0.2-1.3) mg/dL AST 60 H (17-59) U/L Total Protein 4.6 L (6.3-8.2) g/dL Albumin 1.7 L (3.5-5.0) g/dL 11/17/22 11/18/22 11/18/22 Range/Units 16:36 07:15 07:15 RBC 3.31 L 3.17 L (4.30-5.90) m/uL Hgb 10.4 L 9.8 L (13.0-17.5) gm/dL Hct 32.0 L 30.7 L (39.0-53.0) % Lymphocytes # 0.7 L (1.0-4.8) k/uL Lymphocytes # (Manual) 0.74 L (1.0-4.8) k/uL Metamyelocytes # (Man) 0.08 H (0) k/uL Myelocytes # (Manual) (0) k/uL PT 68.5 H (9.0-12.0) sec INR 6.8 H* (<1.2) Sodium (137-145) mmol/L Potassium (3.5-5.1) mmol/L Chloride (98-107) mmol/L Carbon Dioxide (22-30) mmol/L BUN (9-20) mg/dL Glucose (74-99) mg/dL Calcium (8.4-10.2) mg/dL Total Bilirubin (0.2-1.3) mg/dL AST (17-59) U/L Total Protein (6.3-8.2) g/dL Albumin (3.5-5.0) g/dL Microbiology - Last 24 Hours (Table) 11/15/22 07:00 Blood Culture Gram Stain - Final Blood Blood Culture - Final Staphylococcus aureus 11/14/22 21:14 Blood Culture Gram Stain - Final Blood Blood Culture - Final Staphylococcus aureus
--- NOTE | 2022-11-19 07:17 | P.PN ---
Subjective Progress Note Date: 11/18/22 Principal diagnosis: Urinary tract infection patient is a 87-year-old male half-way resident patient was sent to the ER for evaluation of patient being more lethargic than normal and there was concern for possible infection, patient did have elevated white count ad mission and he did spike a fever positive UA concerning for UTI and also have extensive bruising to the left groin and lower abdominal area being monitored by the vascular team and consult for possible pseudoaneurysm. On today's evaluation that is 11/18/2022 patient continues to be afebrile and has a patient is breathing comfortably on room air , the patient is awake and alert today patient denies any chest pain or cough no abdominal pain and no diarrhea has been reported by the nursing staff Objective - Vital Signs Vital signs: Vital Signs Temp 98 F 11/18/22 08:00 Pulse 100 11/18/22 08:00 Resp 18 11/18/22 08:00 BP 106/65 11/18/22 08:00 Pulse Ox 97 11/18/22 08:00 FiO2 21 11/12/22 07:49 Intake & Output 11/17/22 11/18/22 11/18/22 18:59 06:59 18:59 Intake Total 120 Output Total 600 1550 300 Balance -600 -1550 -180 Intake: Oral 120 Output: Urine 600 1550 300 Uretheral (Tabares) 600 Other: Voiding Method Indwelling Catheter Indwelling Catheter Indwelling Catheter - Exam GENERAL DESCRIPTION: An elderly male lying in bed in no distress RESPIRATORY SYSTEM: Unlabored breathing , decreased breath sounds at bases HEART: S1 S2 regular rate and rhythm , ABDOMEN: Soft , no tenderness EXTREMITIES: Extensive bruising to the left lateral thigh and lower abdominal area no redness - Labs CBC & Chem 7: 11/18/22 07:15 11/18/22 07:15 Labs: Abnormal Lab Results - Last 24 Hours (Table) 11/17/22 11/17/22 11/17/22 Range/Units 12:07 12:07 12:07 RBC 3.18 L (4.30-5.90) m/uL Hgb 9.9 L (13.0-17.5) gm/dL Hct 30.9 L (39.0-53.0) % Lymphocytes # (1.0-4.8) k/uL Lymphocytes # (Manual) 0.45 L (1.0-4.8) k/uL Metamyelocytes # (Man) (0) k/uL Myelocytes # (Manual) 0.08 H (0) k/uL PT 49.7 H (9.0-12.0) sec INR 5.0 H (<1.2) Sodium 146 H (137-145) mmol/L Potassium 3.4 L (3.5-5.1) mmol/L Chloride 123 H (98-107) mmol/L Carbon Dioxide 19 L (22-30) mmol/L BUN 24 H (9-20) mg/dL Glucose 120 H (74-99) mg/dL Calcium 7.1 L (8.4-10.2) mg/dL Total Bilirubin 2.2 H (0.2-1.3) mg/dL AST 60 H (17-59) U/L Total Protein 4.6 L (6.3-8.2) g/dL Albumin 1.7 L (3.5-5.0) g/dL 11/17/22 11/18/22 11/18/22 Range/Units 16:36 07:15 07:15 RBC 3.31 L 3.17 L (4.30-5.90) m/uL Hgb 10.4 L 9.8 L (13.0-17.5) gm/dL Hct 32.0 L 30.7 L (39.0-53.0) % Lymphocytes # 0.7 L (1.0-4.8) k/uL Lymphocytes # (Manual) 0.74 L (1.0-4.8) k/uL Metamyelocytes # (Man) 0.08 H (0) k/uL Myelocytes # (Manual) (0) k/uL PT 68.5 H (9.0-12.0) sec INR 6.8 H* (<1.2) Sodium (137-145) mmol/L Potassium (3.5-5.1) mmol/L Chloride (98-107) mmol/L Carbon Dioxide (22-30) mmol/L BUN (9-20) mg/dL Glucose (74-99) mg/dL Calcium (8.4-10.2) mg/dL Total Bilirubin (0.2-1.3) mg/dL AST (17-59) U/L Total Protein (6.3-8.2) g/dL Albumin (3.5-5.0) g/dL Microbiology - Last 24 Hours (Table) 11/15/22 07:00 Blood Culture Gram Stain - Final Blood Blood Culture - Final Staphylococcus aureus 11/14/22 21:14 Blood Culture Gram Stain - Final Blood Blood Culture - Final Staphylococcus aureus Assessment and Plan (1) Fever Current Visit: Yes Status: Acute Code(s): R50.9 - FEVER, UNSPECIFIED SNOMED Code(s): 050975646 (2) Urinary tract infection Current Visit: Yes Status: Acute Code(s): N39.0 - URINARY TRACT INFECTION, SITE NOT SPECIFIED SNOMED Code(s): 84842888 (3) Bacteremia due to methicillin susceptible Staphylococcus aureus (MSSA) Current Visit: Yes Status: Acute Code(s): R78.81 - BACTEREMIA; B95.61 - METHICILLIN SUSCEP STAPH INFCT CAUSING DIS CLASSD ELSWHR SNOMED Code(s): 897621265 Plan: Patient presented to the hospital with weakness noticed to have positive UA now with evidence of MSSA bacteremia possible urinary source, blood culture has been repeated to document clearance of bacteremia seeded abdominal pelvis did not show any obstructive uropathy or abscess 2-patient did have evidence of persistent bacteremia concerning for possible endovascular source echocardiogram has been taken on 11/16/2022 however report is still pending 3- blood cultures repeat are currently pending to document clearance of his bacteremia 4Continue the patient on naficilin and monitor clinical course closely at the bedside questions were answered Time with Patient: Less than 30
[2022-11-19] MEDS: METOPROLOL TARTRATE 12.5 MG TAB PO SCH ×2 (08:51→21:07)
[2022-11-19] MEDS: CHOLECALCIFEROL 25 MCG (1000 IU) TABLET PO SCH (08:51)
[2022-11-19] MEDS: ASPIRIN 81 MG PO SCH (08:51)
[2022-11-19] MEDS: FAMOTIDINE 20 MG TAB PO SCH (08:51)
[2022-11-19] MEDS: risperiDONE 0.25 MG TAB PO SCH ×2 (08:52→21:07)
[2022-11-19 10:06] LABS: Basophils % (A) 0 %; Eosinophils # (A) 0.1 k/uL (0-0.7); Eosinophils % (A) 1 %; HCT 32.1 % (39.0-53.0); HGB 10.4 gm/dL (13.0-17.5); Hypochromasia Moderate; Lymphocytes # (A) 0.7 k/uL (1.0-4.8); Lymphocytes % (A) 9 %; MCH 31.2 pg (25.0-35.0); MCHC 32.5 g/dL (31.0-37.0); MCV 96.3 fL (80.0-100.0); Monocytes # (A) 0.2 k/uL (0-1.0); Monocytes % (A) 2 %; Neutrophils # (A) 7.2 k/uL (1.3-7.7); Neutrophils % (A) 88 %; Platelet Count 252 k/uL (150-450); RBC 3.33 m/uL (4.30-5.90); RDW 14.9 % (11.5-15.5); WBC 8.2 k/uL (3.8-10.6)
[2022-11-19 10:09] LABS: INR 1.5 (<1.2)
[2022-11-19 10:23] LABS: African American GFR (CKD) 69 (>60 ml/min/1.73 sqM); Anion Gap 6 mmol/L; Blood Urea Nitrogen 28 mg/dL (9-20); Carbon Dioxide 20 mmol/L (22-30); Chloride 118 mmol/L (98-107); Glucose 135 mg/dL (74-99); Magnesium 2.3 mg/dL (1.6-2.3); Non-African American GFR(CKD) 60 (>60 ml/min/1.73 sqM); Potassium 3.1 mmol/L (3.5-5.1); Sodium 144 mmol/L (137-145)
--- NOTE | 2022-11-19 10:23 | CA ---
Transthoracic Echo Report Name: Agustín Bryan Age: 87 Gender: M : 1935 Exam Date: 11/18/2022 11:13 Exam Location: [facility] Ht (in): 68 Wt (lb): 190 Ordering Physician: Juan Antonio Malagon MD Attending/Referring Phys: Director Of Web Marketing Marko Hough Procedure CPT: Indications: bacteremia Cardiac Hx: Technical Quality: Technically difficult study Contrast 1: Lumason Total Dose (mL): 5 Contrast 2: Total Dose (mL): MEASUREMENTS (Male / Female) Normal Values 2D ECHO LV Diastolic Diameter PLAX 5.0 cm 4.2 - 5.9 / 3.9 - 5.3 cm LV Systolic Diameter PLAX 3.4 cm IVS Diastolic Thickness 1.0 cm 0.6 - 1.0 / 0.6 - 0.9 cm LVPW Diastolic Thickness 1.1 cm 0.6 - 1.0 / 0.6 - 0.9 cm LV Relative Wall Thickness 0.4 RV Internal Dim ED PLAX 3.0 cm LVOT Diameter 2.5 cm Aortic Root Diameter 3.3 cm LA Systolic Diameter LX 1.9 cm 3.0 - 4.0 / 2.7 - 3.8 cm LV Diastolic Volume MOD 4C 78.3 cm??? LV Systolic Volume MOD 4C 43.4 cm??? LV Ejection Fraction MOD 4C 44.6 % LV Cardiac Index MOD 4C 1615.2 cm???/min???m??? LV Diastolic Length 4C 7.2 cm LV Systolic Length 4C 5.9 cm DOPPLER AV Peak Velocity 125.9 cm/s AV Peak Gradient 6.3 mmHg LVOT Peak Velocity 70.2 cm/s LVOT Peak Gradient 2.0 mmHg AV Area Cont Eq pk 2.7 cm??? MV Peak Velocity 71.4 cm/s MV Peak Gradient 2.0 mmHg MV Mean Velocity 41.3 cm/s MV Mean Gradient 0.8 mmHg MV Velocity Time Integral 25.0 cm Mitral E Point Velocity 61.7 cm/s Mitral A Point Velocity 49.7 cm/s Mitral E to A Ratio 1.2 MV Deceleration Time 317.7 ms MV E' Velocity 3.8 cm/s Mitral E to MV E' Ratio 16.4 TR Peak Velocity 212.9 cm/s TR Peak Gradient 18.1 mmHg Right Ventricular Systolic Press 23.5 mmHg FINDINGS Left Ventricle Normal size and wall thickness. Left ventricular ejection fraction is estimated at 55-60 %. Right Ventricle Normal right ventricular size. RVSP= 29mmhg. Right Atrium Normal right atrial size. Left Atrium Normal left atrial size. Mitral Valve Mild MV calcification.no mitral regurgitation. No mitral stenosis. Aortic Valve Aortic valve not well visualized. Tricuspid Valve Tricuspid valve not well visualized. Trace TR. Pulmonic Valve Pulmonic valve not well visualized. Pericardium Not well visualized. Grossly normal. Aorta Normal size aortic root and proximal ascending aorta. CONCLUSIONS Technically difficult with limited views.lumason ECHO contrast used for improved visualization of the endocardial borders (inadequate visualization of two or more contiguous segments). Normal left ventricle size and systolic function Valvular structures were not well visualized Previewed by: Dr. Andrew Butler MD (Electronically Signed) Final Date: 19 November 2022 10:23
[2022-11-19] MEDS ORDERED: POTASSIUM CHLORIDE ER 20 MEQ TAB.ER PO STA (11:17)
--- NOTE | 2022-11-19 11:17 | P.PN ---
Subjective Patient is seen in follow-up for acute kidney injury and hypernatremia. GFR fairly stable. Sodium level 144 today. Potassium low. Receiving D5W. On dysphagia 3 chopped diet. Blood pressure stable. Nonoliguric. Vital signs are stable. General: No acute distress. HEENT: Head exam is unremarkable. LUNGS: No audible rhonchi or wheezes. HEART: Rate and Rhythm are regular. ABDOMEN: Nontender. EXTREMITITES: No edema. Objective - Vital Signs Vital signs: Vital Signs Temp 97.9 F 11/19/22 08:10 Pulse 91 11/19/22 08:10 Resp 17 11/19/22 08:10 BP 122/64 11/19/22 08:10 Pulse Ox 97 11/19/22 08:10 FiO2 21 11/12/22 07:49 Intake & Output 11/18/22 11/19/22 11/19/22 18:59 06:59 18:59 Intake Total 360 Output Total 650 750 Balance -290 -750 Weight 86.183 kg Intake: Oral 360 Output: Urine 650 750 Other: Voiding Method Indwelling Catheter Indwelling Catheter Indwelling Catheter - Labs CBC & Chem 7: 11/19/22 09:32 11/19/22 09:32 Labs: Abnormal Lab Results - Last 24 Hours (Table) 11/18/22 11/19/22 11/19/22 Range/Units 07:15 09:32 09:32 RBC (4.30-5.90) m/uL Hgb (13.0-17.5) gm/dL Hct (39.0-53.0) % Lymphocytes # (1.0-4.8) k/uL PT 15.0 H (9.0-12.0) sec INR 1.5 H (<1.2) Potassium 3.1 L 3.1 L (3.5-5.1) mmol/L Chloride 120 H 118 H (98-107) mmol/L Carbon Dioxide 21 L 20 L (22-30) mmol/L BUN 27 H 28 H (9-20) mg/dL Glucose 115 H 135 H (74-99) mg/dL Calcium 6.9 L 7.0 L (8.4-10.2) mg/dL 11/19/22 Range/Units 09:32 RBC 3.33 L (4.30-5.90) m/uL Hgb 10.4 L (13.0-17.5) gm/dL Hct 32.1 L (39.0-53.0) % Lymphocytes # 0.7 L (1.0-4.8) k/uL PT (9.0-12.0) sec INR (<1.2) Potassium (3.5-5.1) mmol/L Chloride (98-107) mmol/L Carbon Dioxide (22-30) mmol/L BUN (9-20) mg/dL Glucose (74-99) mg/dL Calcium (8.4-10.2) mg/dL Assessment and Plan Plan: Assessment: 1. Acute kidney injury secondary to ATN secondary to hypotension and urinary retention. Creatinine 1.1 today. 2. Staph aureus and enterococcus UTI and staph bacteremia on antibiotics. ID following. 3. Urinary retention. On Flomax. Has Tabares catheter. 4. Hypernatremia from lack of oral water intake. On D5W. 5. Hypokalemia from poor intake. Magnesium normal. 6. Severe protein calorie malnutrition. Albumin 1.7. Plan: Maintain D5W. Preserved EF noted on echo. 25 g IV albumin 2 doses today. Continue to monitor renal function and urine output. Replace potassium.
[2022-11-19] MEDS ORDERED: ALBUMIN HUMAN 25% 50 ML in EMPTY BAG 1 BAG IVPB SCH (11:30)
--- NOTE | 2022-11-19 13:53 | P.PN ---
Subjective Progress Note Date: 11/19/22 Principal diagnosis: Urinary tract infection patient is a 87-year-old male skilled nursing resident patient was sent to the ER for evaluation of patient being more lethargic than normal and there was concern for possible infection, patient did have elevated white count ad mission and he did spike a fever positive UA concerning for UTI and also have extensive bruising to the left groin and lower abdominal area being monitored by the vascular team and consult for possible pseudoaneurysm. On today's evaluation that is 11/19/2022 patient remains to be afebrile and has a patient is breathing comfortably on room air , the patient denies any chest pain or cough no abdominal pain and no diarrhea has been reported by the nursing staff Objective - Vital Signs Vital signs: Vital Signs Temp 97.9 F 11/19/22 08:10 Pulse 91 11/19/22 08:10 Resp 17 11/19/22 08:10 BP 122/64 11/19/22 08:10 Pulse Ox 97 11/19/22 08:10 FiO2 21 11/12/22 07:49 Intake & Output 11/18/22 11/19/22 11/19/22 18:59 06:59 18:59 Intake Total 360 Output Total 650 750 300 Balance -290 -750 -300 Weight 86.183 kg Intake: Oral 360 Output: Urine 650 750 300 Other: Voiding Method Indwelling Catheter Indwelling Catheter Indwelling Catheter - Exam GENERAL DESCRIPTION: An elderly male lying in bed in no distress RESPIRATORY SYSTEM: Unlabored breathing , decreased breath sounds at bases HEART: S1 S2 regular rate and rhythm , ABDOMEN: Soft , no tenderness EXTREMITIES: Extensive bruising to the left lateral thigh and lower abdominal area no redness - Labs CBC & Chem 7: 11/19/22 09:32 11/19/22 09:32 Labs: Abnormal Lab Results - Last 24 Hours (Table) 11/18/22 11/19/22 11/19/22 Range/Units 07:15 09:32 09:32 RBC (4.30-5.90) m/uL Hgb (13.0-17.5) gm/dL Hct (39.0-53.0) % Lymphocytes # (1.0-4.8) k/uL PT 15.0 H (9.0-12.0) sec INR 1.5 H (<1.2) Potassium 3.1 L 3.1 L (3.5-5.1) mmol/L Chloride 120 H 118 H (98-107) mmol/L Carbon Dioxide 21 L 20 L (22-30) mmol/L BUN 27 H 28 H (9-20) mg/dL Glucose 115 H 135 H (74-99) mg/dL Calcium 6.9 L 7.0 L (8.4-10.2) mg/dL 11/19/22 Range/Units 09:32 RBC 3.33 L (4.30-5.90) m/uL Hgb 10.4 L (13.0-17.5) gm/dL Hct 32.1 L (39.0-53.0) % Lymphocytes # 0.7 L (1.0-4.8) k/uL PT (9.0-12.0) sec INR (<1.2) Potassium (3.5-5.1) mmol/L Chloride (98-107) mmol/L Carbon Dioxide (22-30) mmol/L BUN (9-20) mg/dL Glucose (74-99) mg/dL Calcium (8.4-10.2) mg/dL Assessment and Plan (1) Fever Current Visit: Yes Status: Acute Code(s): R50.9 - FEVER, UNSPECIFIED SNOMED Code(s): 569203717 (2) Urinary tract infection Current Visit: Yes Status: Acute Code(s): N39.0 - URINARY TRACT INFECTION, SITE NOT SPECIFIED SNOMED Code(s): 49555698 (3) Bacteremia due to methicillin susceptible Staphylococcus aureus (MSSA) Current Visit: Yes Status: Acute Code(s): R78.81 - BACTEREMIA; B95.61 - METHICILLIN SUSCEP STAPH INFCT CAUSING DIS CLASSD ELSWHR SNOMED Code(s): 157327182 Plan: Patient presented to the hospital with weakness noticed to have positive UA now with evidence of MSSA bacteremia possible urinary source, blood culture has been repeated to document clearance of bacteremia seeded abdominal pelvis did not show any obstructive uropathy or abscess 2-patient did have evidence of persistent bacteremia concerning for possible endovascular source echocardiogram has been taken on 11/16/2022 report dimension and no adequate visualization of the cardiac valves and we will go ahead and ordered cardiology consultation for TB 3- blood cultures repeat are currently pending 4we will Continue the patient on naficilin and monitor clinical course closely Time with Patient: Less than 30
[2022-11-19] MEDS: ALBUMIN HUMAN 25% 50 ML in EMPTY BAG 1 BAG IVPB SCH ×3 (13:55→23:23)
[2022-11-19] MEDS ORDERED: Potassium Replacement Protocol 1 EACH MISC MISCELLANE PRN (17:34)
[2022-11-19] MEDS ORDERED: WARFARIN 1 MG TAB PO ONE (18:00)
[2022-11-19] MEDS: POTASSIUM CHLORIDE 10 MEQ in WATER FOR INJECTION 1 100ML.BAG IVPB SCH ×4 (18:24→22:16)
[2022-11-19] MEDS: NON FORMULARY DRUG (Simvastatin 20 MG Tab) PO SCH (19:54)
[2022-11-19] MEDS: FINASTERIDE 5 MG TAB PO SCH (21:07)
[2022-11-19] MEDS: TAMSULOSIN 0.4 MG CAP.ER.24H PO SCH (21:07)
[2022-11-20] MEDS: ALBUMIN HUMAN 25% 50 ML in EMPTY BAG 1 BAG IVPB SCH (01:27)
[2022-11-20] MEDS: DEXTROSE 5% IN WATER 1,000 ML IV SCH ×2 (04:14→20:35)
[2022-11-20] MEDS: NAFCILLIN 2 GM in DEXTROSE 5% IN WATER 100 ML IVPB SCH ×12 (04:18→23:25)
--- NOTE | 2022-11-20 05:47 | P.PN ---
Subjective Progress Note Date: 11/19/22 87-year-old patient, brought in from [facility] in the [place]. Patient was noted by the nurses to have decreased mental status. 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 Was found to be more lethargic and difficult to arouse at times. EKG was paced rhythm. Initial blood pressure was 73/44. Pulse of 91. Pulse ox of 97%. Repeat blood pressure was 86/40. Patient himself is not able to give any much history. found a significant bruise in the left side of the body especially the flank going over the thigh. Patient is not sure if he hada fall. Patient not a good historian. Can only answer some simple questions. Nonambulatory. Weak in both the shoulders. Pain in the shoulder. Has a Tabares catheter with some blood in there. 11/11. Patient seen and examined. Patient is alert to self and person. Family at the bedside. 11/12. Patient seen and examined. Hemoglobin this morning is 9.8, sodium 142, potassium 3.7, BUN 5, crit 26 11/13. Patient seen and examined. Still is confused. Does not look in acute distress 11/14. Patient seen and examined. Patient is alert, sodium level this morning is 149, potassium is 2.8. Patient resumed back on Coumadin per vascular surgery 11/15. Patient seen and examined with hemoglobin this morning is 10.5, sodium is 149, potassium is 3.2, BUN is 27, creatinine 0.59,. Patient continues to have poor appetite, discussed with patient's and daughter regarding alternative form of nutrition, 11/16. Patient seen and examined. Labs done this morning, sodium 148, potassium 3.3, BUN 22, creatinine 0.53, glucose 124. Family at the bedside, states he is doing better today 11/17. Patient seen and examined. Sodium this morning is 146, potassium 3.4, BUN 24, creatinine 0.75. INR was 5 11/18/2022 Patient seen and evaluated and follow-up lethargic although arousable. Patient's INR elevated at 6.8 and will give a dose of vitamin K and recommend holding Coumadin. Multiple medical consultations following including infectious disease and patient is maintained on IV antibiotics for MSSA bacteremia and will continue nafcillin. 2-D echo has been ordered and pending read at this time. Culture showing staph aureus and will discuss further with infectious disease about antibiotic treatment for discharge. Patient is currently afebrile with no reported chest pain or shortness of breath. Dietitian following recommending speech evaluation as patient was cheeking foods and is high risk for aspiration. Recommend aspiration precautions. 11/19/2022 Patient is seen in follow-up today with no acute overnight issues noted. Patient oral intake is poor although was able to take all medications including and swallow with no difficulty. Patient was seen and evaluated by speech recommend continue dysphagia diet and aspiration precautions. Patient has no real desire to eat and has advanced dementia. No plans for tube feedings as patient is not a good candidate and risks outweigh the benefits. Patient is maintained on antibiotics with infectious disease following an repeat blood cultures thus far have been negative for 24 hours. 2-D echo not really able to visualize and cardiology has been consulted. Plan is for returning to [facility] once stabilized and discharged from consultations. Patient is afebrile and denies any chest pain or shortness of breath. Potassium low and being replaced per protocol and nephrology is following as well. Repeat INR improved after vitamin K and will resume Coumadin pharmacy to dose. Review of systems: unable to completely assess as patient is confused PHYSICAL EXAMINATION: GENERAL: The patient is alert and oriented x1, not in any acute distress. Well developed, appears ill and elderly HEENT: Pupils are round and equally reacting to light. EOMI. No scleral icterus. No conjunctival pallor. Normocephalic, atraumatic. No pharyngeal erythema. No thyromegaly. CARDIOVASCULAR: S1 and S2 muffled PULMONARY: Diminished breath sounds bilaterally to auscultation, no wheezing or crackles. Coarse rhonchi noted. ABDOMEN: Soft, thin, nontender, nondistended, normoactive bowel sounds. No palpable organomegaly. MUSCULOSKELETAL: No joint swelling or deformity. EXTREMITIES: 1Plus pitting edema lower extremities bilaterally NEUROLOGICAL: Gross neurological examination did not reveal any focal deficits. Diffusely weak SKIN: Left sided bruising seen over the belly area Assessment: Acute urinary tract infection with bacteremia with staph aureus, present on admi ssion Urinary retention requiring indwelling Tabares catheter Acute kidney injury, acute tubular necrosis, improving Acute metabolic encephalopathy possibly secondary to UTI Coumadin toxicity. 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 Currently Rate controlled. Chronic medical debility Hypotension, resolved GERD BPH History of Bilateral chronic rotator cuff arthropathy. Possible chronic stress fracture left acromion from the ongoing glenohumeral joint instability. Moderate bilateral AC joint OA. GI prophylaxis DVT prophylaxis No code Plan: Recommend continue with current medications and management with multiple medical consultations following. Infectious disease following as culture showing MSSA bacteremia staph aureus. Repeat blood cultures 2 thus far negative for 24 hours. 2-D echo is hard to visualize and infectious disease recommending cardiology consultation for possible PIETRO Recommend continue with indwelling Tabares catheter and nephrology following as well Potassium at 3.0 and recommend replace electrolytes per protocol. Recommend follow-up labs in a.m. Patient is high risk for aspiration and would recommend aspiration precautions with head of the bed elevated 30-45 at all times and supervision with meals Speech therapy evaluated the patient recommending to continue with current diet Plans are for going back to [facility] once cleared by consultations in stabilized Vascular surgery has evaluated the patient recommending resuming Coumadin. Repeat INR today is just above 1 and will resume Coumadin with pharmacy to dose Patient with significant comorbidities and overall poor prognosis The impression and plan of care has been dictated by Michelle Nash, Nurse Practitioner as directed. Dr. Yonathan MD I have performed a history and examination and MDM of this patient, discussed the same with the dictator, and agree with the dictator's assessment and plan as written ,documented as a scribe. Based on total visit time, I have performed more than 50% of the visit. Objective - Vital Signs Vital signs: Vital Signs Temp 97.8 F 11/20/22 03:55 Pulse 85 11/20/22 03:55 Resp 17 11/19/22 16:00 BP 132/69 11/20/22 03:55 Pulse Ox 98 11/20/22 03:55 FiO2 21 11/12/22 07:49 Intake & Output 11/19/22 11/19/22 11/20/22 06:59 18:59 06:59 Output Total 750 450 600 Balance -750 -450 -600 Output: Urine 750 450 600 Other: Voiding Method Indwelling Catheter Indwelling Catheter Indwelling Catheter - Labs CBC & Chem 7: 11/19/22 09:32 11/19/22 09:32 Labs: Abnormal Lab Results - Last 24 Hours (Table) 11/19/22 11/19/22 11/19/22 Range/Units 09:32 09:32 09:32 RBC 3.33 L (4.30-5.90) m/uL Hgb 10.4 L (13.0-17.5) gm/dL Hct 32.1 L (39.0-53.0) % Lymphocytes # 0.7 L (1.0-4.8) k/uL PT 15.0 H (9.0-12.0) sec INR 1.5 H (<1.2) Potassium 3.1 L (3.5-5.1) mmol/L Chloride 118 H (98-107) mmol/L Carbon Dioxide 20 L (22-30) mmol/L BUN 28 H (9-20) mg/dL Glucose 135 H (74-99) mg/dL Calcium 7.0 L (8.4-10.2) mg/dL Microbiology - Last 24 Hours (Table) 11/18/22 07:26 Blood Culture - Preliminary Blood 11/17/22 12:07 Blood Culture - Preliminary Blood
[2022-11-20 08:37] LABS: African American GFR (CKD) 77 (>60 ml/min/1.73 sqM); Anion Gap 7 mmol/L; Blood Urea Nitrogen 26 mg/dL (9-20); Calcium 6.9 mg/dL (8.4-10.2); Carbon Dioxide 21 mmol/L (22-30); Chloride 116 mmol/L (98-107); Glucose 108 mg/dL (74-99); Non-African American GFR(CKD) 67 (>60 ml/min/1.73 sqM); Sodium 144 mmol/L (137-145)
[2022-11-20 08:52] LABS: INR 1.2 (<1.2); Prothrombin Time 12.5 sec (9.0-12.0)
[2022-11-20] MEDS ORDERED: fentaNYL (PF) 50 MCG/ML 2 ML AMP ONE (11:38)
[2022-11-20] MEDS ORDERED: Potassium Replacement Protocol 1 EACH MISC MISCELLANE PRN (11:44)
[2022-11-20] MEDS ORDERED: IV FLUID CONTINUATION 500 ML IV ONE (11:47)
[2022-11-20] MEDS: BENZOCAINE SPRAY 1 CAN TOPICAL ONE ×2 (11:55→12:05)
[2022-11-20] MEDS ORDERED: MIDAZOLAM 2 MG/2 ML VIAL IVP ONE (12:05)
[2022-11-20] MEDS ORDERED: fentaNYL (PF) 50 MCG/ML 2 ML AMP IVP ONE (12:05)
--- NOTE | 2022-11-20 12:06 | P.PN ---
Subjective Patient is seen in follow-up for acute kidney injury and hypernatremia. GFR fairly stable. Sodium level stable at 144 today. Potassium low. Receiving D5W. On dysphagia 3 chopped diet. Blood pressure stable. Nonoliguric. Family present at bedside. Vital signs are stable. General: No acute distress. Resting in bed. Lethargic. HEENT: Head exam is unremarkable. LUNGS: No audible rhonchi or wheezes. HEART: Rate and Rhythm are regular. ABDOMEN: Nontender. EXTREMITITES: No edema. Objective - Vital Signs Vital signs: Vital Signs Temp 98.5 F 11/20/22 11:30 Pulse 80 11/20/22 11:30 Resp 20 11/20/22 11:30 BP 98/57 11/20/22 11:30 Pulse Ox 97 11/20/22 11:30 FiO2 21 11/12/22 07:49 Intake & Output 11/19/22 11/20/22 11/20/22 18:59 06:59 18:59 Output Total 450 600 Balance -450 -600 Output: Urine 450 600 Other: Voiding Method Indwelling Catheter Indwelling Catheter Indwelling Catheter - Labs CBC & Chem 7: 11/19/22 09:32 11/20/22 07:37 Labs: Abnormal Lab Results - Last 24 Hours (Table) 11/20/22 11/20/22 11/20/22 Range/Units 07:37 07:37 07:37 PT 12.5 H (9.0-12.0) sec INR 1.2 H (<1.2) Potassium 3.0 L (3.5-5.1) mmol/L Chloride 116 H (98-107) mmol/L Carbon Dioxide 21 L (22-30) mmol/L BUN 26 H (9-20) mg/dL Glucose 108 H (74-99) mg/dL Calcium 6.9 L (8.4-10.2) mg/dL Magnesium 2.4 H (1.6-2.3) mg/dL Microbiology - Last 24 Hours (Table) 11/18/22 07:26 Blood Culture - Preliminary Blood 11/17/22 12:07 Blood Culture - Preliminary Blood Assessment and Plan Plan: Assessment: 1. Acute kidney injury secondary to ATN secondary to hypotension and urinary retention. Creatinine 1.0 today. 2. Staph aureus and enterococcus UTI and staph bacteremia on antibiotics. ID following. 3. Urinary retention. On Flomax. Has Tabares catheter. 4. Hypernatremia from lack of oral water intake. On D5W. 5. Hypokalemia from poor intake. Magnesium normal. 6. Severe protein calorie malnutrition. Albumin 1.7. Status post IV albumin given 11/19/2022. Plan: Maintain D5W. Preserved EF noted on echo. Continue to monitor renal function and urine output. Replace potassium.
--- NOTE | 2022-11-20 12:27 | P.PCN ---
Date of Procedure: 11/20/22 Description of Procedure: Indication: Bacteremia Procedure Description: After explaining the procedure to the patient, it's risk and complications, blood pressure, heart rate and O2 saturation were monitored. The throat was sprayed with Cetacaine. Patient received 1 mg intravenous Versed, 25 mcg intravenous fentanyl. The probe was introduced into the esophagus without difficulty. Images were obtained. Following that, the probe was removed. There was no immediate complication. Findings: Left atrial size is normal, left ventricular size and systolic function are normal. Left atrial appendage is normal. Aortic valve revealed mild fibrocalcific changes with preserved opening, mitral valve revealed mild calcification. The tricuspid and pulmonic valve are normal. Descending thoracic aorta appears to be normal with mild atherosclerotic changes. No pericardial effusion was noted. Contrast bubble study revealed no shunting across the intra-atrial septum. Doppler: Pulse wave and color Doppler were obtained, an revealed mild to moderate tricuspid with mild aortic, pulmonic and mitral regurgitation. There was no shunting by color Doppler study. Conclusion: 1. Normal left ventricle size and systolic function 2. No evidence of vegetations 3. Mild mitral, aortic and pulmonic regurgitation with [id number] tricuspid regurgitation 4. Normal appearance of the descending thoracic aorta with mild atherosclerotic changes 5. No shunting across the intra-atrial septum Duration of sedation 15 minutes.
[2022-11-20] MEDS: POTASSIUM CHLORIDE 10 MEQ in WATER FOR INJECTION 1 100ML.BAG IVPB SCH ×6 (12:41→20:24)
--- NOTE | 2022-11-20 12:47 | P.PN ---
Subjective HISTORY OF PRESENT ILLNESS: This is an 87-year-old male patient of Dr. Butler with past medical history of permanent atrial fibrillation, permanent pacemaker, hyperlipidemia, coronary artery disease. Patient underwent recent left carotid stent at [facility] was discharged to [facility] subsequently sent to [facility] due to mental status changes. Patient was brought into the hospital due to mental status changes and lethargy was diagnosed with acute metabolic encephalopathy and urinary tract infection as well as he presented with acute kidney injury, Coumadin toxicity with an initial INR 4.7. We have been asked to evaluate the patient for atrial fibrillation. Patient has been off Coumadin since arrival and INR today is at 1.7. Patient remains in atrial fibrillation with rate controlled in the 80s to low 100. Patient denies having any chest pain, shortness of breath, palpitations. Patient is somewhat confused. Patient was also found to have a pseudoaneurysm in the left groin is status post ultrasound-guided injection of thrombin with complete thrombosis. EKG atrial fibrillation with ventricular rate of 85 Chest x-ray: Chronic changes without acute cardiopulmonary process. CAT scan of the abdomen and pelvis revealed left inguinal region soft tissue collection possible hematoma. Mild anasarca and trace pleural effusions. Small right indirect hernia. Bilateral extrarenal pelvises no danyell hydronephrosis. Ultrasound of the left groin revealed left groin pseudoaneurysm measuring 3.9 x 2.0, 2.0. Initial WBC 15.1, now 10.1. Hemoglobin 9.8, platelet count 121. Sodium 142, potassium 3.7, chloride 116, CO2 21, BUN 26 and creatinine 0.71. Blood sugar 119. Troponin 0.037 and 0.0-1. Ammonia level less than 9. C-reactive protein 31.2. Albumin 1.9. Hepatitis panel negative. Blood culture positive for gram- positive cocci in clusters Home cardiac medications: Aspirin 81 mg daily, atenolol 25 mg daily, simvastatin 40 mg at bedtime. Echocardiogram 2018 revealed normal EF, mild MR, mild to moderate AR, mild TR. Wallace catheterization in 2001 revealed minimal coronary artery disease Lexiscan stress test in 2019 revealed normal EF, probably normal study. 11/14 Patient is seen today in follow-up. He remains in atrial fibrillation. Echocardiogram is pending. We did resume Coumadin yesterday as this was cleared by vascular surgery. INR is 2. Heart rate is 103, blood pressure 120/74, pulse ox 90% on room air. Repeat blood work reveals potassium of 2.8, BUN 24 creatinine 0.6. Potassium replacement has been ordered. 11/15 Patient denies having any chest pain or shortness of breath. Repeat blood work reveals uterus 2.8. Patient's been resumed on Coumadin and managed by pharmacy. Sodium 149, potassium 3.2 and repeat 3.5, BUN 27 creatinine 0.59. Patient is waiting for discharge back to [facility]. Echocardiogram performed at [facility] revealed EF of 60-65%, mild AR. 11/20/2022 Cardiology was re-consulted yesterday secondary to persistent bacteremia. PIETRO was requested. Patient examined this morning at the bedside. Patient denies chest pain or pressure. He denies shortness of breath. Vital signs are stable. PHYSICAL EXAM: VITAL SIGNS: Reviewed. GENERAL: Well-developed in no acute distress. NECK: Supple. No JVD or thyromegaly LUNGS: Respirations even and unlabored. Lungs essentially clear to auscultation bilaterally. HEART: Irregular rate and rhythm. S1 and S2 heard. Systolic murmur noted EXTREMITIES: Normal range of motion. No clubbing or cyanosis. Peripheral pulses intact. No lower extremity edema ASSESSMENT: MSSA bacteremia Permanent atrial fibrillation Hypercoagulopathy Hypokalemia Metabolic encephalopathy Acute urinary tract infection Right groin pseudoaneurysm status post thrombin injection Acute kidney injury ATN secondary to hypotension Nonobstructive coronary artery disease Permanent pacemaker Hyperlipidemia PLAN: Continue current cardiac medications Continue antibiotics per infectious disease Patient to undergo PIETRO today with Dr. Butler Nurse practitioner note has been reviewed by physician. Signing provider agrees with the documented findings, assessment, and plan of care. Objective - Vital Signs Vital signs: Vital Signs Temp 98.5 F 11/20/22 11:30 Pulse 83 11/20/22 12:35 Resp 16 11/20/22 12:19 BP 98/52 11/20/22 12:35 Pulse Ox 99 11/20/22 12:35 FiO2 21 11/12/22 07:49 Intake & Output 11/19/22 11/20/22 11/20/22 18:59 06:59 18:59 Intake Total 150 Output Total 450 600 Balance -450 -600 150 Intake: IV 150 Output: Urine 450 600 Other: Voiding Method Indwelling Catheter Indwelling Catheter Indwelling Catheter - Labs CBC & Chem 7: 11/19/22 09:32 11/20/22 07:37 Labs: Abnormal Lab Results - Last 24 Hours (Table) 11/20/22 11/20/22 11/20/22 Range/Units 07:37 07:37 07:37 PT 12.5 H (9.0-12.0) sec INR 1.2 H (<1.2) Potassium 3.0 L (3.5-5.1) mmol/L Chloride 116 H (98-107) mmol/L Carbon Dioxide 21 L (22-30) mmol/L BUN 26 H (9-20) mg/dL Glucose 108 H (74-99) mg/dL Calcium 6.9 L (8.4-10.2) mg/dL Magnesium 2.4 H (1.6-2.3) mg/dL Microbiology - Last 24 Hours (Table) 11/18/22 07:26 Blood Culture - Preliminary Blood 11/17/22 12:07 Blood Culture - Preliminary Blood
[2022-11-20] MEDS: METOPROLOL TARTRATE 12.5 MG TAB PO SCH ×2 (14:05→20:38)
[2022-11-20] MEDS: FAMOTIDINE 20 MG TAB PO SCH (14:05)
[2022-11-20] MEDS: risperiDONE 0.25 MG TAB PO SCH ×2 (14:05→20:38)
[2022-11-20] MEDS: CHOLECALCIFEROL 25 MCG (1000 IU) TABLET PO SCH (14:06)
[2022-11-20] MEDS: ASPIRIN 81 MG PO SCH (14:06)
[2022-11-20] MEDS: SODIUM CHLORIDE 0.9% 1,000 ML IV SCH (17:20)
[2022-11-20] MEDS ORDERED: WARFARIN 1 MG TAB PO ONE (18:00)
[2022-11-20] MEDS: NON FORMULARY DRUG (Simvastatin 20 MG Tab) PO SCH (20:23)
[2022-11-20] MEDS: POTASSIUM CHLORIDE ER 20 MEQ TAB.ER PO SCH (20:38)
[2022-11-20] MEDS: FINASTERIDE 5 MG TAB PO SCH (20:38)
[2022-11-20] MEDS: TAMSULOSIN 0.4 MG CAP.ER.24H PO SCH (20:38)
[2022-11-21] MEDS: NAFCILLIN 2 GM in DEXTROSE 5% IN WATER 100 ML IVPB SCH ×12 (04:19→23:17)
--- NOTE | 2022-11-21 05:57 | P.PN ---
Subjective Progress Note Date: 11/20/22 87-year-old patient, brought in from [facility] in the [place]/[facility]. Patient was noted by the nurses to have decreased mental status. 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 Was found to be more lethargic and difficult to arouse at times. EKG was paced rhythm. Initial blood pressure was 73/44. Pulse of 91. Pulse ox of 97%. Repeat blood pressure was 86/40. Patient himself is not able to give any much history. found a significant bruise in the left side of the body especially the flank going over the thigh. Patient is not sure if he hada fall. Patient not a good historian. Can only answer some simple questions. Nonambulatory. Weak in both the shoulders. Pain in the shoulder. Has a Tabares catheter with some blood in there. 11/11. Patient seen and examined. Patient is alert to self and person. Family at the bedside. 11/12. Patient seen and examined. Hemoglobin this morning is 9.8, sodium 142, potassium 3.7, BUN 5, crit 26 11/13. Patient seen and examined. Still is confused. Does not look in acute distress 11/14. Patient seen and examined. Patient is alert, sodium level this morning is 149, potassium is 2.8. Patient resumed back on Coumadin per vascular surgery 11/15. Patient seen and examined with hemoglobin this morning is 10.5, sodium is 149, potassium is 3.2, BUN is 27, creatinine 0.59,. Patient continues to have poor appetite, discussed with patient's and daughter regarding alternative form of nutrition, 11/16. Patient seen and examined. Labs done this morning, sodium 148, potassium 3.3, BUN 22, creatinine 0.53, glucose 124. Family at the bedside, states he is doing better today 11/17. Patient seen and examined. Sodium this morning is 146, potassium 3.4, BUN 24, creatinine 0.75. INR was 5 11/18/2022 Patient seen and evaluated and follow-up lethargic although arousable. Patient's INR elevated at 6.8 and will give a dose of vitamin K and recommend holding Coumadin. Multiple medical consultations following including infectious disease and patient is maintained on IV antibiotics for MSSA bacteremia and will continue nafcillin. 2-D echo has been ordered and pending read at this time. Culture showing staph aureus and will discuss further with infectious disease about antibiotic treatment for discharge. Patient is currently afebrile with no reported chest pain or shortness of breath. Dietitian following recommending speech evaluation as patient was cheeking foods and is high risk for aspiration. Recommend aspiration precautions. 11/19/2022 Patient is seen in follow-up today with no acute overnight issues noted. Patient oral intake is poor although was able to take all medications including and swallow with no difficulty. Patient was seen and evaluated by speech recommend continue dysphagia diet and aspiration precautions. Patient has no real desire to eat and has advanced dementia. No plans for tube feedings as patient is not a good candidate and risks outweigh the benefits. Patient is maintained on antibiotics with infectious disease following an repeat blood cultures thus far have been negative for 24 hours. 2-D echo not really able to visualize and cardiology has been consulted. Plan is for returning to [facility] once stabilized and discharged from consultations. Patient is afebrile and denies any chest pain or shortness of breath. Potassium low and being replaced per protocol and nephrology is following as well. Repeat INR improved after vitamin K and will resume Coumadin pharmacy to dose. 11/20/2022 Patient is seen in follow-up today and cardiology has been re-consulted with plans for undergoing PIETRO today . Nephrology following as well and patient is being continued on IV antibiotics with infectious disease following. Repeat blood cultures have been negative for 24 hours. INR 1.2 and will continue with Coumadin with pharmacy to dose. Patient is maintained on dysphagia diet would recommend aspiration precautions. Patient is not eating very much and we'll c ontinue to monitor. Potassium 3.0 today and will replace with repeat labs in a daily supplement for potassium. Review of systems: unable to completely assess as patient is confused PHYSICAL EXAMINATION: GENERAL: The patient is alert and oriented x1, not in any acute distress. Well developed, appears ill and elderly HEENT: Pupils are round and equally reacting to light. EOMI. No scleral icterus. No conjunctival pallor. Normocephalic, atraumatic. No pharyngeal erythema. No thyromegaly. CARDIOVASCULAR: S1 and S2 muffled PULMONARY: Diminished breath sounds bilaterally to auscultation, no wheezing or crackles. Coarse rhonchi noted. ABDOMEN: Soft, thin, nontender, nondistended, normoactive bowel sounds. No palpable organomegaly. MUSCULOSKELETAL: No joint swelling or deformity. EXTREMITIES: 1Plus pitting edema lower extremities bilaterally NEUROLOGICAL: Gross neurological examination did not reveal any focal deficits. Diffusely weak SKIN: Left sided bruising seen over the belly area Assessment: Acute urinary tract infection with bacteremia with staph aureus, present on admission Urinary retention requiring indwelling Tabares catheter Hypokalemia Acute kidney injury, acute tubular necrosis, improving Acute metabolic encephalopathy possibly secondary to UTI Coumadin toxicity. 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 Currently Rate controlled. Chronic medical debility Hypotension, resolved GERD BPH History of Bilateral chronic rotator cuff arthropathy. Possible chronic stress fracture left acromion from the ongoing glenohumeral joint instability. Moderate bilateral AC joint OA. GI prophylaxis DVT prophylaxis No code Plan: Patient will continue with current medications and management with multiple medical consultations following. Infectious disease following as culture showing MSSA bacteremia staph aureus. Repeat blood cultures 2 thus far negative for 24 hours. 2-D echo is hard to visualize and infectious disease recommending cardiology to reevaluate for possible PIETRO. PIETRO is scheduled today and currently pending continue with indwelling Tabares catheter and nephrology following as well Potassium at 3.0 and will replace electrolytes per protocol. follow-up labs in a.m. Patient is high risk for aspiration and will continue aspiration precautions with head of the bed elevated 30-45 at all times and supervision with meals Speech therapy evaluated the patient recommending to continue with current diet Plans are for going back to [facility] once cleared by consultations and stabilized Vascular surgery has evaluated the patient recommending resuming Coumadin. Repeat INR today is just above 1 and will resume Coumadin with pharmacy to dose Patient with significant comorbidities and overall poor prognosis The impression and plan of care has been dictated by Michelle Nash, Nurse Practitioner as directed. Dr. Yonathan MD I have performed a history and examination and MDM of this patient, discussed the same with the dictator, and agree with the dictator's assessment and plan as written ,documented as a scribe. Based on total visit time, I have performed more than 50% of the visit. Objective - Vital Signs Vital signs: Vital Signs Temp 99.1 F 11/21/22 04:00 Pulse 94 11/21/22 04:00 Resp 16 11/21/22 04:00 BP 94/52 11/21/22 04:00 Pulse Ox 97 11/21/22 04:00 FiO2 21 11/12/22 07:49 Intake & Output 11/20/22 11/20/22 11/21/22 06:59 18:59 06:59 Intake Total 1640 Output Total 600 200 650 Balance -600 1440 -650 Weight 86.183 kg Intake: IV 150 Intake, IV Titration 740 Amount Dextrose 5% in Water 1, 300 000 ml @ 75 mls/hr IV . [id number] [facility] Rx#:[id number] Nafcillin 2 gm In 100 Dextrose 5% in Water 100 ml @ 50 mls/hr IVPB Q4HR [facility] Rx#:[id number] Potassium Chloride 10 meq 300 In Water For Injection 1 100ml.bag @ 100 mls/hr IVPB Q1HR [facility] Rx#: [id number] Sodium Chloride 0.9% 1, 40 000 ml @ 20 mls/hr IV . Q24H [facility] Rx#:[id number] Oral 0 Tube Feeding 750 Output: Urine 600 200 650 Other: Voiding Method Indwelling Catheter Indwelling Catheter Indwelling Catheter - Labs CBC & Chem 7: 11/19/22 09:32 11/20/22 07:37 Labs: Abnormal Lab Results - Last 24 Hours (Table) 11/20/22 11/20/22 11/20/22 Range/Units 07:37 07:37 07:37 PT 12.5 H (9.0-12.0) sec INR 1.2 H (<1.2) Potassium 3.0 L (3.5-5.1) mmol/L Chloride 116 H (98-107) mmol/L Carbon Dioxide 21 L (22-30) mmol/L BUN 26 H (9-20) mg/dL Glucose 108 H (74-99) mg/dL Calcium 6.9 L (8.4-10.2) mg/dL Magnesium 2.4 H (1.6-2.3) mg/dL Microbiology - Last 24 Hours (Table) 11/19/22 09:32 Blood Culture - Preliminary Blood 11/18/22 07:26 Blood Culture - Preliminary Blood 11/17/22 12:07 Blood Culture - Preliminary Blood
[2022-11-21] MEDS: METOPROLOL TARTRATE 12.5 MG TAB PO SCH ×2 (08:35→21:02)
[2022-11-21] MEDS: ASPIRIN 81 MG PO SCH (08:36)
[2022-11-21] MEDS: CHOLECALCIFEROL 25 MCG (1000 IU) TABLET PO SCH (08:36)
[2022-11-21] MEDS: POTASSIUM CHLORIDE ER 20 MEQ TAB.ER PO SCH ×4 (08:36→21:02)
[2022-11-21] MEDS: FAMOTIDINE 20 MG TAB PO SCH (08:36)
[2022-11-21] MEDS: risperiDONE 0.25 MG TAB PO SCH ×2 (08:37→21:05)
[2022-11-21 10:03] LABS: INR 1.2 (<1.2)
[2022-11-21 10:41] LABS: Potassium 3.3 mmol/L (3.5-5.1)
[2022-11-21 10:42] LABS: African American GFR (CKD) 85 (>60 ml/min/1.73 sqM); Anion Gap 5 mmol/L; Blood Urea Nitrogen 18 mg/dL (9-20); Carbon Dioxide 20 mmol/L (22-30); Chloride 115 mmol/L (98-107); Glucose 102 mg/dL (74-99); Magnesium 2.2 mg/dL (1.6-2.3); Non-African American GFR(CKD) 73 (>60 ml/min/1.73 sqM); Sodium 140 mmol/L (137-145)
--- NOTE | 2022-11-21 12:38 | P.PN ---
Subjective Patient is seen in follow-up for acute kidney injury and hypernatremia. GFR stable. Sodium level 140. Potassium low. Receiving D5W. On dysphagia 3 chopped diet. Oral intake is poor. Blood pressure stable. Nonoliguric. Family present at bedside. Vital signs are stable. General: No acute distress. Resting in bed. HEENT: Head exam is unremarkable. LUNGS: No audible rhonchi or wheezes. HEART: Rate and Rhythm are regular. ABDOMEN: Nontender. EXTREMITITES: No edema. Objective - Vital Signs Vital signs: Vital Signs Temp 98.1 F 11/21/22 12:00 Pulse 92 11/21/22 12:00 Resp 18 11/21/22 12:00 BP 114/51 11/21/22 12:00 Pulse Ox 98 11/21/22 12:00 FiO2 21 11/12/22 07:49 Intake & Output 11/20/22 11/21/22 11/21/22 18:59 06:59 18:59 Intake Total 1640 Output Total 200 650 400 Balance 1440 -650 -400 Weight 86.183 kg Intake: IV 150 Intake, IV Titration 740 Amount Dextrose 5% in Water 1, 300 000 ml @ 75 mls/hr IV . [id number] [facility] Rx#:[id number] Nafcillin 2 gm In 100 Dextrose 5% in Water 100 ml @ 50 mls/hr IVPB Q4HR [facility] Rx#:[id number] Potassium Chloride 10 meq 300 In Water For Injection 1 100ml.bag @ 100 mls/hr IVPB Q1HR [facility] Rx#: [id number] Sodium Chloride 0.9% 1, 40 000 ml @ 20 mls/hr IV . Q24H [facility] Rx#:[id number] Oral 0 Tube Feeding 750 Output: Urine 200 650 400 Other: Voiding Method Indwelling Catheter Indwelling Catheter - Labs CBC & Chem 7: 11/19/22 09:32 11/21/22 09:17 Labs: Abnormal Lab Results - Last 24 Hours (Table) 11/21/22 11/21/22 Range/Units 09:17 09:17 INR 1.2 H (<1.2) Potassium 3.3 L (3.5-5.1) mmol/L Chloride 115 H (98-107) mmol/L Carbon Dioxide 20 L (22-30) mmol/L Glucose 102 H (74-99) mg/dL Calcium 7.0 L (8.4-10.2) mg/dL Microbiology - Last 24 Hours (Table) 11/19/22 09:32 Blood Culture - Preliminary Blood 11/18/22 07:26 Blood Culture - Preliminary Blood 11/17/22 12:07 Blood Culture - Preliminary Blood Assessment and Plan Plan: Assessment: 1. Acute kidney injury secondary to ATN secondary to hypotension and urinary retention. Creatinine 0.93 today. 2. Staph aureus and enterococcus UTI and staph bacteremia on antibiotics. ID following. 3. Urinary retention. On Flomax. Has Tabares catheter. 4. Hypernatremia from lack of oral water intake. On D5W. Better. 5. Hypokalemia from poor intake. Magnesium normal. Being replaced. 6. Severe protein calorie malnutrition. Albumin 1.7. Status post IV albumin given 11/19/2022. Plan: Hep-Lock IV fluids. Encouraged oral intake. Preserved EF noted on echo. Continue to monitor renal function and urine output. PIETRO pending.
--- NOTE | 2022-11-21 14:41 | P.PN ---
Subjective Progress Note Date: 11/20/22 Principal diagnosis: Urinary tract infection patient is a 87-year-old male longterm resident patient was sent to the ER for evaluation of patient being more lethargic than normal and there was concern for possible infection, patient did have elevated white count ad mission and he did spike a fever positive UA concerning for UTI and also have extensive bruising to the left groin and lower abdominal area being monitored by the vascular team and consult for possible pseudoaneurysm. Patient did have a PIETRO that was negative for any vegetation On today's evaluation that is 11/20/2022 patient continue to be afebrile and has a patient is breathing comfortably on room air , the patient denies any chest pain or cough, the patient denies having any nausea no vomiting no abdominal pain and no diarrhea has been reported by the nursing staff Objective - Vital Signs Vital signs: Vital Signs Temp 98.3 F 11/20/22 08:00 Pulse 54 L 11/20/22 08:00 Resp 22 11/20/22 08:00 BP 115/54 11/20/22 08:00 Pulse Ox 98 11/20/22 08:16 FiO2 21 11/12/22 07:49 Intake & Output 11/19/22 11/20/22 11/20/22 18:59 06:59 18:59 Output Total 450 600 Balance -450 -600 Output: Urine 450 600 Other: Voiding Method Indwelling Catheter Indwelling Catheter Indwelling Catheter - Exam GENERAL DESCRIPTION: An elderly male lying in bed in no distress RESPIRATORY SYSTEM: Unlabored breathing , decreased breath sounds at bases HEART: S1 S2 regular rate and rhythm , ABDOMEN: Soft , no tenderness EXTREMITIES: Extensive bruising to the left lateral thigh and lower abdominal area no redness - Labs CBC & Chem 7: 11/19/22 09:32 11/21/22 09:17 Labs: Abnormal Lab Results - Last 24 Hours (Table) 11/20/22 11/20/22 11/20/22 Range/Units 07:37 07:37 07:37 PT 12.5 H (9.0-12.0) sec INR 1.2 H (<1.2) Potassium 3.0 L (3.5-5.1) mmol/L Chloride 116 H (98-107) mmol/L Carbon Dioxide 21 L (22-30) mmol/L BUN 26 H (9-20) mg/dL Glucose 108 H (74-99) mg/dL Calcium 6.9 L (8.4-10.2) mg/dL Magnesium 2.4 H (1.6-2.3) mg/dL Microbiology - Last 24 Hours (Table) 11/18/22 07:26 Blood Culture - Preliminary Blood 11/17/22 12:07 Blood Culture - Preliminary Blood Assessment and Plan (1) Fever Current Visit: Yes Status: Acute Code(s): R50.9 - FEVER, UNSPECIFIED SNOMED Code(s): 341364663 (2) Urinary tract infection Current Visit: Yes Status: Acute Code(s): N39.0 - URINARY TRACT INFECTION, SITE NOT SPECIFIED SNOMED Code(s): 20981882 (3) Bacteremia due to methicillin susceptible Staphylococcus aureus (MSSA) Current Visit: Yes Status: Acute Code(s): R78.81 - BACTEREMIA; B95.61 - METHICILLIN SUSCEP STAPH INFCT CAUSING DIS CLASSD [id number] SNOMED Code(s): 080562583 Plan: Patient presented to the hospital with weakness noticed to have positive UA now with evidence of MSSA bacteremia possible urinary source, blood culture has been repeated to document clearance of bacteremia seeded abdominal pelvis did not show any obstructive uropathy or abscess 2-patient did have evidence of persistent bacteremia concerning for possible endovascular source echocardiogram has been taken on 11/16/2022 report dimension and no adequate visualization of the cardiac valves patient did have a PIETRO that was negative for vegetation 3- blood cultures repeat on 11/17/2022, 11/18/2022 as well as 11/19/2022 and remains to be negative 4we will Continue the patient on naficilin , obtain a WBC scan to make sure no evidence of deep infection Time with Patient: Less than 30
--- NOTE | 2022-11-21 14:43 | P.PN ---
Subjective Progress Note Date: 11/21/22 Principal diagnosis: Urinary tract infection patient is a 87-year-old male [facility] resident patient was sent to the ER for evaluation of patient being more lethargic than normal and there was concern for possible infection, patient did have elevated white count ad mission and he did spike a fever positive UA concerning for UTI and also have extensive bruising to the left groin and lower abdominal area being monitored by the vascular team and consult for possible pseudoaneurysm. Patient did have a PIETRO that was negative for any vegetation On today's evaluation that is 11/21/2022 patient remains to be afebrile and has a patient is breathing comfortably on room air , the patient denies any chest pain or cough, the patient denies having any nausea no vomiting no abdominal pain, patient has been tolerating his diet Objective - Vital Signs Vital signs: Vital Signs Temp 98.1 F 11/21/22 12:00 Pulse 92 11/21/22 12:00 Resp 18 11/21/22 12:00 BP 114/51 11/21/22 12:00 Pulse Ox 98 11/21/22 12:00 FiO2 21 11/12/22 07:49 Intake & Output 11/20/22 11/21/22 11/21/22 18:59 06:59 18:59 Intake Total 1640 Output Total 200 650 400 Balance 1440 -650 -400 Weight 86.183 kg Intake: IV 150 Intake, IV Titration 740 Amount Dextrose 5% in Water 1, 300 000 ml @ 75 mls/hr IV . [id number] [facility] Rx#:[id number] Nafcillin 2 gm In 100 Dextrose 5% in Water 100 ml @ 50 mls/hr IVPB Q4HR [facility] Rx#:[id number] Potassium Chloride 10 meq 300 In Water For Injection 1 100ml.bag @ 100 mls/hr IVPB Q1HR [facility] Rx#: [id number] Sodium Chloride 0.9% 1, 40 000 ml @ 20 mls/hr IV . Q24H [facility] Rx#:[id number] Oral 0 Tube Feeding 750 Output: Urine 200 650 400 Other: Voiding Method Indwelling Catheter Indwelling Catheter Indwelling Catheter - Exam GENERAL DESCRIPTION: An elderly male lying in bed in no distress RESPIRATORY SYSTEM: Unlabored breathing , decreased breath sounds at bases HEART: S1 S2 regular rate and rhythm , ABDOMEN: Soft , no tenderness EXTREMITIES: Extensive bruising to the left lateral thigh and lower abdominal area no redness - Labs CBC & Chem 7: 11/19/22 09:32 11/21/22 09:17 Labs: Abnormal Lab Results - Last 24 Hours (Table) 11/21/22 11/21/22 Range/Units 09:17 09:17 INR 1.2 H (<1.2) Potassium 3.3 L (3.5-5.1) mmol/L Chloride 115 H (98-107) mmol/L Carbon Dioxide 20 L (22-30) mmol/L Glucose 102 H (74-99) mg/dL Calcium 7.0 L (8.4-10.2) mg/dL Microbiology - Last 24 Hours (Table) 11/17/22 12:07 Blood Culture - Preliminary Blood 11/19/22 09:32 Blood Culture - Preliminary Blood 11/18/22 07:26 Blood Culture - Preliminary Blood Assessment and Plan (1) Fever Current Visit: Yes Status: Acute Code(s): R50.9 - FEVER, UNSPECIFIED SNOMED Code(s): 758934853 (2) Urinary tract infection Current Visit: Yes Status: Acute Code(s): N39.0 - URINARY TRACT INFECTION, SITE NOT SPECIFIED SNOMED Code(s): 17025829 (3) Bacteremia due to methicillin susceptible Staphylococcus aureus (MSSA) Current Visit: Yes Status: Acute Code(s): R78.81 - BACTEREMIA; B95.61 - METHICILLIN SUSCEP STAPH INFCT CAUSING DIS CLASSD ELSWHR SNOMED Code(s): 087598916 Plan: Patient presented to the hospital with weakness noticed to have positive UA now with evidence of MSSA bacteremia possible urinary source, blood culture has been repeated to document clearance of bacteremia seeded abdominal pelvis did not show any obstructive uropathy or abscess 2-patient did have evidence of persistent bacteremia concerning for possible endovascular source echocardiogram has been taken on 11/16/2022 report dimension and no adequate visualization of the cardiac valves patient did have a PIETRO that was negative for vegetation 3- blood cultures repeat on 11/17/2022, 11/18/2022 as well as 11/19/2022 and remains to be negative 4we are waiting for WBC scan to be finalize if negative patient get a PICC line and antibiotic will be switched over to cefazolin 2 g every 8 hours for 2 weeks for now continue with naficillin Time with Patient: Less than 30
[2022-11-21] MEDS: SODIUM CHLORIDE 0.9% 1,000 ML IV SCH (16:14)
--- NOTE | 2022-11-21 16:39 | NM ---
EXAMINATION TYPE: NM WBC whole body DATE OF EXAM: 11/21/2022 COMPARISON: CT 11/10/2022. CLINICAL INDICATION: Male, 87 years old with history of bacteremia , source; TECHNIQUE: Following administration of 11.4 mCi Tc99m Ceretec. Images obtained 3 hours post injecti on. FINDINGS: Normal physiological tracer activity is noted in the liver and spleen and in the bone marrow of the a xial and appendicular skeleton. Mild uptake seen in the expected location of the urinary bladder. IMPRESSION: Uptake in the expected location of the urinary bladder correlate with urinalysis
[2022-11-21] MEDS ORDERED: WARFARIN 2 MG TAB PO ONE (18:00)
--- NOTE | 2022-11-21 19:58 | P.PN ---
Subjective Progress Note Date: 11/21/22 87-year-old patient, brought in from [facility] in the [place]. Patient was noted by the nurses to have decreased mental status. 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 Was found to be more lethargic and difficult to arouse at times. EKG was paced rhythm. Initial blood pressure was 73/44. Pulse of 91. Pulse ox of 97%. Repeat blood pressure was 86/40. Patient himself is not able to give any much history. found a significant bruise in the left side of the body especially the flank going over the thigh. Patient is not sure if he hada fall. Patient not a good historian. Can only answer some simple questions. Nonambulatory. Weak in both the shoulders. Pain in the shoulder. Has a Tabares catheter with some blood in there. 11/11. Patient seen and examined. Patient is alert to self and person. Family at the bedside. 11/12. Patient seen and examined. Hemoglobin this morning is 9.8, sodium 142, potassium 3.7, BUN 5, crit 26 11/13. Patient seen and examined. Still is confused. Does not look in acute distress 11/14. Patient seen and examined. Patient is alert, sodium level this morning is 149, potassium is 2.8. Patient resumed back on Coumadin per vascular surgery 11/15. Patient seen and examined with hemoglobin this morning is 10.5, sodium is 149, potassium is 3.2, BUN is 27, creatinine 0.59,. Patient continues to have poor appetite, discussed with patient's and daughter regarding alternative form of nutrition, 11/16. Patient seen and examined. Labs done this morning, sodium 148, potassium 3.3, BUN 22, creatinine 0.53, glucose 124. Family at the bedside, states he is doing better today 11/17. Patient seen and examined. Sodium this morning is 146, potassium 3.4, BUN 24, creatinine 0.75. INR was 5 11/18/2022 Patient seen and evaluated and follow-up lethargic although arousable. Patient's INR elevated at 6.8 and will give a dose of vitamin K and recommend holding Coumadin. Multiple medical consultations following including infectious disease and patient is maintained on IV antibiotics for MSSA bacteremia and will continue nafcillin. 2-D echo has been ordered and pending read at this time. Culture showing staph aureus and will discuss further with infectious disease about antibiotic treatment for discharge. Patient is currently afebrile with no reported chest pain or shortness of breath. Dietitian following recommending speech evaluation as patient was cheeking foods and is high risk for aspiration. Recommend aspiration precautions. 11/19/2022 Patient is seen in follow-up today with no acute overnight issues noted. Patient oral intake is poor although was able to take all medications including and swallow with no difficulty. Patient was seen and evaluated by speech recommend continue dysphagia diet and aspiration precautions. Patient has no real desire to eat and has advanced dementia. No plans for tube feedings as patient is not a good candidate and risks outweigh the benefits. Patient is maintained on antibiotics with infectious disease following an repeat blood cultures thus far have been negative for 24 hours. 2-D echo not really able to visualize and cardiology has been consulted. Plan is for returning to [facility] once stabilized and discharged from consultations. Patient is afebrile and denies any chest pain or shortness of breath. Potassium low and being replaced per protocol and nephrology is following as well. Repeat INR improved after vitamin K and will resume Coumadin pharmacy to dose. 11/20/2022 Patient is seen in follow-up today and cardiology has been re-consulted with plans for undergoing PIETRO today . Nephrology following as well and patient is being continued on IV antibiotics with infectious disease following. Repeat blood cultures have been negative for 24 hours. INR 1.2 and will continue with Coumadin with pharmacy to dose. Patient is maintained on dysphagia diet would recommend aspiration precautions. Patient is not eating very much and we'll c ontinue to monitor. Potassium 3.0 today and will replace with repeat labs in a daily supplement for potassium. 11/21/2022 Patient seen and evaluated in follow-up today and cardiology has signed off, PIETRO was negative. Patient to undergo WBC scan which is currently pending. Patient will receive a PICC line most likely and continue on 2 weeks of IV antibiotics and return to [facility]. Infectious disease following awaiting report from WBC scan. Patient is continued on Coumadin and INR remains 1.2 will likely need bridging on discharge until INR is therapeutic. Patient to continue to encourag e oral intake. Review of systems: unable to completely assess as patient is confused PHYSICAL EXAMINATION: GENERAL: The patient is alert and oriented x1, not in any acute distress. Well developed, appears ill and elderly HEENT: Pupils are round and equally reacting to light. EOMI. No scleral icterus. No conjunctival pallor. Normocephalic, atraumatic. No pharyngeal erythema. No thyromegaly. CARDIOVASCULAR: S1 and S2 muffled PULMONARY: Diminished breath sounds bilaterally to auscultation, no wheezing or crackles. Coarse rhonchi noted. ABDOMEN: Soft, thin, nontender, nondistended, normoactive bowel sounds. No palpable organomegaly. MUSCULOSKELETAL: No joint swelling or deformity. EXTREMITIES: 1Plus pitting edema lower extremities bilaterally NEUROLOGICAL: Gross neurological examination did not reveal any focal deficits. Diffusely weak SKIN: Left sided bruising seen over the belly area Assessment: Acute urinary tract infection with bacteremia with staph aureus, present on admission Urinary retention requiring indwelling Tabares catheter Hypokalemia , improving most likely secondary to poor oral intake. Acute kidney injury, acute tubular necrosis, improving Acute metabolic encephalopathy possibly secondary to UTI Coumadin toxicity. 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 Currently Rate controlled. Chronic medical debility Hypotension, resolved GERD BPH History of Bilateral chronic rotator cuff arthropathy. Possible chronic stress fracture left acromion from the ongoing glenohumeral joint instability. Moderate bilateral AC joint OA. GI prophylaxis DVT prophylaxis No code Plan: Patient will continue with current medications and management with multiple medical consultations following. Infectious disease following as culture ink wing MSSA bacteremia staph aureus. Repeat blood cultures 2 thus far negative for 24 hours. 2-D echo is hard to visualize and infectious disease recommended PIETRO which was negative yesterday and cardiology has signed off. Patient undergoing WBC scan which is currently pending and will await report. Patient will receive a PICC line and continue on outpatient IV antibiotics for minimum 2 weeks. Patient has been resumed on Coumadin with pharmacy to dose and INR remains subtherapeutic at 1.2, will follow-up on repeat labs and likely need bridging until INR is therapeutic on discharge. continue with indwelling Tabares catheter and nephrology following as well Potassium continues to be low and will replace per protocol and have added daily supplementation. Follow-up labs ordered Patient is high risk for aspiration and will continue aspiration precautions with head of the bed elevated 30-45 at all times and supervision with meals Speech therapy evaluated the patient recommending to continue with current dysphagia diet Patient will be going back to [facility] in the next 24-48 hours Patient with significant comorbidities and overall poor prognosis The impression and plan of care has been dictated by Michelle Nash, Nurse Practitioner as directed. Dr. Yonathan MD I have performed a history and examination and MDM of this patient, discussed the same with the dictator, and agree with the dictator's assessment and plan as written ,documented as a scribe. Based on total visit time, I have performed more than 50% of the visit. Objective - Vital Signs Vital signs: Vital Signs Temp 99.1 F 11/21/22 04:00 Pulse 83 11/21/22 08:30 Resp 18 11/21/22 08:30 BP 100/67 11/21/22 08:30 Pulse Ox 96 11/21/22 08:30 FiO2 21 11/12/22 07:49 Intake & Output 11/20/22 11/21/22 11/21/22 18:59 06:59 18:59 Intake Total 1640 Output Total 200 650 Balance 1440 -650 Weight 86.183 kg Intake: IV 150 Intake, IV Titration 740 Amount Dextrose 5% in Water 1, 300 000 ml @ 75 mls/hr IV . [id number] [facility] Rx#:[id number] Nafcillin 2 gm In 100 Dextrose 5% in Water 100 ml @ 50 mls/hr IVPB Q4HR [facility] Rx#:[id number] Potassium Chloride 10 meq 300 In Water For Injection 1 100ml.bag @ 100 mls/hr IVPB Q1HR [facility] Rx#: [id number] Sodium Chloride 0.9% 1, 40 000 ml @ 20 mls/hr IV . Q24H [facility] Rx#:[id number] Oral 0 Tube Feeding 750 Output: Urine 200 650 Other: Voiding Method Indwelling Catheter Indwelling Catheter - Labs CBC & Chem 7: 11/19/22 09:32 11/21/22 09:17 Labs: Microbiology - Last 24 Hours (Table) 07/25/23 09:32 Blood Culture - Preliminary Blood 11/18/22 07:26 Blood Culture - Preliminary Blood 11/17/22 12:07 Blood Culture - Preliminary Blood
[2022-11-21] MEDS: DEXTROSE 5% IN WATER 1,000 ML IV SCH (21:02)
[2022-11-21] MEDS: FINASTERIDE 5 MG TAB PO SCH (21:02)
[2022-11-21] MEDS: TAMSULOSIN 0.4 MG CAP.ER.24H PO SCH (21:02)
[2022-11-21] MEDS: NON FORMULARY DRUG (Simvastatin 20 MG Tab) PO SCH (21:49)
[2022-11-22] MEDS: NAFCILLIN 2 GM in DEXTROSE 5% IN WATER 100 ML IVPB SCH ×6 (04:50→12:39)
[2022-11-22 06:57] LABS: INR 1.2 (<1.2); Prothrombin Time 12.3 sec (9.0-12.0)
[2022-11-22 07:02] LABS: African American GFR (CKD) 68 (>60 ml/min/1.73 sqM); Anion Gap 5 mmol/L; Blood Urea Nitrogen 19 mg/dL (9-20); Calcium 7.1 mg/dL (8.4-10.2); Carbon Dioxide 19 mmol/L (22-30); Chloride 118 mmol/L (98-107); Glucose 117 mg/dL (74-99); Magnesium 2.3 mg/dL (1.6-2.3); Non-African American GFR(CKD) 59 (>60 ml/min/1.73 sqM); Potassium 3.7 mmol/L (3.5-5.1); Sodium 142 mmol/L (137-145)
[2022-11-22] MEDS: POTASSIUM CHLORIDE ER 20 MEQ TAB.ER PO SCH (08:40)
[2022-11-22] MEDS: FAMOTIDINE 20 MG TAB PO SCH (08:40)
[2022-11-22] MEDS: METOPROLOL TARTRATE 12.5 MG TAB PO SCH (08:40)
[2022-11-22] MEDS: CHOLECALCIFEROL 25 MCG (1000 IU) TABLET PO SCH (08:40)
[2022-11-22] MEDS: risperiDONE 0.25 MG TAB PO SCH (08:40)
[2022-11-22] MEDS ORDERED: LIDOCAINE 1% INJ 10MG/ML (5 ML VIAL-PF) SQ ONE (09:04)
[2022-11-22] MEDS: ASPIRIN 81 MG PO SCH (09:21)
--- NOTE | 2022-11-22 09:47 | P.OP ---
Date of Procedure: 11/22/22 Description of Procedure: Date of Procedure: Preoperative Diagnosis: Need for long-term IV antibiotic access. Postoperative Diagnosis: Same. Procedure(s) Performed: Insertion of peripherally inserted central catheter via previously placed midline IV and right cephalic vein under fluoroscopic guidance. Anesthesia: local (1% Xylocaine.) Surgeon: Rayshawn Estimated Blood Loss (ml): 5 IV fluids (ml): 0 Urine output (ml): 0 Pathology: none sent Condition: stable Disposition: no change Indications for Procedure: Patient is a 87-year-old male with bacteremia on admission now with negative blood cultures. Patient will require long-term IV antibiotics as an outpatient patient is offered a PICC line to allow for intravenous administration of antibiotics. Description of Procedure: Patient was brought to the special procedure suite. The right upper extremity and previously placed midline catheter sterilely prepped and draped in usual manner. The previously placed catheter was cannulated, Softip guidewire was advanced into the vein. The needle was withdrawn and a micropuncture sheath and dilator advanced over the guidewire. The guidewire was withdrawn and exchanged for the PICC guidewire and measured 42 cm to the cavoatrial junction. The catheter was cut to size and advanced into the cavoatrial junction without resistance. The sheath was peeled away. Blood was easily withdrawn through the catheter and the catheter was then flushed with heparinized saline solution and secured to the skin. Patient tolerated procedure well and was returned to their room in satisfactory and stable condition.
[2022-11-22 11:11] VITALS: RESP 20
--- NOTE | 2022-11-22 12:02 | P.PN ---
Subjective Patient is seen in follow-up for acute kidney injury and hypernatremia. GFR stable. Sodium level 142. Off IV fluids. On dysphagia 3 chopped diet. Oral intake is poor. Blood pressure stable. Nonoliguric. Vital signs are stable. General: No acute distress. Resting in bed. HEENT: Head exam is unremarkable. LUNGS: No audible rhonchi or wheezes. HEART: Rate and Rhythm are regular. ABDOMEN: Nontender. EXTREMITITES: No edema. Objective - Vital Signs Vital signs: Vital Signs Temp 98.0 F 11/22/22 07:40 Pulse 62 11/22/22 07:40 Resp 20 11/22/22 07:40 BP 101/61 11/22/22 07:40 Pulse Ox 98 11/22/22 07:40 FiO2 21 11/12/22 07:49 Intake & Output 11/21/22 11/22/22 11/22/22 18:59 06:59 18:59 Output Total 700 650 Balance -700 -650 Weight 86.183 kg Output: Urine 700 650 Other: Voiding Method Indwelling Catheter Indwelling Catheter Indwelling Catheter - Labs CBC & Chem 7: 11/19/22 09:32 11/22/22 05:48 Labs: Abnormal Lab Results - Last 24 Hours (Table) 11/22/22 11/22/22 Range/Units 05:48 05:48 PT 12.3 H (9.0-12.0) sec INR 1.2 H (<1.2) Chloride 118 H (98-107) mmol/L Carbon Dioxide 19 L (22-30) mmol/L Glucose 117 H (74-99) mg/dL Calcium 7.1 L (8.4-10.2) mg/dL Microbiology - Last 24 Hours (Table) 11/19/22 09:32 Blood Culture - Preliminary Blood 11/18/22 07:26 Blood Culture - Preliminary Blood 11/17/22 12:07 Blood Culture - Preliminary Blood Assessment and Plan Plan: Assessment: 1. Acute kidney injury secondary to ATN secondary to hypotension and urinary retention. Creatinine fairly stable at 1.1. 2. Staph aureus and enterococcus UTI and staph bacteremia on antibiotics. ID following. 3. Urinary retention. On Flomax. Has Tabares catheter. 4. Hypernatremia from lack of oral water intake. s/p D5W. Sodium level stable at 142 today. 5. Hypokalemia from poor intake. Magnesium normal. On maintenance supplementation. Better. 6. Severe protein calorie malnutrition. Albumin 1.7. Status post IV albumin given 11/19/2022. Plan: Encouraged oral intake. Preserved EF noted on echo. Continue to monitor renal function and urine output. PIETRO pending.
[2022-11-22] MEDS ORDERED: SODIUM BICARBONATE TAB 650 MG TAB PO SCH (12:15)
[2022-11-22] MEDS: SODIUM CHLORIDE 0.9% 1,000 ML IV SCH (12:54)
--- NOTE | 2022-11-22 15:07 | P.DS ---
Providers Date of admission: 11/09/22 20:26 Expected date of discharge: 11/22/22 Attending physician: Oracio Almazan Consults: 11/10/22 18:13 Consult Physician Routine Consulting Provider: Ariel Wagner Consult Reason/Comments: Abnormal renal function Do you want consulting provider notified?: Yes 11/10/22 18:27 Consult Physician Routine Consulting Provider: Zenon Wynn Consult Reason/Comments: shoulder pain Do you want consulting provider notified?: Yes 11/11/22 14:33 Consult Physician Routine Consulting Provider: Juan Antonio Malagon Consult Reason/Comments: complicated UTI Do you want consulting provider notified?: Yes 11/12/22 11:55 Consult Physician Routine Consulting Provider: Danielito Lynch Consult Reason/Comments: A-fib Do you want consulting provider notified?: Yes Primary care physician: Mk Phelps MD Hospital Course: Final diagnosis Acute urinary tract infection with bacteremia with staph aureus, present on admission Urinary retention requiring indwelling Tabares catheter Hypokalemia , improving most likely secondary to poor oral intake. Acute kidney injury, acute tubular necrosis, improving Acute metabolic encephalopathy possibly secondary to UTI Coumadin toxicity. INR improved after a dose of vitamin K Coumadin resumed, currently subtherapeutic with INR 1.2 Groin hematoma Right groin pseudoaneurysm , status post pseudoaneurysm compression with thrombin injection on 11/13/[address] showed left heterogenous soft tissue fluid collection measuring 6.7 x 3.5 cm possible hematoma Major cognitive impairment, likely late onset Alzheimer's dementia Persistent atrial fibrillation. Currently Rate controlled. Chronic medical debility Hypotension, resolved GERD BPH History of Bilateral chronic rotator cuff arthropathy. Possible chronic stress fracture left acromion from the ongoing glenohumeral joint instability. Moderate bilateral AC joint OA. GI prophylaxis DVT prophylaxis No code Discharge disposition Patient is being discharged in a stable condition with guarded prognosis to [facility]. Patient will follow-up with in the outpatient setting upon discharge. Patient is to continue IV cefazolin as scheduled. Total time taken is greater than 35 minutes. Hospital course This is a 87-year-old male who was recently admitted with weakness increased lethargy found to have urinary tract infection with bacteremia. Patient being followed by infectious disease maintained on antibiotics alter consultations including cardiology. Patient underwent a PIETRO which was negative and has been cleared by cardiology for discharge. Patient is on Coumadin and will continue with Lovenox bridging until INR is therapeutic between 2 and 3. Patient has received a picc line to continue on IV abx for the next 2 weeks. patient also seen and evaluated by interventional radiology for Right groin pseudoaneurysm , status post pseudoaneurysm compression with thrombin injection on 11/13/2022 with interventional radiology. Vascular surgery recommend resuming Coumadin and working on reaching therapeutic levels. Recommend follow-up labs in the next 1- 2 days to monitor INR with cbc and bmp in 2-3 days. Patient continue with indwelling Tabares catheter and outpatient follow-up. Patient is continued on Flomax. Urine culture sounds with staph aureus with enterococcus. Most recent cultures have been negative. Patient continues to have poor oral intake and needs encouragement and would recommend aspiration precautions and supervision with meals and dysphasia chopped diet with head of the bed elevated 30-45 at all times. Patient does have advanced dementia and has been having decreased quality of life, decreased oral intake and overall generalized poor health. Patient is no code. Please refer to their consultation notes for further HPI. Currently no reports of chest pain, shortness of breath, or palpitations. Patient is afebrile. No reports of nausea or vomiting and patient is tolerating diet. Patient will be going to [facility] the [place] today. Physical exam: Gen: This is a 79-year-old male who is awake, alert and oriented 1, baseline, thin built, elderly appearing, confused HEENT: Head is atraumatic, normocephalic. Pupils equal, round. Sclerae is anicteric. NECK: Supple. No JVD. No lymphadenopathy. No thyromegaly. LUNGS:Diminished breath sounds bilaterally with no wheezing, coarse rhonchi. No intercostal retractions. HEART: Regular rate and rhythm. No murmur. ABDOMEN: Soft. Bowel sounds are present. No masses. No tenderness. EXTREMITIES: No pedal edema. No calf tenderness. Bilateral lower extremity generalized edema noted NEUROLOGICAL: Patient is awake, alert and oriented x1. baseline, dementia . Diffusely weak Please refer to medication reconciliation sheet for a list of medications. The impression and plan of care has been dictated by Michelle Nash, Nurse Practitioner as directed. Dr. Yonathan MD I have performed a history and examination and MDM of this patient, discussed the same with the dictator, and agree with the dictator's assessment and plan as written ,documented as a scribe. Based on total visit time, I have performed more than 50% of the visit. Patient Condition at Discharge: Fair Plan - Discharge Summary Discharge Rx Participant: No New Discharge Prescriptions: New Potassium Chloride ER [K-Dur 20] 20 meq PO BID tab ceFAZolin [Kefzol] 2 gm IVP Q8H 14 Days #42 each Metoprolol Tartrate [Lopressor] 12.5 mg PO BID tab Enoxaparin [Lovenox] 80 mg SQ DAILY 4 Days #4 each Acetaminophen Tab [Tylenol] 650 mg PO Q6HR PRN tab PRN Reason: Fever and/ or Mild Pain Continue Aspirin 81 mg PO DAILY@0900 Finasteride 5 mg PO HS@2099 Simvastatin [Zocor] 20 mg PO HS@2100 EPINEPHrine (Auto Inject) [Epipen] 0.3 mg IM ONCE PRN PRN Reason: Anaphylaxis risperiDONE [RisperDAL] 0.25 mg PO BID@899,2099 Tamsulosin [Flomax] 0.4 mg PO HS@2099 Famotidine [Pepcid] 20 mg PO DAILY@09 Cholecalciferol [Vitamin D3 (25 Mcg = 1000 Iu)] 25 mcg PO DAILY@09 Olanzapine Reconstituted 2.5 mg IM Q4H PRN PRN Reason: Agitation Discontinued Atenolol [Tenormin] 25 mg PO DAILY@0900 Discharge Medication List Aspirin 81 mg PO DAILY@89912/09/13 [History] Finasteride 5 mg PO HS@209912/09/13 [History] Cholecalciferol [Vitamin D3 (25 Mcg = 1000 Iu)] 25 mcg PO DAILY@89911/09/22 [History] EPINEPHrine (Auto Inject) [Epipen] 0.3 mg IM ONCE PRN 11/09/22 [History] Famotidine [Pepcid] 20 mg PO DAILY@89911/09/22 [History] Olanzapine Reconstituted 2.5 mg IM Q4H PRN 11/09/22 [History] Simvastatin [Zocor] 20 mg PO HS@209911/09/22 [History] Tamsulosin [Flomax] 0.4 mg PO HS@209911/09/22 [History] risperiDONE [RisperDAL] 0.25 mg PO BID@0900,2100 11/09/22 [History] Acetaminophen Tab [Tylenol] 650 mg PO Q6HR PRN tab 11/22/22 [Rx] Enoxaparin [Lovenox] 80 mg SQ DAILY 4 Days #4 each 11/22/22 [Rx] Metoprolol Tartrate [Lopressor] 12.5 mg PO BID tab 11/22/22 [Rx] Potassium Chloride ER [K-Dur 20] 20 meq PO BID tab 11/22/22 [Rx] ceFAZolin [Kefzol] 2 gm IVP Q8H 14 Days #42 each 11/22/22 [Rx] Follow up Appointment(s)/Referral(s): Evan Strange MD [STAFF PHYSICIAN] - 1-2 days Virgil Montalvo MD [STAFF PHYSICIAN] - As Needed Activity/Diet/Wound Care/Special Instructions: Patient is going to [facility] as tolerated Continue with cefazolin 2 g every 8 hours for the next 2 weeks Continue with Coumadin with pharmacy to dose and Lovenox bridging until therapeutic INR of 2 to 3 Continue dysphasia chopped diet with aspiration precautions and supervision with meals head of the bed elevated 30-45 at all times Discharge Disposition: TRANSFER TO SNF/ECF
--- NOTE | 2022-11-22 15:39 | P.PN ---
Subjective Progress Note Date: 11/22/22 Principal diagnosis: Urinary tract infection patient is a 87-year-old male senior living resident patient was sent to the ER for evaluation of patient being more lethargic than normal and there was concern for possible infection, patient did have elevated white count ad mission and he did spike a fever positive UA concerning for UTI and also have extensive bruising to the left groin and lower abdominal area being monitored by the vascular team and consult for possible pseudoaneurysm. Patient did have a PIETRO that was negative for any vegetation On today's evaluation that is 11/22/2022 patient continues to be afebrile and has a patient is breathing comfortably on room air , the patient denies any chest pain or cough, the patient denies having any nausea no vomiting no abdominal pain, no new symptoms Objective - Vital Signs Vital signs: Vital Signs Temp 98.0 F 11/22/22 07:40 Pulse 62 11/22/22 07:40 Resp 20 11/22/22 07:40 BP 101/61 11/22/22 07:40 Pulse Ox 98 11/22/22 07:40 FiO2 21 11/12/22 07:49 Intake & Output 11/21/22 11/22/22 11/22/22 18:59 06:59 18:59 Output Total 700 650 Balance -700 -650 Weight 86.183 kg Output: Urine 700 650 Other: Voiding Method Indwelling Catheter Indwelling Catheter Indwelling Catheter - Exam GENERAL DESCRIPTION: An elderly male lying in bed in no distress RESPIRATORY SYSTEM: Unlabored breathing , decreased breath sounds at bases HEART: S1 S2 regular rate and rhythm , ABDOMEN: Soft , no tenderness EXTREMITIES: Extensive bruising to the left lateral thigh and lower abdominal area no redness - Labs CBC & Chem 7: 11/19/22 09:32 11/22/22 05:48 Labs: Abnormal Lab Results - Last 24 Hours (Table) 11/22/22 11/22/22 Range/Units 05:48 05:48 PT 12.3 H (9.0-12.0) sec INR 1.2 H (<1.2) Chloride 118 H (98-107) mmol/L Carbon Dioxide 19 L (22-30) mmol/L Glucose 117 H (74-99) mg/dL Calcium 7.1 L (8.4-10.2) mg/dL Microbiology - Last 24 Hours (Table) 11/19/22 09:32 Blood Culture - Preliminary Blood 11/18/22 07:26 Blood Culture - Preliminary Blood 11/17/22 12:07 Blood Culture - Preliminary Blood Assessment and Plan (1) Fever Current Visit: Yes Status: Acute Code(s): R50.9 - FEVER, UNSPECIFIED SNOMED Code(s): 517297891 (2) Urinary tract infection Current Visit: Yes Status: Acute Code(s): N39.0 - URINARY TRACT INFECTION, SITE NOT SPECIFIED SNOMED Code(s): 34307605 (3) Bacteremia due to methicillin susceptible Staphylococcus aureus (MSSA) Current Visit: Yes Status: Acute Code(s): R78.81 - BACTEREMIA; B95.61 - METHICILLIN SUSCEP STAPH INFCT CAUSING DIS CLASSD ELSWHR SNOMED Code(s): 757037432 Plan: Patient presented to the hospital with weakness noticed to have positive UA now with evidence of MSSA bacteremia possible urinary source, blood culture has been repeated to document clearance of bacteremia seeded abdominal pelvis did not show any obstructive uropathy or abscess 2-patient did have evidence of persistent bacteremia concerning for possible endovascular source echocardiogram has been taken on 11/16/2022 report dimension and no adequate visualization of the cardiac valves patient did have a PIETRO that was negative for vegetation 3- blood cultures repeat on 11/17/2022, 11/18/2022 as well as 11/19/2022 and remains to be negative 4patient WBC scan did show uptake in the bladder area only, patient did get a PICC line planning for 2 weeks of IV cefazolin and close outpatient follow-up discussed with the admitting team
[2022-11-22 15:58] VITALS: BP 102/66; PULSE 86; TEMP 97.6
[2022-11-22] MEDS ORDERED: WARFARIN 2 MG TAB PO ONE (18:00)
--- NOTE | 2022-11-23 09:20 | IR ---
EXAMINATION TYPE: IR cvc insert >=5 years DATE OF EXAM: 11/22/2022 COMPARISON: NONE HISTORY: Antibiotics, 42 cm left basilic, fluoroscopy time 0.1 minutes, DAP 0.1060 Gycm2 Fluoroscopy was provided to the referring clinician.
== END 2022-11-22 19:38 | DRG 871 ==
LOC: EC 16:01 → 3SCARD 20:26 → 5NMEDONC 11-21 23:44
PROVIDERS: ADMIT Hospitalist; ATTEND Hospitalist
PROC: 3E05317 Introduction of Other Thrombolytic into Peripheral Artery, Percutaneous Approach (ICD-10-PCS; 2022-11-12)
PROC: 30233J1 Transfusion of Nonautologous Serum Albumin into Peripheral Vein, Percutaneous Approach (ICD-10-PCS; 2022-11-19)
PROC: B24BZZ4 Ultrasonography of Heart with Aorta, Transesophageal (ICD-10-PCS; principal; 2022-11-20 10:00)
PROC: 02HV33Z Insertion of Infusion Device into Superior Vena Cava, Percutaneous Approach (ICD-10-PCS; 2022-11-22)
PROC: 05HC33Z Insertion of Infusion Device into Left Basilic Vein, Percutaneous Approach (ICD-10-PCS; 2022-11-22)
DX: A41.01 Sepsis due to Methicillin susceptible Staphylococcus aureus (principal); E43 Unspecified severe protein-calorie malnutrition; N17.0 Acute kidney failure with tubular necrosis; G93.41 Metabolic encephalopathy; I74.3 Embolism and thrombosis of arteries of the lower extremities; E87.0 Hyperosmolality and hypernatremia; D68.9 Coagulation defect, unspecified; I48.21 Permanent atrial fibrillation; N39.0 Urinary tract infection, site not specified; I49.5 Sick sinus syndrome; I72.8 Aneurysm of other specified arteries; G30.1 Alzheimer's disease with late onset; F02.80 Dementia in other diseases classified elsewhere, unspecified severity, without behavioral disturbance, psychotic disturbance, mood disturbance, and anxiety; I70.0 Atherosclerosis of aorta; Z66 Do not resuscitate; R54 Age-related physical debility; I69.328 Other speech and language deficits following cerebral infarction; I08.3 Combined rheumatic disorders of mitral, aortic and tricuspid valves; B95.61 Methicillin susceptible Staphylococcus aureus infection as the cause of diseases classified elsewhere; E78.5 Hyperlipidemia, unspecified; R77.8 Other specified abnormalities of plasma proteins; E80.6 Other disorders of bilirubin metabolism; G62.9 Polyneuropathy, unspecified; S30.1XXA Contusion of abdominal wall, initial encounter; M12.812 Other specific arthropathies, not elsewhere classified, left shoulder; M12.811 Other specific arthropathies, not elsewhere classified, right shoulder; M25.312 Other instability, left shoulder; T45.515A Adverse effect of anticoagulants, initial encounter; K21.9 Gastro-esophageal reflux disease without esophagitis; M84.312 Stress fracture, left shoulder; E87.6 Hypokalemia; B95.2 Enterococcus as the cause of diseases classified elsewhere; R33.9 Retention of urine, unspecified; E86.9 Volume depletion, unspecified; N40.0 Benign prostatic hyperplasia without lower urinary tract symptoms; K46.9 Unspecified abdominal hernia without obstruction or gangrene; N32.89 Other specified disorders of bladder; Z20.822 Contact with and (suspected) exposure to COVID-19; Z68.28 Body mass index [BMI] 28.0-28.9, adult; Z79.899 Other long term (current) drug therapy; Z79.82 Long term (current) use of aspirin; Z88.5 Allergy status to narcotic agent; Z88.8 Allergy status to other drugs, medicaments and biological substances; Z91.030 Bee allergy status; Z88.1 Allergy status to other antibiotic agents; Z88.3 Allergy status to other anti-infective agents; Z95.0 Presence of cardiac pacemaker; Z87.891 Personal history of nicotine dependence
CPT/HCPCS: 36002; 36410; 36415; 36573; 51702; 70450; 71046; 74176; 76770; 76937; 78306; 80048; 80053; 80074; 81001; 82140; 83605; 83735; 84132; 84484; 85025; 85610; 85652; 85730; 86140; 87040; 87077; 87086; 87186; 93005; 93306; 93312; 93320; 93325; 93975; 94760; 99285

== ENCOUNTER 2022-11-24 01:45 | Observation (INO) | payer MEDICARE, BC ==
[2022-11-24] MEDS ORDERED: SODIUM CHLORIDE 0.9% 1,000 ML IV ONE ×2 (01:51→02:14)
[2022-11-24] MEDS ORDERED: DILTIAZEM DRIP BOLUS FROM BAG 1 MG SOLN IV ONE ×2 (02:14→04:15)
[2022-11-24 02:15] LABS: Basophils % (A) 0 %; Eosinophils # (A) 0.1 k/uL (0-0.7); Eosinophils % (A) 1 %; HCT 26.8 % (39.0-53.0); Hypochromasia Moderate; Lymphocytes # (A) 1.1 k/uL (1.0-4.8); Lymphocytes % (A) 15 %; MCH 31.3 pg (25.0-35.0); MCHC 33.6 g/dL (31.0-37.0); MCV 93.1 fL (80.0-100.0); Mean Platelet Volume 8.7; Monocytes # (A) 0.3 k/uL (0-1.0); Monocytes % (A) 4 %; Neutrophils # (A) 5.8 k/uL (1.3-7.7); Neutrophils % (A) 79 %; Platelet Count 285 k/uL (150-450); Poikilocytosis Slight; RBC 2.88 m/uL (4.30-5.90); RDW 15.5 % (11.5-15.5); WBC 7.4 k/uL (3.8-10.6)
[2022-11-24] MEDS ORDERED: SODIUM CHLORIDE 0.9% 1,000 ML IV SCH ×2 (02:15→05:45)
--- NOTE | 2022-11-24 02:15 | ED ---
Altered Mental Status HPI - General Chief Complaint: Altered Mental Status Stated Complaint: Alt Mental Time Seen by Provider: 11/24/22 01:50 Source: patient, EMS, RN notes reviewed, old records reviewed Mode of arrival: EMS Limitations: altered mental status - History of Present Illness Initial Comments: This is an 79-year-old male to the emergency department today. Patient is unable to provide history of why he is here. Patient was sent in from extended- care facility for altered mental status elevated heart rate and family thought he was not acting appropriately. Patient does have recent hospital admission for blood infection. MD Complaint: altered mental status, confusion, weakness -: unknown Consistency of Symptoms: getting worse Context: history of similar presentation Associated Symptoms: weakness Treatments Prior to Arrival: IV fluid, oxygen - Related Data Home Medications Medication Instructions Recorded Confirmed Aspirin 81 mg PO DAILY 12/09/13 11/24/22 Finasteride 5 mg PO HS 12/09/13 11/24/22 Cholecalciferol [Vitamin D3 (25 25 mcg PO DAILY 11/09/22 11/24/22 Mcg = 1000 Iu)] EPINEPHrine (Auto Inject) [Epipen] 0.3 mg IM ONCE PRN 11/09/22 11/24/22 Famotidine [Pepcid] 20 mg PO DAILY 11/09/22 11/24/22 Simvastatin [Zocor] 20 mg PO HS 11/09/22 11/24/22 Tamsulosin [Flomax] 0.4 mg PO HS 11/09/22 11/24/22 risperiDONE [RisperDAL] 0.25 mg PO BID@0900,2100 11/09/22 11/24/22 Potassium Chloride ER [K-Dur 20] 20 meq PO BID@0900,1700 11/24/22 11/24/22 ceFAZolin [Kefzol] 2 gm IVP Q8HR@0600,1600,2200 11/24/22 11/24/22 Previous Rx's Medication Instructions Recorded Acetaminophen Tab [Tylenol] 650 mg PO Q6HR PRN tab 11/22/22 Enoxaparin [Lovenox] 80 mg SQ DAILY 4 Days #4 each 11/22/22 Metoprolol Tartrate [Lopressor] 25 mg PO BID tab 11/25/22 Warfarin [Coumadin] 5 mg PO 1800 tab 11/25/22 Allergies Allergy/AdvReac Type Severity Reaction Status Date / Time acetaminophen [From Vicodin] Allergy Unknown Verified 11/24/22 16:40 atorvastatin [From Lipitor] Allergy Unknown, Verified 11/24/22 16:40 Information from [facility] bee venom protein (honey bee) Allergy Unknown, Verified 11/24/22 16:40 Information from [facility] ezetimibe [From Zetia] Allergy Unknown, Verified 11/24/22 16:40 Information from [facility] hydrocodone bitartrate Allergy Unknown, Verified 11/24/22 16:40 [From Vicodin] Information from [facility] metronidazole [From Flagyl] Allergy Unknown, Verified 11/24/22 16:40 Information from [facility] nitrofurantoin Allergy Unknown, Verified 11/24/22 16:40 [From Macrodantin] Information from [facility] Review of Systems ROS Statement: Those systems with pertinent positive or pertinent negative responses have been documented in the HPI. ROS Other: All systems not noted in ROS Statement are negative. Past Medical History Past Medical History: Atrial Fibrillation, CVA/TIA, Hyperlipidemia Additional Past Medical History / Comment(s): See Dr Weaver H&P,neuropathy, hx kidney stone History of Any Multi-Drug Resistant Organisms: None Reported Past Surgical History: Appendectomy, Heart Catheterization Past Anesthesia/Blood Transfusion Reactions: No Reported Reaction Smoking Status: Never smoker - Past Family History Mother Family Medical History: Cancer General Exam Limitations: altered mental status General appearance: alert, anxious, lethargic, in distress Head exam: Present: atraumatic, normocephalic, normal inspection Eye exam: Present: normal appearance, PERRL, EOMI. Absent: scleral icterus, conjunctival injection, periorbital swelling ENT exam: Present: normal exam, mucous membranes moist Neck exam: Present: normal inspection. Absent: tenderness, meningismus, lymphadenopathy Respiratory exam: Present: normal lung sounds bilaterally. Absent: respiratory distress, wheezes, rales, rhonchi, stridor Cardiovascular Exam: Present: tachycardia, irregular rhythm, normal heart sounds. Absent: systolic murmur, diastolic murmur, rubs, gallop, clicks GI/Abdominal exam: Present: soft, normal bowel sounds. Absent: distended, tenderness, guarding, rebound, rigid Extremities exam: Present: normal inspection, full ROM, normal capillary refill. Absent: tenderness, pedal edema, joint swelling, calf tenderness Back exam: Present: normal inspection Neurological exam: Present: alert, oriented X3, CN II-XII intact Psychiatric exam: Present: normal affect, normal mood Skin exam: Present: warm, dry, intact, normal color. Absent: rash Course Vital Signs 11/24/22 11/24/22 11/24/22 01:53 02:40 02:41 Temperature 97.8 F Pulse Rate 135 H 112 H 99 Respiratory 20 20 16 Rate Blood Pressure 117/82 100/64 100/66 O2 Sat by Pulse 98 99 95 Oximetry 11/24/22 11/24/22 11/24/22 03:00 03:30 04:00 Temperature Pulse Rate 105 H 102 H 99 Respiratory 18 18 16 Rate Blood Pressure 105/57 99/61 109/59 O2 Sat by Pulse 95 95 95 Oximetry 11/24/22 11/24/22 11/24/22 04:30 05:00 05:38 Temperature Pulse Rate 99 80 91 Respiratory 16 14 14 Rate Blood Pressure 106/52 109/50 104/51 O2 Sat by Pulse 95 95 95 Oximetry 11/24/22 07:53 Temperature Pulse Rate 84 Respiratory 16 Rate Blood Pressure 97/64 O2 Sat by Pulse 97 Oximetry - Reevaluation(s) Reevaluation #1: 11/24/22 02:15 Medical record is reviewed Reevaluation #2: 11/24/22 04:14 Patient's symptoms improving Reevaluation #3: 11/24/22 05:38 Patient informed results questions answered Reevaluation #4: 11/24/22 02:15 Was pt. sent in by a medical professional or institution (, PA, TIRE ROOM SUPERVISOR, urgent care, hospital, or half-way...) When possible be specific @ -no Did you speak to anyone other than the patient for history (EMS, parent, family, police, friend...)? What history was obtained from this source @ -no Did you review nursing and triage notes (agree or disagree)? Why? @ -agree Are old charts reviewed (outside hosp., previous admission, EMS record, old EKG, old radiological studies, urgent care reports/EKG's, half-way records)? Report findings @ -yes Differential Diagnosis (chest pain, altered mental status, abdominal pain women, abdominal pain men, vaginal bleeding, weakness, fever, dyspnea, syncope, hea dache, dizziness, GI bleed, back pain, seizure, CVA, palpatations, mental health, musculoskeletal)? @ -prior EKG interpreted by me (3pts min.). @ -yes X-rays interpreted by me (1pt min.). @ -yes CT interpreted by me (1pt min.). @ -no U/S interpreted by me (1pt. min.). @ -no What testing was considered but not performed or refused? (CT, X-rays, U/S, labs)? Why? @ -none What meds were considered but not given or refused? Why? @ -none Did you discuss the management of the patient with other professionals (professionals i.e. , PA, TIRE ROOM SUPERVISOR, lab, RT, psych nurse, health and social care teacher, secret code expert, teacher, chief science officer, pillowcase maker)? Give summary @ -no Was smoking cessation discussed for >3mins.? @ -no Was critical care preformed (if so, how long)? @ -yes31 Were there social determinants of health that impacted care today? How? (Homelessness, low income, unemployed, alcoholism, drug addiction, transportation, low edu. Level, literacy, decrease access to med. care, long term, rehab)? @ -none Was there de-escalation of care discussed even if they declined (Discuss DNR or withdrawal of care, Hospice)? DNR status @ -no What co-morbidities impacted this encounter? (DM, HTN, Smoking, COPD, CAD, C ancer, CVA, ARF, Chemo, Hep., AIDS, mental health diagnosis, sleep apnea, morbid obesity)? @ -none Was patient admitted / discharged? Hospital course, mention meds given and route, prescriptions, significant lab abnormalities, going to OR and other pertinent info. @ - 79 male to the emergency department for evaluation of inappropriate behavior altered mental status weakness a fibrillation with RVR dehydration. Patient be admitted for supportive care continued monitoring and evaluation. Admitted Undiagnosed new problem with uncertain prognosis? @ -no Drug Therapy requiring intensive monitoring for toxicity (Heparin, Nitro, Insulin, Cardizem)? @ -no Were any procedures done? @ -no Diagnosis/symptom? @ -Nature fibrillation with RVR Acute, or Chronic, or Acute on Chronic? @ -Acute Uncomplicated (without systemic symptoms) or Complicated (systemic symptoms)? @ -Complicated Side effects of treatment? @ -no Exacerbation, Progression, or Severe Exacerbation? @ -exacerbation Poses a threat to life or bodily function? How? (Chest pain, [place], [place], pneumonia, PE, COPD, DKA, ARF, appy, cholecystitis, CVA, Diverticulitis, Homicidal, Suicidal, threat to staff... and all critical care pts) @ -yes Reevaluation #5: 11/24/22 02:15 Differential Altered Mental Status: Hypoglycemia, DKA, hypercapnia, ETOH, overdose, CO poisoning, trauma, myxedema coma, HTN encephalopathy, infection, encephalitis, psychosis, intercranial hemorrhage, hepatic encephalopathy, meningitis, CVA, this is not meant to be an all-inclusive list - Consultations Consultation #1: Spoke with [facility] were agreeable admit this patient Medical Decision Making - Medical Decision Making 87 male to the emergency department for evaluation of inappropriate behavior altered mental status weakness H a fibrillation with RVR dehydration. Patient be admitted for supportive care continued monitoring and evaluation. - Lab Data Result diagrams: 11/25/22 11:24 11/25/22 11:24 Lab Results 11/24/22 11/24/22 11/24/22 Range/Units 01:51 01:51 01:51 WBC 7.4 (3.8-10.6) k/uL RBC 2.88 L (4.30-5.90) m/uL Hgb 9.0 L (13.0-17.5) gm/dL Hct 26.8 L (39.0-53.0) % MCV 93.1 (80.0-100.0) fL MCH 31.3 (25.0-35.0) pg MCHC 33.6 (31.0-37.0) g/dL RDW 15.5 (11.5-15.5) % Plt Count 285 (150-450) k/uL MPV 8.7 Neutrophils % 79 % Lymphocytes % 15 % Monocytes % 4 % Eosinophils % 1 % Basophils % 0 % Neutrophils # 5.8 (1.3-7.7) k/uL Lymphocytes # 1.1 (1.0-4.8) k/uL Monocytes # 0.3 (0-1.0) k/uL Eosinophils # 0.1 (0-0.7) k/uL Basophils # 0.0 (0-0.2) k/uL Hypochromasia Moderate Poikilocytosis Slight PT 12.1 H (9.0-12.0) sec INR 1.2 H (<1.2) APTT 28.7 (22.0-30.0) sec Sodium (137-145) mmol/L Potassium (3.5-5.1) mmol/L Chloride (98-107) mmol/L Carbon Dioxide (22-30) mmol/L Anion Gap mmol/L BUN (9-20) mg/dL Creatinine (0.66-1.25) mg/dL Est GFR (CKD-EPI)AfAm (>60 ml/min/1.73 sqM) Est GFR (CKD-EPI)NonAf (>60 ml/min/1.73 sqM) Glucose (74-99) mg/dL Calcium (8.4-10.2) mg/dL Phosphorus (2.5-4.5) mg/dL Magnesium (1.6-2.3) mg/dL Total Bilirubin (0.2-1.3) mg/dL AST (17-59) U/L ALT (4-49) U/L Alkaline Phosphatase (38-126) U/L Ammonia (<30) umol/L Troponin I (0.000-0.034) ng/mL Total Protein (6.3-8.2) g/dL Albumin (3.5-5.0) g/dL Urine Color Urine Appearance (Clear) Urine pH (5.0-8.0) Ur Specific [place] (1.001-1.035) Urine Protein (Negative) Urine Glucose (UA) (Negative) Urine Ketones (Negative) Urine Blood (Negative) Urine Nitrite (Negative) Urine Bilirubin (Negative) Urine Urobilinogen (<2.0) mg/dL Ur Leukocyte Esterase (Negative) Urine RBC (0-5) /hpf Urine WBC (0-5) /hpf Amorphous Sediment (None) /hpf Urine Bacteria (None) /hpf Hyaline Casts (0-2) /lpf Granular Casts (0) /lpf Urine Opiates Screen Not Detected (NotDetected) Ur Oxycodone Screen Not Detected (NotDetected) Urine Methadone Screen Not Detected (NotDetected) Ur Propoxyphene Screen Not Detected (NotDetected) Ur Barbiturates Screen Not Detected (NotDetected) U Tricyclic Antidepress Not Detected (NotDetected) Ur Phencyclidine Scrn Not Detected (NotDetected) Ur Amphetamines Screen Not Detected (NotDetected) U Methamphetamines Scrn Not Detected (NotDetected) U Benzodiazepines Scrn Not Detected (NotDetected) Urine Cocaine Screen Not Detected (NotDetected) U Marijuana (THC) Screen Not Detected (NotDetected) Serum Alcohol mg/dL 11/24/22 11/24/22 11/24/22 Range/Units 01:51 01:51 01:51 WBC (3.8-10.6) k/uL RBC (4.30-5.90) m/uL Hgb (13.0-17.5) gm/dL Hct (39.0-53.0) % MCV (80.0-100.0) fL MCH (25.0-35.0) pg MCHC (31.0-37.0) g/dL RDW (11.5-15.5) % Plt Count (150-450) k/uL MPV Neutrophils % % Lymphocytes % % Monocytes % % Eosinophils % % Basophils % % Neutrophils # (1.3-7.7) k/uL Lymphocytes # (1.0-4.8) k/uL Monocytes # (0-1.0) k/uL Eosinophils # (0-0.7) k/uL Basophils # (0-0.2) k/uL Hypochromasia Poikilocytosis PT (9.0-12.0) sec INR (<1.2) APTT (22.0-30.0) sec Sodium 143 (137-145) mmol/L Potassium 3.4 L (3.5-5.1) mmol/L Chloride 119 H (98-107) mmol/L Carbon Dioxide 18 L (22-30) mmol/L Anion Gap 6 mmol/L BUN 18 (9-20) mg/dL Creatinine 0.85 (0.66-1.25) mg/dL Est GFR (CKD-EPI)AfAm >90 (>60 ml/min/1.73 sqM) Est GFR (CKD-EPI)NonAf 78 (>60 ml/min/1.73 sqM) Glucose 89 (74-99) mg/dL Calcium 7.7 L (8.4-10.2) mg/dL Phosphorus 3.0 (2.5-4.5) mg/dL Magnesium 2.3 (1.6-2.3) mg/dL Total Bilirubin 1.4 H (0.2-1.3) mg/dL AST 33 (17-59) U/L ALT 15 (4-49) U/L Alkaline Phosphatase 73 (38-126) U/L Ammonia <9 (<30) umol/L Troponin I 0.018 (0.000-0.034) ng/mL Total Protein 5.7 L (6.3-8.2) g/dL Albumin 2.3 L (3.5-5.0) g/dL Urine Color Urine Appearance (Clear) Urine pH (5.0-8.0) Ur Specific [place] (1.001-1.035) Urine Protein (Negative) Urine Glucose (UA) (Negative) Urine Ketones (Negative) Urine Blood (Negative) Urine Nitrite (Negative) Urine Bilirubin (Negative) Urine Urobilinogen (<2.0) mg/dL Ur Leukocyte Esterase (Negative) Urine RBC (0-5) /hpf Urine WBC (0-5) /hpf Amorphous Sediment (None) /hpf Urine Bacteria (None) /hpf Hyaline Casts (0-2) /lpf Granular Casts (0) /lpf Urine Opiates Screen (NotDetected) Ur Oxycodone Screen (NotDetected) Urine Methadone Screen (NotDetected) Ur Propoxyphene Screen (NotDetected) Ur Barbiturates Screen (NotDetected) U Tricyclic Antidepress (NotDetected) Ur Phencyclidine Scrn (NotDetected) Ur Amphetamines Screen (NotDetected) U Methamphetamines Scrn (NotDetected) U Benzodiazepines Scrn (NotDetected) Urine Cocaine Screen (NotDetected) U Marijuana (THC) Screen (NotDetected) Serum Alcohol <10 mg/dL 11/24/22 Range/Units 05:02 WBC (3.8-10.6) k/uL RBC (4.30-5.90) m/uL Hgb (13.0-17.5) gm/dL Hct (39.0-53.0) % MCV (80.0-100.0) fL MCH (25.0-35.0) pg MCHC (31.0-37.0) g/dL RDW (11.5-15.5) % Plt Count (150-450) k/uL MPV Neutrophils % % Lymphocytes % % Monocytes % % Eosinophils % % Basophils % % Neutrophils # (1.3-7.7) k/uL Lymphocytes # (1.0-4.8) k/uL Monocytes # (0-1.0) k/uL Eosinophils # (0-0.7) k/uL Basophils # (0-0.2) k/uL Hypochromasia Poikilocytosis PT (9.0-12.0) sec INR (<1.2) APTT (22.0-30.0) sec Sodium (137-145) mmol/L Potassium (3.5-5.1) mmol/L Chloride (98-107) mmol/L Carbon Dioxide (22-30) mmol/L Anion Gap mmol/L BUN (9-20) mg/dL Creatinine (0.66-1.25) mg/dL Est GFR (CKD-EPI)AfAm (>60 ml/min/1.73 sqM) Est GFR (CKD-EPI)NonAf (>60 ml/min/1.73 sqM) Glucose (74-99) mg/dL Calcium (8.4-10.2) mg/dL Phosphorus (2.5-4.5) mg/dL Magnesium (1.6-2.3) mg/dL Total Bilirubin (0.2-1.3) mg/dL AST (17-59) U/L ALT (4-49) U/L Alkaline Phosphatase (38-126) U/L Ammonia (<30) umol/L Troponin I (0.000-0.034) ng/mL Total Protein (6.3-8.2) g/dL Albumin (3.5-5.0) g/dL Urine Color Light [place] Urine Appearance Cloudy (Clear) Urine pH 5.5 (5.0-8.0) Ur Specific [place] 1.025 (1.001-1.035) Urine Protein 1+ H (Negative) Urine Glucose (UA) Negative (Negative) Urine Ketones Trace H (Negative) Urine Blood Large H (Negative) Urine Nitrite Negative (Negative) Urine Bilirubin Negative (Negative) Urine Urobilinogen 0.2 (<2.0) mg/dL Ur Leukocyte Esterase Moderate (Negative) Urine RBC >182 H (0-5) /hpf Urine WBC 25 H (0-5) /hpf Amorphous Sediment Moderate H (None) /hpf Urine Bacteria Moderate H (None) /hpf Hyaline Casts 15 H (0-2) /lpf Granular Casts 10 (0) /lpf Urine Opiates Screen (NotDetected) Ur Oxycodone Screen (NotDetected) Urine Methadone Screen (NotDetected) Ur Propoxyphene Screen (NotDetected) Ur Barbiturates Screen (NotDetected) U Tricyclic Antidepress (NotDetected) Ur Phencyclidine Scrn (NotDetected) Ur Amphetamines Screen (NotDetected) U Methamphetamines Scrn (NotDetected) U Benzodiazepines Scrn (NotDetected) Urine Cocaine Screen (NotDetected) U Marijuana (THC) Screen (NotDetected) Serum Alcohol mg/dL - EKG Data -: EKG Interpreted by Me (EKG is A. fib with RVR 124 QRS 72 QTC 447) - Radiology Data Radiology results: report reviewed (Chest x-rays negative for acute disease), image reviewed Critical Care Time Critical Care Time: Yes Total Critical Care Time: 31 Disposition Clinical Impression: Altered mental status, Weakness, Atrial fibrillation with RVR Disposition: ADMITTED IP TO THIS HOSP Condition: Fair Is patient prescribed a controlled substance at d/c from ED?: No Time of Disposition: 05:30
[2022-11-24 02:26] LABS: ALT 15 U/L (4-49); AST 33 U/L (17-59); African American GFR (CKD) >90 (>60 ml/min/1.73 sqM); Albumin 2.3 g/dL (3.5-5.0); Alcohol <10 mg/dL; Alkaline Phosphatase 73 U/L (38-126); Anion Gap 6 mmol/L; Blood Urea Nitrogen 18 mg/dL (9-20); Calcium 7.7 mg/dL (8.4-10.2); Carbon Dioxide 18 mmol/L (22-30); Chloride 119 mmol/L (98-107); Glucose 89 mg/dL (74-99); Magnesium 2.3 mg/dL (1.6-2.3); Non-African American GFR(CKD) 78 (>60 ml/min/1.73 sqM); Potassium 3.4 mmol/L (3.5-5.1); Sodium 143 mmol/L (137-145); Total Bilirubin 1.4 mg/dL (0.2-1.3); Total Protein 5.7 g/dL (6.3-8.2)
[2022-11-24 02:41] LABS: INR 1.2 (<1.2); Partial Thromboplastin Time 28.7 sec (22.0-30.0); Prothrombin Time 12.1 sec (9.0-12.0)
[2022-11-24] MEDS: DILTIAZEM 125 MG in SODIUM CHLORIDE 0.9% 100 ML IV SCH ×2 (02:44→23:47)
[2022-11-24] MEDS ORDERED: ONDANSETRON 4 MG/2 ML VIAL IVP PRN (05:38)
[2022-11-24] MEDS ORDERED: NALOXONE 0.4 MG/ML 1 ML VIAL IV PRN (05:38)
[2022-11-24] MEDS ORDERED: MORPHINE SULFATE 4 MG/ML SYRINGE IV PRN (05:38)
--- NOTE | 2022-11-24 06:03 | XR ---
EXAM: XR Chest, 1 View CLINICAL HISTORY: ITS.REASON XR Reason: weak TECHNIQUE: Frontal view of the chest. COMPARISON: Radiograph dated 11/09/2022 FINDINGS: Lungs: Course lung markings are seen bilaterally. No evidence of infiltrate or effusion. Pleural space: Unremarkable. No pneumothorax. Heart: Mild prominence of the cardiac silhouette. Mediastinum: Unremarkable. Bones/joints: Degenerative changes are seen within the spine and shoulders. Tubes, lines and devices: The cardiac conduction device overlies the left chest wall with 2 leads overlying the cardiac silhouette. IMPRESSION: No acute cardiopulmonary disease.
[2022-11-24 06:38] LABS: Amphetamine Screen,Urine Not Detected (NotDetected); Barbiturate Screen,Urine Not Detected (NotDetected); Benzodiazepines Screen,Urine Not Detected (NotDetected); Cocaine Screen,Urine Not Detected (NotDetected); Methadone Screen, Urine Not Detected (NotDetected); Opiate Screen,Urine Not Detected (NotDetected); Oxycodone Screen, Urine Not Detected (NotDetected); Phencyclidine Screen,Urine Not Detected (NotDetected); Tricyclic Antidepressant,Urine Not Detected (NotDetected); Urn Cannabinoid Scrn Not Detected (NotDetected)
[2022-11-24 06:41] LABS: Appearance,Urine Cloudy (Clear); Color,Urine Light Orange
[2022-11-24 06:42] LABS: Bilirubin,Urine Negative (Negative); Blood,Urine Large (Negative); Glucose,Urine (UA) Negative (Negative); Ketones,Urine Trace (Negative); Leukocyte Esterase,Urine Moderate (Negative); Nitrite,Urine Negative (Negative); PH, Urine 5.5 (5.0-8.0); Protein,Urine 1+ (Negative); Specific Gravity,Urine 1.025 (1.001-1.035); Urobilinogen,Urine 0.2 mg/dL (<2.0); WBC,Urine 25 /hpf (0-5)
[2022-11-24 06:43] LABS: Amorphous Sediment,Urine Moderate /hpf; Bacteria,Urine Moderate /hpf; Granular Casts,Urine 10 /lpf (0); Hyaline Casts,Urine 15 /lpf (0-2); RBC,Urine >182 /hpf (0-5)
[2022-11-24 07:50] LABS: Glucose,Whole Blood 77 mg/dL (70-110)
[2022-11-24 09:35] VITALS: RESP 18
[2022-11-24] MEDS: METOPROLOL TARTRATE 25 MG TAB PO SCH ×2 (13:01→20:04)
[2022-11-24] MEDS: ENOXAPARIN 80 MG/0.8 ML SYRINGE SQ SCH (13:01)
[2022-11-24] MEDS: POTASSIUM CHLORIDE ER 10 MEQ TAB.ER.PRT PO SCH ×2 (13:01→14:11)
[2022-11-24] MEDS ORDERED: NON FORMULARY DRUG (Cefazolin 2 GM/20 ML Each) IVP SCH (14:30)
--- NOTE | 2022-11-24 14:37 | P.HPIM ---
History of Present Illness H&P Date: 11/24/22 This is an 87-year-old male with medical history of atrial fibrillation, stroke, hyperlipidemia, neuropathy. Per the patient's family at bedside, Patient may have had a stroke about 5 weeks ago he was then transferred from [facility] on to [facility] where he underwent a carotid stent. He was then sent to [facility] for discharge and was sent to [facility] due to AMS was admitted for a two-week stay where he was treated for acute UTI and sepsis and discharged with IV cefazolin for 2 week therapy through PICC line. [facility] status and atrial fib with rapid ventricular rate, heart rate on admission was found to be 124. Patient is on metoprolol 12.5 mg twice a day which has been resumed and increased to 25 mg twice a day, and Cardizem drip recommending to be discontinued. Patient is also on Coumadin outpatient which has been resumed INR is only 1.2 and he is on a Lovenox bridge for this with goal INR between 2 and 3. Heart rate is around 90s patients does remain in atrial fibrillation. His follow up urinalysis this admi ssion is improving and antibiotics will be continued as well as other appropriate home medications. He is not sure why he was [facility] family stated they did not request this patient was sent in at the discretion of the staff. Patient is alert x 2-3 is able to tell me his name data and where he sees not sure why he came back to the hospital. He is slightly confused. He is currently denying any chest pain, denying shortness of breath, denying any nausea vomiting or diarrhea. He had a chest x-ray done that was negative. His potassium was low at 3.4. He is admitted under medicine. Family is requesting hospice consultation. REVIEW OF SYSTEMS: CONSTITUTIONAL: No fever, no malaise, no fatigue. HEENT: No recent visual problems or hearing problems. Denied any sore throat. CARDIOVASCULAR: No chest pain, orthopnea, PND, no palpitations, no syncope. PULMONARY: No shortness of breath, no cough, no hemoptysis. GASTROINTESTINAL: No diarrhea, no nausea, no vomiting, no abdominal pain. NEUROLOGICAL: No headaches, no weakness, no numbness. HEMATOLOGICAL: Denies any bleeding or petechiae. GENITOURINARY: Denies any burning micturition, frequency, or urgency. MUSCULOSKELETAL/RHEUMATOLOGICAL: Denies any joint pain, swelling, or any muscle pain. ENDOCRINE: Denies any polyuria or polydipsia. The rest of the 14-point review of systems is negative. PHYSICAL EXAMINATION: GENERAL: The patient is alert and oriented x2-3 with some confusion not in any acute distress. Well developed, well nourished. HEENT: Pupils are round and equally reacting to light. EOMI. No scleral icterus. No conjunctival pallor. Normocephalic, atraumatic. No pharyngeal erythema. No thyromegaly. CARDIOVASCULAR: S1 and S2 present. No murmurs, rubs, or gallops. Irregular rate and rhythm. PULMONARY: Chest is clear to auscultation, no wheezing or crackles. ABDOMEN: Soft, nontender, nondistended, normoactive bowel sounds. No palpable organomegaly. MUSCULOSKELETAL: No joint swelling or deformity. EXTREMITIES: No cyanosis, clubbing, or pedal edema. NEUROLOGICAL: Diffuse generalized weakness. SKIN: No rashes Assessment Altered mental status likely due to acute metabolic encephalopathy patient feels he may have had some slight underlying dementia also History of atrial fibrillation chronic with rapid ventricular rate on admission, now he is controlled Coumadin monitoring INR currently 1.2 Recent hospitalization for urinary tract infection and urinary retention patient did require indwelling Tabares catheter which continues History of right groin pseudoaneurysm History of stroke History of carotid artery disease with recent carotid artery stenting Hypokalemia History of sick sinus syndrome History of peripheral neuropathy Major cognitive impairment, likely late onset Alzheimer's dementia GERD BPH History of Bilateral chronic rotator cuff arthropathy. Possible chronic stress fracture left acromion from the ongoing glenohumeral joint instability. Moderate bilateral AC joint OA. Chronic medical debility GI prophylaxis DVT prophylaxis No code Plan Continue with strict aspiration precautions head of bed should be up 30 all times patient is on a dysphagia chopped diet and supervision with meals PICC line in place and continue IV antibiotics with IV cefazolin from prior hospital stay to complete a two-week therapy Recommend to continue coumadin with lovenox bridge and daily PT/INR monitoring Resume appropriate home medications including metoprolol whic is being increased and recommending cardizem by discontinued at this time. Continue cardiac monitoring Hospice consult placed for end of life informational session and social work has been consulted for DC planning. Replace potassium and repeat labs in a.m. The impression and plan of care has been dictated by Jeanine Tabor, Nurse Practitioner as directed. Dr. Yonathan MD I have performed a history and physical examination and medical decision making of this patient, discussed the same with the dictator, and agree with the dictators assessment and plan as written, documented as a scribe. Based on total visit time, I have performed more than 50% of this visit. Past Medical History Past Medical History: Atrial Fibrillation, CVA/TIA, Hyperlipidemia Additional Past Medical History / Comment(s): See Dr Weaver H&P,neuropathy, hx kidney stone History of Any Multi-Drug Resistant Organisms: None Reported Past Surgical History: Appendectomy, Heart Catheterization Past Anesthesia/Blood Transfusion Reactions: No Reported Reaction Past Psychological History: No Psychological Hx Reported Smoking Status: Never smoker Past Alcohol Use History: Occasional Past Drug Use History: None Reported - Past Family History Mother Family Medical History: Cancer Medications and Allergies Home Medications Medication Instructions Recorded Confirmed Type Aspirin 81 mg PO DAILY@0912/09/13 11/09/22 History Finasteride 5 mg PO HS@209912/09/13 11/09/22 History Cholecalciferol [Vitamin D3 (25 25 mcg PO DAILY@89911/09/22 11/09/22 History Mcg = 1000 Iu)] EPINEPHrine (Auto Inject) [Epipen] 0.3 mg IM ONCE PRN 11/09/22 11/09/22 History Famotidine [Pepcid] 20 mg PO DAILY@89911/09/22 11/09/22 History Olanzapine Reconstituted 2.5 mg IM Q4H PRN 11/09/22 11/09/22 History Simvastatin [Zocor] 20 mg PO HS@209911/09/22 11/09/22 History Tamsulosin [Flomax] 0.4 mg PO HS@209911/09/22 11/09/22 History risperiDONE [RisperDAL] 0.25 mg PO BID@0900,209911/09/22 11/09/22 History Acetaminophen Tab [Tylenol] 650 mg PO Q6HR PRN tab 11/22/22 Rx Enoxaparin [Lovenox] 80 mg SQ DAILY 4 Days #4 each 11/22/22 Rx Metoprolol Tartrate [Lopressor] 12.5 mg PO BID tab 11/22/22 Rx Potassium Chloride ER [K-Dur 20] 20 meq PO BID tab 11/22/22 Rx ceFAZolin [Kefzol] 2 gm IVP Q8H 14 Days #42 each 11/22/22 Rx Allergies Allergy/AdvReac Type Severity Reaction Status Date / Time acetaminophen [From Vicodin] Allergy Unknown Verified 11/09/22 16:56 atorvastatin [From Lipitor] Allergy Unknown, Verified 11/09/22 16:[address] [facility] bee venom protein (honey bee) Allergy Unknown, Verified 11/09/22 16:[address] [facility] ezetimibe [From Zetia] Allergy Unknown, Verified 11/09/22 16:[address] [facility] hydrocodone bitartrate Allergy Unknown, Verified 11/09/22 16:56 [From Vicodin] Information from [facility] metronidazole [From Flagyl] Allergy Unknown, Verified 11/09/22 16:[address] [facility] nitrofurantoin Allergy Unknown, Verified 11/09/22 16:56 [From Macrodantin] Information from [facility] Physical Exam Vitals: Vital Signs Temp Pulse Resp BP Pulse Ox 11/24/22 10:00 103 H 18 114/70 97 11/24/22 07:53 84 16 97/64 97 11/24/22 05:38 91 14 104/51 95 11/24/22 05:00 80 14 109/50 95 11/24/22 04:30 99 16 106/52 95 11/24/22 04:00 99 16 109/59 95 11/24/22 03:30 102 H 18 99/61 95 11/24/22 03:00 105 H 18 105/57 95 11/24/22 02:41 99 16 100/66 95 11/24/22 02:40 112 H 20 100/64 99 11/24/22 01:53 97.8 F 135 H 20 117/82 98 Intake and Output 11/23/22 11/24/22 11/24/22 22:59 06:59 14:59 Intake Total 90 Balance 90 Intake: Oral 90 Other: Weight 81.647 kg Results CBC & Chem 7: 11/24/22 01:51 11/24/22 01:51 Labs: Abnormal Lab Results - Last 24 Hours (Table) 11/24/22 11/24/22 11/24/22 Range/Units 01:51 01:51 01:51 RBC 2.88 L (4.30-5.90) m/uL Hgb 9.0 L (13.0-17.5) gm/dL Hct 26.8 L (39.0-53.0) % PT 12.1 H (9.0-12.0) sec INR 1.2 H (<1.2) Potassium 3.4 L (3.5-5.1) mmol/L Chloride 119 H (98-107) mmol/L Carbon Dioxide 18 L (22-30) mmol/L Calcium 7.7 L (8.4-10.2) mg/dL Total Bilirubin 1.4 H (0.2-1.3) mg/dL Total Protein 5.7 L (6.3-8.2) g/dL Albumin 2.3 L (3.5-5.0) g/dL Urine Protein (Negative) Urine Ketones (Negative) Urine Blood (Negative) Urine RBC (0-5) /hpf Urine WBC (0-5) /hpf Amorphous Sediment (None) /hpf Urine Bacteria (None) /hpf Hyaline Casts (0-2) /lpf 11/24/22 Range/Units 05:02 RBC (4.30-5.90) m/uL Hgb (13.0-17.5) gm/dL Hct (39.0-53.0) % PT (9.0-12.0) sec INR (<1.2) Potassium (3.5-5.1) mmol/L Chloride (98-107) mmol/L Carbon Dioxide (22-30) mmol/L Calcium (8.4-10.2) mg/dL Total Bilirubin (0.2-1.3) mg/dL Total Protein (6.3-8.2) g/dL Albumin (3.5-5.0) g/dL Urine Protein 1+ H (Negative) Urine Ketones Trace H (Negative) Urine Blood Large H (Negative) Urine RBC >182 H (0-5) /hpf Urine WBC 25 H (0-5) /hpf Amorphous Sediment Moderate H (None) /hpf Urine Bacteria Moderate H (None) /hpf Hyaline Casts 15 H (0-2) /lpf Assessment and Plan Time with Patient: Greater than 30
[2022-11-24] MEDS ORDERED: WARFARIN 2.5 MG TAB PO ONE (18:00)
[2022-11-24] MEDS: risperiDONE 0.25 MG TAB PO SCH (20:04)
[2022-11-24] MEDS ORDERED: NON FORMULARY DRUG (Simvastatin 20 MG Tab) PO SCH (21:00)
[2022-11-24] MEDS ORDERED: TAMSULOSIN 0.4 MG CAP.ER.24H PO SCH (21:00)
[2022-11-24] MEDS ORDERED: FINASTERIDE 5 MG TAB PO SCH (21:00)
[2022-11-25] MEDS ORDERED: ASPIRIN 81 MG PO SCH (09:00)
[2022-11-25] MEDS: ENOXAPARIN 80 MG/0.8 ML SYRINGE SQ SCH (09:29)
[2022-11-25 10:50] VITALS: PULSE 110; TEMP 98
[2022-11-25 11:56] LABS: INR 1.2 (<1.2); Prothrombin Time 12.6 sec (9.0-12.0)
[2022-11-25 12:09] LABS: ALT 11 U/L (4-49); AST 30 U/L (17-59); African American GFR (CKD) >90 (>60 ml/min/1.73 sqM); Albumin 2.2 g/dL (3.5-5.0); Alkaline Phosphatase 71 U/L (38-126); Anion Gap 10 mmol/L; Blood Urea Nitrogen 13 mg/dL (9-20); Calcium 7.5 mg/dL (8.4-10.2); Carbon Dioxide 17 mmol/L (22-30); Chloride 122 mmol/L (98-107); Glucose 70 mg/dL (74-99); Magnesium 2.2 mg/dL (1.6-2.3); Non-African American GFR(CKD) 86 (>60 ml/min/1.73 sqM); Potassium 3.2 mmol/L (3.5-5.1); Sodium 149 mmol/L (137-145); Total Bilirubin 1.2 mg/dL (0.2-1.3); Total Protein 5.4 g/dL (6.3-8.2)
[2022-11-25 12:37] LABS: Basophils % (A) 0 %; Eosinophils # (A) 0.1 k/uL (0-0.7); Eosinophils % (A) 1 %; HCT 28.5 % (39.0-53.0); HGB 9.1 gm/dL (13.0-17.5); Hypochromasia Marked; Lymphocytes # (A) 0.9 k/uL (1.0-4.8); Lymphocytes % (A) 14 %; MCH 31.2 pg (25.0-35.0); MCHC 31.9 g/dL (31.0-37.0); MCV 97.6 fL (80.0-100.0); Macrocytosis Slight; Mean Platelet Volume 8.9; Monocytes # (A) 0.3 k/uL (0-1.0); Monocytes % (A) 4 %; Neutrophils # (A) 5.1 k/uL (1.3-7.7); Neutrophils % (A) 79 %; Platelet Count 274 k/uL (150-450); Poikilocytosis Slight; RBC 2.92 m/uL (4.30-5.90); RDW 15.6 % (11.5-15.5); WBC 6.4 k/uL (3.8-10.6)
[2022-11-25] MEDS ORDERED: DEXTROSE 5% IN WATER 1,000 ML IV ONE (13:05)
--- NOTE | 2022-11-25 13:10 | P.PN ---
Subjective Progress Note Date: 11/25/22 This is an 87-year-old male with medical history of atrial fibrillation, stroke, hyperlipidemia, neuropathy. Per the patient's family at bedside, Patient may have had a stroke about 5 weeks ago he was then transferred from [facility] on to [facility] where he underwent a carotid stent. He was then sent to [facility] for discharge and was sent to [facility] due to AMS was admitted for a two- week stay where he was treated for acute UTI and sepsis and discharged with IV cefazolin for 2 week therapy through PICC line. Patient has been sent back from the shelter for worsening mental status and atrial fib with rapid ventricular rate, heart rate on admission was found to be 124. Patient is on m etoprolol 12.5 mg twice a day which has been resumed and increased to 25 mg twice a day, and Cardizem drip recommending to be discontinued. Patient is also on Coumadin outpatient which has been resumed INR is only 1.2 and he is on a Lovenox bridge for this with goal INR between 2 and 3. Heart rate is around 90s patients does remain in atrial fibrillation. His follow up urinalysis this admission is improving and antibiotics will be continued as well as other appropriate home medications. He is not sure why he was sent back from the shelter family stated they did not request this patient was sent in at the discretion of the staff. Patient is alert x 2-3 is able to tell me his name data and where he sees not sure why he came back to the hospital. He is slightly confused. He is currently denying any chest pain, denying shortness of breath, denying any nausea vomiting or diarrhea. He had a chest x-ray done that was negative. His potassium was low at 3.4. He is admitted under medicine. Family is requesting hospice consultation. 11/25/2022 Patient is evaluated today resting in bed. He remains with diffuse weakness. He has been resumed on his IV antibiotics via his PICC line from prior hospitalization. Plan for today is for family to meet with [facility] for discharge planning. He does have some localized edema to the left hand with small wound on the top with some yellowing slough. Potassium is low 3.2 and also sodium up to 149 today. Patient remains in atrial fibrillation he is on room air, he is afebrile. Review of Systems Constitutional: Denied any fatigue denied any fever. Cardio vascular: denied any chest pain, palpitations Gastrointestinal: denied any nausea, vomiting, diarrhea Pulmonary: Denied any shortness of breath cough Neurologic denied any new focal deficits All inpatient medications were reviewed and appropriate changes in these medications as dictated in the interval history and assessment and plan. PHYSICAL EXAMINATION: GENERAL: The patient is alert and oriented x2-3 with some confusion not in any acute distress. Well developed, well nourished. HEENT: Pupils are round and equally reacting to light. EOMI. No scleral icterus. No conjunctival pallor. Normocephalic, atraumatic. No pharyngeal erythema. No thyromegaly. CARDIOVASCULAR: S1 and S2 present. No murmurs, rubs, or gallops. Irregular rate and rhythm. PULMONARY: Chest is clear to auscultation, no wheezing or crackles. ABDOMEN: Soft, nontender, nondistended, normoactive bowel sounds. No palpable organomegaly. MUSCULOSKELETAL: No joint swelling or deformity. EXTREMITIES: No cyanosis, clubbing, or pedal edema. NEUROLOGICAL: Diffuse generalized weakness. SKIN: No rashes Assessment Altered mental status likely due to acute metabolic encephalopathy patient feels he may have had some slight underlying dementia also History of atrial fibrillation chronic with rapid ventricular rate on admission, now he is controlled Coumadin monitoring INR currently 1.2 Hypovolemic hypernatremia patient is having poor oral intake patient will be started on D5 water Recent hospitalization for urinary tract infection and urinary retention patient did require indwelling Tabares catheter which continues History of right groin pseudoaneurysm History of stroke History of carotid artery disease with recent carotid artery stenting Hypokalemia History of sick sinus syndrome History of peripheral neuropathy Major cognitive impairment, likely late onset Alzheimer's dementia GERD BPH History of Bilateral chronic rotator cuff arthropathy. Possible chronic stress fracture left acromion from the ongoing glenohumeral joint instability. Moderate bilateral AC joint OA. Chronic medical debility GI prophylaxis DVT prophylaxis No code Plan Continue with strict aspiration precautions head of bed should be up 30 all times patient is on a dysphagia chopped diet and supervision with meals PICC line in place and continue IV antibiotics with IV cefazolin from prior hospital stay to complete a two-week therapy Recommend to continue coumadin with lovenox bridge and daily PT/INR monitoring Patient remains off Cardizem at this time She will receive oral potassium supplementation today and also will be started on a D5 water drip and repeat labs in the morning. Hospice consult placed for end of life informational session and social work has been consulted for DC planning. Plan is for family to tour the [facility] and likely will discharge tomorrow. Replace potassium and repeat labs in a.m. The impression and plan of care has been dictated by Jeanine Tabor, Nurse Practitioner as directed. Dr. Yonathan MD I have performed a history and physical examination and medical decision making of this patient, discussed the same with the dictator, and agree with the dictators assessment and plan as written, documented as a scribe. Based on total visit time, I have performed more than 50% of this visit. Objective - Vital Signs Vital signs: Vital Signs Temp 98.0 F 11/25/22 08:00 Pulse 110 H 11/25/22 08:00 Resp 18 11/25/22 08:00 BP 118/69 11/25/22 08:00 Pulse Ox 98 11/25/22 08:00 FiO2 Intake & Output 11/24/22 11/25/22 11/25/22 18:59 06:59 18:59 Intake Total 90 0 Output Total 800 200 Balance 90 -800 -200 Intake: Oral 90 0 Output: Urine 800 200 Other: Voiding Method Indwelling Catheter Indwelling Catheter Indwelling Catheter # Bowel Movements 1 - Labs CBC & Chem 7: 11/25/22 11:24 11/25/22 11:24 Labs: Abnormal Lab Results - Last 24 Hours (Table) 11/25/22 11/25/22 11/25/22 Range/Units 11:24 11:24 11:24 RBC 2.92 L (4.30-5.90) m/uL Hgb 9.1 L (13.0-17.5) gm/dL Hct 28.5 L (39.0-53.0) % RDW 15.6 H (11.5-15.5) % Lymphocytes # 0.9 L (1.0-4.8) k/uL PT 12.6 H (9.0-12.0) sec INR 1.2 H (<1.2) Sodium 149 H (137-145) mmol/L Potassium 3.2 L (3.5-5.1) mmol/L Chloride 122 H (98-107) mmol/L Carbon Dioxide 17 L (22-30) mmol/L Glucose 70 L (74-99) mg/dL Calcium 7.5 L (8.4-10.2) mg/dL Total Protein 5.4 L (6.3-8.2) g/dL Albumin 2.2 L (3.5-5.0) g/dL Assessment and Plan Time with Patient: Less than 30
[2022-11-25] MEDS ORDERED: SODIUM CHLORIDE 0.9% 1,000 ML IV SCH (13:15)
--- NOTE | 2022-11-25 15:38 | P.DS ---
Providers Date of admission: 11/24/22 05:38 Attending physician: Taylor Ness Primary care physician: Evan Strange Hospital Course: Final Diagnosis Altered mental status likely due to acute metabolic encephalopathy patient feels he may have had some slight underlying dementia also History of atrial fibrillation chronic with rapid ventricular rate on admission, now he is controlled Coumadin monitoring INR currently 1.2 Hypovolemic hypernatremia patient is having poor oral intake patient will be started on D5 water Recent hospitalization for urinary tract infection and urinary retention patient did require indwelling Tabares catheter which continues History of right groin pseudoaneurysm History of stroke History of carotid artery disease with recent carotid artery stenting Hypokalemia History of sick sinus syndrome History of peripheral neuropathy Major cognitive impairment, likely late onset Alzheimer's dementia GERD BPH History of Bilateral chronic rotator cuff arthropathy. Possible chronic stress fracture left acromion from the ongoing glenohumeral joint instability. Moderate bilateral AC joint OA. Chronic medical debility GI prophylaxis DVT prophylaxis No code Discharge Disposition Patient will be discharging to [facility]. Patient to see his PCP Dr. Strange. Hospital Course This is an 87-year-old male with medical history of atrial fibrillation, stroke, hyperlipidemia, neuropathy. Per the patient's family at bedside, Patient may have had a stroke about 5 weeks ago he was then transferred from [facility] on to [facility] where he underwent a carotid stent. He was then sent to [facility] for discharge and was sent to [facility] due to AMS was admitted for a two- week stay where he was treated for acute UTI and sepsis and discharged with IV cefazolin for 2 week therapy through PICC line. [facility] and atrial fib with rapid ventricular rate, heart rate on admission was found to be 124. Patient is on metoprolol 12.5 mg twice a day which has been resumed and increased to 25 mg twice a day, and Cardizem drip recommending to be discontinued. Patient is also on Coumadin outpatient which has been resumed INR is only 1.2 and he is on a Lovenox bridge for this with goal INR between 2 and 3. Heart rate is around 90s patients does remain in atrial fibrillation. His follow up urinalysis this admission is improving and antibiotics will be continued as well as other appropriate home medications. He is admitted to the hospital under medicine with cardiology consultation with the afib rvr. He has been transitioned off cardizem resumed on home medications and potassium replaced. No acute complaints. He is alert x 2 to 3 having moments of confusion. Patient with low karnofsky score and poor functionality, family has requested hospice consultation. Patient has been accepted at [facility] and will be discharged today. He has PICC line in place and to finish IV abx on 11/05/22. His lungs are clear, S1 S2 auscultated irregular rate and rhythm. Please see medication reconciliation for a list of current medication. Thank you for allowing us to participate in the care of this patient. The impression and plan of care has been dictated by Jeanine Tabor, Nurse Practitioner as directed. Dr. Yonathan MD I have performed a history and physical examination and medical decision making of this patient, discussed the same with the dictator, and agree with the dictators assessment and plan as written, documented as a scribe. Based on total visit time, I have performed more than 50% of this visit. Patient Condition at Discharge: Fair Plan - Discharge Summary New Discharge Prescriptions: New Warfarin [Coumadin] 5 mg PO 1800 tab Metoprolol Tartrate [Lopressor] 25 mg PO BID tab Continue Aspirin 81 mg PO DAILY Finasteride 5 mg PO HS Simvastatin [Zocor] 20 mg PO HS Enoxaparin [Lovenox] 80 mg SQ DAILY 4 Days #4 each ceFAZolin [Kefzol] 2 gm IVP Q8HR@0600,1600,2200 EPINEPHrine (Auto Inject) [Epipen] 0.3 mg IM ONCE PRN PRN Reason: Anaphylaxis risperiDONE [RisperDAL] 0.25 mg PO BID@0900,2100 Tamsulosin [Flomax] 0.4 mg PO HS Famotidine [Pepcid] 20 mg PO DAILY Cholecalciferol [Vitamin D3 (25 Mcg = 1000 Iu)] 25 mcg PO DAILY Acetaminophen Tab [Tylenol] 650 mg PO Q6HR PRN tab PRN Reason: Fever and/ or Mild Pain Potassium Chloride ER [K-Dur 20] 20 meq PO BID@0900,1700 Discontinued Metoprolol Tartrate [Lopressor] 12.5 mg PO BID@0900,1700 Discharge Medication List Aspirin 81 mg PO DAILY 12/09/13 [History] Finasteride 5 mg PO HS 12/09/13 [History] Cholecalciferol [Vitamin D3 (25 Mcg = 1000 Iu)] 25 mcg PO DAILY 11/09/22 [History] EPINEPHrine (Auto Inject) [Epipen] 0.3 mg IM ONCE PRN 11/09/22 [History] Famotidine [Pepcid] 20 mg PO DAILY 11/09/22 [History] Simvastatin [Zocor] 20 mg PO HS 11/09/22 [History] Tamsulosin [Flomax] 0.4 mg PO HS 11/09/22 [History] risperiDONE [RisperDAL] 0.25 mg PO BID@0900,2100 11/09/22 [History] Acetaminophen Tab [Tylenol] 650 mg PO Q6HR PRN tab 11/22/22 [Rx] Enoxaparin [Lovenox] 80 mg SQ DAILY 4 Days #4 each 11/22/22 [Rx] Potassium Chloride ER [K-Dur 20] 20 meq PO BID@0900,1700 11/24/22 [History] ceFAZolin [Kefzol] 2 gm IVP Q8HR@0600,1600,2200 11/24/22 [History] Metoprolol Tartrate [Lopressor] 25 mg PO BID tab 11/25/22 [Rx] Warfarin [Coumadin] 5 mg PO 1800 tab 11/25/22 [Rx] Follow up Appointment(s)/Referral(s): Evan Strange MD [Primary Care Provider] - 1-2 days Activity/Diet/Wound Care/Special Instructions: Patient is being [facility] to [facility] Patient is on Coumadin and will continue with Lovenox bridging until INR is therapeutic between 2 and 3. Patient has received a picc line to continue on IV abx for the next 2 weeks set to be done on 11/05/22. Discharge Disposition: [facility] TO [facility]
[2022-11-25 16:37] VITALS: BP 124/76
[2022-11-25] MEDS: risperiDONE 0.25 MG TAB PO SCH (16:38)
[2022-11-25] MEDS: METOPROLOL TARTRATE 25 MG TAB PO SCH (16:38)
[2022-11-25] MEDS: POTASSIUM CHLORIDE ER 20 MEQ TAB.ER PO SCH (16:38)
[2022-11-25] MEDS ORDERED: WARFARIN 5 MG TAB PO ONE (18:00)
== END 2022-11-25 20:49 | disposition hospice, inpatient (51) ==
LOC: EC 01:45 → 6NMEDSUR 05:38 → 3SCARD 07:22
PROVIDERS: ADMIT Hospitalist; ATTEND Hospitalist
DX: R41.82 Altered mental status, unspecified (principal); E86.0 Dehydration; E86.1 Hypovolemia; E87.0 Hyperosmolality and hypernatremia; I48.20 Chronic atrial fibrillation, unspecified; E78.5 Hyperlipidemia, unspecified; G62.9 Polyneuropathy, unspecified; E87.6 Hypokalemia; I49.5 Sick sinus syndrome; I65.29 Occlusion and stenosis of unspecified carotid artery; K21.9 Gastro-esophageal reflux disease without esophagitis; N40.1 Benign prostatic hyperplasia with lower urinary tract symptoms; R33.9 Retention of urine, unspecified; M19.012 Primary osteoarthritis, left shoulder; M19.011 Primary osteoarthritis, right shoulder; M25.312 Other instability, left shoulder; M25.311 Other instability, right shoulder; I72.4 Aneurysm of artery of lower extremity; R53.81 Other malaise; Z79.82 Long term (current) use of aspirin; Z79.01 Long term (current) use of anticoagulants; Z79.899 Other long term (current) drug therapy; Z88.1 Allergy status to other antibiotic agents; Z88.3 Allergy status to other anti-infective agents; Z88.5 Allergy status to narcotic agent; Z88.6 Allergy status to analgesic agent; Z88.8 Allergy status to other drugs, medicaments and biological substances; Z91.030 Bee allergy status; Z86.73 Personal history of transient ischemic attack (TIA), and cerebral infarction without residual deficits; Z87.442 Personal history of urinary calculi; Z90.49 Acquired absence of other specified parts of digestive tract; Z98.890 Other specified postprocedural states; Z87.440 Personal history of urinary (tract) infections; Z86.19 Personal history of other infectious and parasitic diseases; Z96.0 Presence of urogenital implants; Z95.828 Presence of other vascular implants and grafts; Z80.9 Family history of malignant neoplasm, unspecified
CPT/HCPCS: 96366 ×3; 96367; 96372; 96376; 96365; 99291; 36415; 93005; 80053 ×2; 82140; 83735 ×2; 84100 ×2; 84484; 85025 ×2; 85610 ×2; 85730; 81001; 80306; 71045; G0378 ×3; G0480; J0690 ×2; J1650; 80320